=== PATIENT | male | born 1955 | race Caucasian/White ===

== ENCOUNTER 2018-03-02 00:18 | Emergency (ER) | payer SELFPAY ==
[~2018-03-02] VITALS: Ht 175.3 cm; Wt 122.0 kg
[~2018-03-02 00:18] MED LIST: ALBUAER3 INH; FOLI1TAB6 PO; GABA100C4 PO; IBUP600T26 PO; NICO21DI25 T-DERMAL; PRED20 PO; SODI1TAB PO; SYMB160A INH; THIA100 PO
[2018-03-02 00:27] VITALS: BP 141/86; PULSE 96; RESP 24; TEMP 98.2; O2SAT 96
== END 2018-03-02 02:19 | disposition left against medical advice (07) ==
LOC: NED 00:18
DX: R53.83 Other fatigue (principal)
CPT/HCPCS: 99281

== ENCOUNTER 2018-03-02 11:24 | Emergency (ER) | payer OTHER ==
[~2018-03-02] VITALS: Ht 177.8 cm; Wt 122.5 kg
[2018-03-02 11:30] VITALS: BP 163/86; PULSE 92; RESP 18; TEMP 97.6; O2SAT 100
[2018-03-02 14:02] VITALS: BP 188/91; PULSE 87; RESP 28; O2SAT 100
--- NOTE | 2018-03-02 14:29 | PD ---
HPI Chief Complaint: General Weakness Time Seen by Provider: 13:51 Travel History International Travel<30 days: No Contact w/Intl Traveler<30days: No Traveled to known affect area: No History of Present Illness HPI 62 YO M with PMH of DM, COPD presents to the ED with multiple medical complaints. The patient states that he has been feeling generally weak and tired for the last few days. He states that he was "eaten up by bedbugs and now I have this itchy rash." He states that his feet are swollen and tender. He states that the edema is chronic and improved by elevation of the feet. He states that he has a chronic cough productive of yellow sputum. He complains of intermittent dizziness for the last two days. Improved with rest. No exacerbating factors noted. No associated unilateral weakness, slurred speech. He endorses a single episode of "chest cramps" yesterday. Onset at rest, lasted 10-15 seconds before resolving. No associated nausea, vomiting, diaphoresis, palpitations. He endorses dyspnea on exertion. He uses a rescue inhaler as needed. He does not check his blood sugar at home. He is followed by the [place]. [facility] Past Medical History Arthritis: Yes Asthma: Yes Autoimmune Disease: No Cancer: No Cardiovascular Problems: Yes (HTN) COPD: Yes Diabetes: Yes Patient Takes Glucophage: No Diminished Hearing: No Endocrine: No Gastrointestinal Disorders: No Gout: Yes Genitourinary: No Hypertension: Yes Immune Disorder: No Implanted Vascular Access Dvce: No Musculoskeletal: Yes (GOUT) Neurologic: Yes Psychiatric: No Reproductive: No Respiratory: Yes Schizophrenia: Yes Thyroid Disease: No Past Surgical History Abdominal Surgery: No Cardiac Surgery: No Ear Surgery: No Endocrine Surgery: No Eye Surgery: Yes Genitourinary Surgery: No Gynecologic Surgery: No Neurologic Surgery: Yes (BRAIN) Oral Surgery: Yes Thoracic Surgery: No Tonsillectomy: Yes Other Surgery: Yes Social History Alcohol Use: Yes (1-2 beers per day) Tobacco Use: Yes (10/26 ppd) Substance Use: No Allergies-Medications (Allergen,Severity, Reaction): Coded Allergies: No Known Allergies (Verified Adverse Reaction, Unknown, 03/02/18) Reported Meds & Prescriptions Reported Meds & Active Scripts Active Proair Hfa 8.5 GM Inh (Albuterol Sulfate) 90 Mcg/Act Aer 1 Puff INH Q4H PRN 108 mcg/actuation Symbicort Inh (Budesonide/Formoterol Fumarate) 160-4.5 Mcg/Act Aero 2 Puff INH Q12HR Folic Acid 1 Mg Tablet 1 Mg PO DAILY Gnp Vitamin B-1 (Thiamine HCl) 100 Mg Tab 100 Mg PO DAILY Sodium Chloride 1 Gram Tab 1 Gm PO BID Gabapentin 100 Mg Cap 100 Mg PO TID Eq Nicotine (Nicotine) 21 Mg/24 Hour Dis 1 Patch T-DERMAL DAILY Review of Systems Except as stated in HPI: all other systems reviewed are Neg Physical Exam Narrative GENERAL: Well-nourished, well-developed obese, disheveled white male no acute distress. SKIN: Focused skin assessment warm/dry. Erythema bilateral forearms with excoriations. HEAD: Normocephalic. EYES: No scleral icterus. No injection or drainage. NECK: Supple, trachea midline. No JVD or lymphadenopathy. CARDIOVASCULAR: Regular rate and rhythm without murmurs, gallops, or rubs. RESPIRATORY: Breath sounds clear and equal bilaterally. No accessory muscle use. GASTROINTESTINAL: Abdomen soft, non-tender, nondistended. Active bowel sounds. MUSCULOSKELETAL: No cyanosis. Feet are tender bilaterally with trace edema to the ankle. No evidence of tinea in the interdigital spaces. Palpable DP pulses bilaterally. Homans sign negative bilaterally. NEUROLOGICAL: Awake and alert. Cranial nerves II through XII intact. Motor and sensory grossly within normal limits. Five out of 5 muscle strength in all muscle groups. Normal speech. BACK: Nontender without obvious deformity. No CVA tenderness. Data Data Last Documented VS Vital Signs Date Time Temp Pulse Resp B/P (MAP) Pulse Ox O2 Delivery O2 Flow Rate FiO2 03/02/18 17:11 03/02/18 17:00 82 23 98 Room Air 03/02/18 11:30 97.6 Orders Orders Complete Blood Count With Diff (03/02/18 14:17) Comprehensive Metabolic Panel (03/02/18 14:17) Prothrombin Time / Inr (Pt) (03/02/18 14:17) Act Partial Throm Time (Ptt) (03/02/18 14:17) Urinalysis - C+S If Indicated (03/02/18 14:17) Chest, Single Ap (03/02/18 14:17) Blood Glucose (03/02/18 14:17) Ecg Monitoring (03/02/18 14:17) Iv Access Insert/Monitor (03/02/18 14:17) Oximetry (03/02/18 14:17) Sodium Chloride 0.9% Flush (Ns Flush) (03/02/18 14:30) Alcohol (Ethanol) (03/02/18 14:17) Electrocardiogram (03/02/18 ) Ct Brain W/O Iv Contrast(Rout) (03/02/18 ) Sodium Chlorid 0.9% 500 Ml Inj (Ns 500 M (03/02/18 15:30) Ckmb (Isoenzyme) Profile (03/02/18 14:25) Troponin I (03/02/18 14:25) CKMB (03/02/18 14:25) CKMB% (03/02/18 14:25) Ed Discharge Order (03/02/18 15:57) Labs Laboratory Tests Test 03/02/18 14:25 03/02/18 14:55 White Blood Count 9.0 TH/MM3 Red Blood Count 4.14 MIL/MM3 Hemoglobin 14.3 GM/DL Hematocrit 40.6 % Mean Corpuscular Volume 98.2 FL Mean Corpuscular Hemoglobin 34.6 PG Mean Corpuscular Hemoglobin Concent 35.2 % Red Cell Distribution Width 12.7 % Platelet Count 251 TH/MM3 Mean Platelet Volume 7.5 FL Neutrophils (%) (Auto) 64.4 % Lymphocytes (%) (Auto) 24.9 % Monocytes (%) (Auto) 8.1 % Eosinophils (%) (Auto) 2.1 % Basophils (%) (Auto) 0.5 % Neutrophils # (Auto) 5.8 TH/MM3 Lymphocytes # (Auto) 2.2 TH/MM3 Monocytes # (Auto) 0.7 TH/MM3 Eosinophils # (Auto) 0.2 TH/MM3 Basophils # (Auto) 0.0 TH/MM3 CBC Comment DIFF FINAL Differential Comment Prothrombin Time 10.3 SEC Prothromb Time International Ratio 1.0 RATIO Activated Partial Thromboplast Time 27.9 SEC Blood Urea Nitrogen 6 MG/DL Creatinine 0.81 MG/DL Random Glucose 105 MG/DL Total Protein 7.9 GM/DL Albumin 3.9 GM/DL Calcium Level 8.5 MG/DL Alkaline Phosphatase 75 U/L Aspartate Amino Transf (AST/SGOT) 21 U/L Alanine Aminotransferase (ALT/SGPT) 23 U/L Total Bilirubin 0.6 MG/DL Sodium Level 133 MEQ/L Potassium Level 3.8 MEQ/L Chloride Level 94 MEQ/L Carbon Dioxide Level 27.5 MEQ/L Anion Gap 12 MEQ/L Estimat Glomerular Filtration Rate 97 ML/MIN Total Creatine Kinase 152 U/L Creatine Kinase MB 2.7 NG/ML Troponin I LESS THAN 0.02 NG/ML Ethyl Alcohol Level LESS THAN 3 MG/DL Urine Color YELLOW Urine Turbidity CLEAR Urine pH 5.5 Urine Specific [place] 1.005 Urine Protein NEG mg/dL Urine Glucose (UA) NEG mg/dL Urine Ketones NEG mg/dL Urine Occult Blood NEG Urine Nitrite NEG Urine Bilirubin NEG Urine Urobilinogen LESS THAN 2.0 MG/DL Urine Leukocyte Esterase NEG Urine Squamous Epithelial Cells 1 /hpf Microscopic Urinalysis Comment CATH-CULT NOT IND MDM Medical Decision Making Medical Screen Exam Complete: Yes Emergency Medical Condition: Yes Differential Diagnosis Hypertension versus hyperglycemia versus neuropathy versus metabolic derangement versus deconditioning versus dependent edema versus less likely ACS versus TIA versus other Narrative Course 62 YO M with PMH of DM, COPD presents to the ED with multiple medical complaints. He complains of being weak and tired, he complains of pruritic rash , he complains of edema and pain in bilateral feet, complains of chronic cough, complains of intermittent dizziness, dyspnea on exertion, "chest cramps." [facility] patient is afebrile, pulse 92, O2 sat 100% on room air with respiratory rate of 18, BP 163/86 on presentation. On exam this is a disheveled, obese white male in no acute distress. No focal neuro deficits. Erythematous, blanching rash of bilateral upper extremities with excoriations. Feet are tender bilaterally with trace edema. Homans sign negative bilaterally. IV was established. Patient was administered 500 mL's normal saline. EKG rate 80, sinus rhythm with short NH interval. NH interval 115, QRS 88, QTC 425 ms. Normal axis. No acute ST changes. Reviewed by Dr. Jimenez. CXR: Mild compensated cardiomegaly. Cardiac enzymes negative 1. CT brain: No acute intracranial abnormality. CBC: No concerning abnormalities. Coags: INR 1.0. CMP: Sodium 133, chloride 94. BUN/creatinine within normal limits. UA: No culture indicated. Alcohol less than 3. I reviewed the patient's record. He is been here with similar complaints in the past. I discussed the results of the workup with the patient. He was reassured by the negative workup. He is instructed to resume at home medications as previously prescribed, elevate the feet or wear compression stockings as possible, [facility] He indicated understanding of instructions and is agreeable to the care plan. The patient is stable and discharged home. Diagnosis Primary Impression: Pain in both feet Additional Impression: Multiple somatic complaints [facility]errals: [facility] [place] Additional Instructions: Rest, hydrate. Resume medications as previously prescribed. Elevate the feet and legs as you are able. Compression socks may help to reduce edema and fatigue in the feet and legs. [facility]. Return to the ED for worsening symptoms or any urgent or emergent medical condition. Disposition: 01 DISCHARGE HOME Condition: Stable Cindy Maya March 02, 2018 14:29
[2018-03-02] MEDS ORDERED: SODIUM CHLORIDE 0.9% FLUSH 10 ML FLUSH IV FLUSH PRN (14:30)
[2018-03-02 14:37] LABS: AUTOMATED NEUTROPHIL # 5.8 TH/MM3 (1.8-7.7); BASOPHIL % 0.5 % (0.0-2.0); EOSINOPHIL # 0.2 TH/MM3 (0-0.4); EOSINOPHIL % 2.1 % (0.0-4.0); HEMATOCRIT 40.6 % (39.0-51.0); HEMOGLOBIN 14.3 GM/DL (13.0-17.0); LYMPH % 24.9 % (9.0-44.0); LYMPHOCYTE # 2.2 TH/MM3 (1.0-4.8); MEAN CELL VOLUME 98.2 FL (80.0-100.0); MEAN CORPUSCULAR HEMOGLOBIN 34.6 PG (27.0-34.0); MEAN CORPUSCULAR HGB CONC 35.2 % (32.0-36.0); MEAN PLATELET VOLUME 7.5 FL (7.0-11.0); MONO % 8.1 % (0.0-8.0); MONOCYTE # 0.7 TH/MM3 (0-0.9); NEUT % 64.4 % (16.0-70.0); PLATELET COUNT 251 TH/MM3 (150-450); RED BLOOD COUNT 4.14 MIL/MM3 (4.50-5.90); RED CELL DISTRIBUTION WIDTH 12.7 % (11.6-17.2)
--- NOTE | 2018-03-02 14:46 | RADRPT ---
EXAM DATE/TIME: 03/02/2018 14:23 [facility] COMPARISON: CHEST SINGLE AP, September 06, 2017, 11:58. INDICATIONS : Cough. SOB. MEDICAL HISTORY : Chronic obstructive pulmonary disease. Hypertension Asthma. Diabetes. SURGICAL HISTORY : None. ENCOUNTER: Initial ACUITY: 1 day PAIN SCORE: 0/10 LOCATION: Bilateral chest FINDINGS: A single view of the chest demonstrates the lungs to be symmetrically aerated without evidence of mas s, infiltrate or effusion. Mild cardiomegaly. Osseous structures are intact. CONCLUSION: Mild compensated cardiomegaly. Sohail Salazar MD FACR on March 02, 2018 at 14:43 Board Certified Radiologist. This report was verified electronically.
[2018-03-02 14:48] LABS: PROTHROMBIN TIME - PATIENT 10.3 SEC (9.8-11.6)
[2018-03-02 14:55] VITALS: O2SAT 100
[2018-03-02 15:00] LABS: ALBUMIN 3.9 GM/DL (3.4-5.0); ALT (GPT) 23 U/L (12-78); AST (GOT) 21 U/L (15-37); BICARBONATE 27.5 MEQ/L (21.0-32.0); BLOOD UREA NITROGEN 6 MG/DL (7-18); CALCIUM 8.5 MG/DL (8.5-10.1); CHLORIDE 94 MEQ/L (98-107); CREATININE 0.81 MG/DL (0.60-1.30); GLOMERULAR FILTRATION RATE 97 ML/MIN (>89); GLUCOSE,RANDOM 105 MG/DL (74-106); SODIUM (NA) 133 MEQ/L (136-145)
[2018-03-02 15:02] LABS: ALKALINE PHOSPHATASE 75 U/L (45-117); TOTAL BILIRUBIN ADULT 0.6 MG/DL (0.2-1.0); TOTAL PROTEIN 7.9 GM/DL (6.4-8.2)
--- NOTE | 2018-03-02 15:24 | RADRPT ---
EXAM DATE/TIME: 03/02/2018 14:56 [facility] COMPARISON: CT BRAIN W/O CONTRAST, June 01, 2015, 14:08. INDICATIONS : Dizziness RADIATION DOSE: 56.35 CTDIvol (mGy) MEDICAL HISTORY : Cardiovascular disease. Hypertension. Diabetes SURGICAL HISTORY : Brain surgery ENCOUNTER: Initial ACUITY: 1 day PAIN SCALE: 0/10 LOCATION: cranial TECHNIQUE: Multiple contiguous axial images were obtained of the head. Using automated exposure control and adj ustment of the mA and/or kV according to patient size, radiation dose was kept as low as reasonably a chievable to obtain optimal diagnostic quality images. DICOM format image data is available electro nically for review and comparison. FINDINGS: CEREBRUM: The ventricles are normal for age. No evidence of midline shift, mass lesion, hemorrhage or acute in farction. No extra-axial fluid collections are seen. POSTERIOR FOSSA: The cerebellum and brainstem are intact. The 4th ventricle is midline. The cerebellopontine angle i s unremarkable. EXTRACRANIAL: The visualized portion of the orbits is intact. SKULL: The calvaria is intact. No evidence of skull fracture. CONCLUSION: 1. No acute intracranial abnormality. You Banks MD on March 02, 2018 at 15:20 Board Certified Radiologist. This report was verified electronically.
[2018-03-02 15:30] LABS: BILIRUBIN, URINE NEG (NEG); BLOOD, URINE NEG (NEG); GLUCOSE,URINE NEG (NEG); KETONE, URINE NEG (NEG); NITRITE,URINE NEG (NEG); PH, URINE 5.5 (5.0-8.5); SQUAMOUS EPITHELIAL CELL URINE 1 /hpf (0-5); URINE COLOR YELLOW (YELLW/STRAW); URINE LEUKOCYTE ESTERASE NEG (NEG)
[2018-03-02] MEDS ORDERED: SODIUM CHLORID 0.9% 500 ML INJ 500 ML IV ONE (15:30)
[2018-03-02 15:52] LABS: TROPONIN I LESS THAN 0.02 NG/ML (0.02-0.05)
--- NOTE | 2018-03-02 16:21 | PD ---
Data Data Last Documented VS Vital Signs Date Time Temp Pulse Resp B/P (MAP) Pulse Ox O2 Delivery O2 Flow Rate FiO2 03/02/18 14:55 100 Room Air 03/02/18 14:02 87 28 03/02/18 11:30 97.6 Orders Orders Complete Blood Count With Diff (03/02/18 14:17) Comprehensive Metabolic Panel (03/02/18 14:17) Prothrombin Time / Inr (Pt) (03/02/18 14:17) Act Partial Throm Time (Ptt) (03/02/18 14:17) Urinalysis - C+S If Indicated (03/02/18 14:17) Chest, Single Ap (03/02/18 14:17) Blood Glucose (03/02/18 14:17) Ecg Monitoring (03/02/18 14:17) Iv Access Insert/Monitor (03/02/18 14:17) Oximetry (03/02/18 14:17) Sodium Chloride 0.9% Flush (Ns Flush) (03/02/18 14:30) Alcohol (Ethanol) (03/02/18 14:17) Electrocardiogram (03/02/18 ) Ct Brain W/O Iv Contrast(Rout) (03/02/18 ) Sodium Chlorid 0.9% 500 Ml Inj (Ns 500 M (03/02/18 15:30) Ckmb (Isoenzyme) Profile (03/02/18 14:25) Troponin I (03/02/18 14:25) CKMB (03/02/18 14:25) CKMB% (03/02/18 14:25) Ed Discharge Order (03/02/18 15:57) Labs Laboratory Tests Test 03/02/18 14:25 03/02/18 14:55 White Blood Count 9.0 TH/MM3 Red Blood Count 4.14 MIL/MM3 Hemoglobin 14.3 GM/DL Hematocrit 40.6 % Mean Corpuscular Volume 98.2 FL Mean Corpuscular Hemoglobin 34.6 PG Mean Corpuscular Hemoglobin Concent 35.2 % Red Cell Distribution Width 12.7 % Platelet Count 251 TH/MM3 Mean Platelet Volume 7.5 FL Neutrophils (%) (Auto) 64.4 % Lymphocytes (%) (Auto) 24.9 % Monocytes (%) (Auto) 8.1 % Eosinophils (%) (Auto) 2.1 % Basophils (%) (Auto) 0.5 % Neutrophils # (Auto) 5.8 TH/MM3 Lymphocytes # (Auto) 2.2 TH/MM3 Monocytes # (Auto) 0.7 TH/MM3 Eosinophils # (Auto) 0.2 TH/MM3 Basophils # (Auto) 0.0 TH/MM3 CBC Comment DIFF FINAL Differential Comment Prothrombin Time 10.3 SEC Prothromb Time International Ratio 1.0 RATIO Activated Partial Thromboplast Time 27.9 SEC Blood Urea Nitrogen 6 MG/DL Creatinine 0.81 MG/DL Random Glucose 105 MG/DL Total Protein 7.9 GM/DL Albumin 3.9 GM/DL Calcium Level 8.5 MG/DL Alkaline Phosphatase 75 U/L Aspartate Amino Transf (AST/SGOT) 21 U/L Alanine Aminotransferase (ALT/SGPT) 23 U/L Total Bilirubin 0.6 MG/DL Sodium Level 133 MEQ/L Potassium Level 3.8 MEQ/L Chloride Level 94 MEQ/L Carbon Dioxide Level 27.5 MEQ/L Anion Gap 12 MEQ/L Estimat Glomerular Filtration Rate 97 ML/MIN Total Creatine Kinase 152 U/L Creatine Kinase MB 2.7 NG/ML Troponin I LESS THAN 0.02 NG/ML Ethyl Alcohol Level LESS THAN 3 MG/DL Urine Color YELLOW Urine Turbidity CLEAR Urine pH 5.5 Urine Specific [place] 1.005 Urine Protein NEG mg/dL Urine Glucose (UA) NEG mg/dL Urine Ketones NEG mg/dL Urine Occult Blood NEG Urine Nitrite NEG Urine Bilirubin NEG Urine Urobilinogen LESS THAN 2.0 MG/DL Urine Leukocyte Esterase NEG Urine Squamous Epithelial Cells 1 /hpf Microscopic Urinalysis Comment CATH-CULT NOT IND MDM Supervised Visit with SHA[facility]: Yes Narrative Course I, Dr. Jimenez, have reviewed the advance practice practitioner's documentation and am in agreement, met with the patient face to face, made the diagnosis, and the medical decision making was done by me. *My assessment and Findings: Patient came in with multiple vague complaints. Extensive workup was done which I have reviewed in detail. brain CT and labs and urine are clean. [facility]. Diagnosis Primary Impression: Pain in both feet Additional Impression: Multiple somatic complaints Referrals: [facility] Additional Instruction: Rest, hydrate. Resume medications as previously prescribed. Elevate the feet and legs as you are able. Compression socks may help to reduce edema and fatigue in the feet and legs. [facility] Return to the ED for worsening symptoms or any urgent or emergent medical condition. Disposition: 01 DISCHARGE HOME Condition: Stable Rylan Jimenez MD March 02, 2018 16:21
[2018-03-02 17:00] VITALS: BP 160/82; PULSE 82; RESP 23; O2SAT 98
--- NOTE | 2018-03-03 18:33 | EKG ---
Date Performed: 03/02/2018 Time Performed: 14:48:52 PTAGE: 62 years EKG: Sinus rhythm WITH SHORT MT INTERVAL BORDERLINE ECG PREVIOUS TRACING : 11/14/2017 21.27 Since the previous tracing, no significant change noted DOCTOR: Radha Mon Interpretating Date/Time 03/03/2018 18:31:58
== END 2018-03-02 17:52 | disposition home or self-care (01) ==
LOC: NEPC 11:24
DX: M79.672 Pain in left foot (principal); M79.671 Pain in right foot; R68.89 Other general symptoms and signs; R94.31 Abnormal electrocardiogram [ECG] [EKG]; I10 Essential (primary) hypertension; E11.9 Type 2 diabetes mellitus without complications; J44.9 Chronic obstructive pulmonary disease, unspecified; F20.9 Schizophrenia, unspecified; F17.210 Nicotine dependence, cigarettes, uncomplicated; Z79.899 Other long term (current) drug therapy
CPT/HCPCS: 70450; 71045; 80053; 80307; 81001; 82550; 82552; 84484; 85025; 85610; 85730; 93005; 96360; 99285; J7040

== ENCOUNTER 2018-03-17 18:17 | Inpatient (IN) | payer OTHER ==
[~2018-03-17] VITALS: Ht 175.3 cm; Wt 121.4 kg
[~2018-03-17 18:17] MED LIST changes: -IBUP600T26 PO; -PRED20 PO
[2018-03-17 18:28] VITALS: BP 205/99; PULSE 90; RESP 26; TEMP 98.1
[2018-03-17 19:37] VITALS: BP 195/109; PULSE 95; RESP 20; O2SAT 100
[2018-03-17] MEDS ORDERED: RESP: ALBUTEROL 2.5 MG/IPRATROPIUM 0.5 MG NEB (SCH) NEB ONE (19:45)
[2018-03-17 20:07] VITALS: BP 171/93
[2018-03-17 20:22] LABS: AUTOMATED NEUTROPHIL # 9.4 TH/MM3 (1.8-7.7); BASOPHIL # 0.1 TH/MM3 (0-0.2); BASOPHIL % 0.6 % (0.0-2.0); EOSINOPHIL # 0.1 TH/MM3 (0-0.4); EOSINOPHIL % 1.2 % (0.0-4.0); HEMATOCRIT 42.1 % (39.0-51.0); HEMOGLOBIN 14.7 GM/DL (13.0-17.0); LYMPH % 17.2 % (9.0-44.0); LYMPHOCYTE # 2.2 TH/MM3 (1.0-4.8); MEAN CELL VOLUME 98.1 FL (80.0-100.0); MEAN CORPUSCULAR HEMOGLOBIN 34.3 PG (27.0-34.0); MEAN PLATELET VOLUME 7.6 FL (7.0-11.0); MONO % 6.2 % (0.0-8.0); MONOCYTE # 0.8 TH/MM3 (0-0.9); NEUT % 74.8 % (16.0-70.0); PLATELET COUNT 280 TH/MM3 (150-450); RED BLOOD COUNT 4.29 MIL/MM3 (4.50-5.90); RED CELL DISTRIBUTION WIDTH 13.4 % (11.6-17.2); WHITE BLOOD COUNT 12.6 TH/MM3 (4.0-11.0)
--- NOTE | 2018-03-17 20:34 | RADRPT ---
EXAM DATE: 03/17/2018 8:31 PM EDT AGE/SEX: 62 years / Male INDICATIONS: Chest pain, dizziness and shortness of breath. CLINICAL DATA: This is the patient's initial encounter. Patient reports that signs and symptoms have been present for 1 day and indicates a pain score of 5/10. MEDICAL/SURGICAL HISTORY: Diabetes. Hypertension. Chronic obstructive pulmonary disease. None . [place] [facility] [place]. . FINDINGS: A single AP view of the chest demonstrates the lungs to be symmetrically aerated without evidence of mass, infiltrate or effusion. The cardiomediastinal contours are unremarkable. Osseous structures a re intact. CONCLUSION: No evidence of acute process. Electronically signed by: Anjel Johnson MD 03/17/2018 8:33 PM EDT
[2018-03-17 20:36] LABS: ALBUMIN 3.9 GM/DL (3.4-5.0); AST (GOT) 19 U/L (15-37); BICARBONATE 22.4 MEQ/L (21.0-32.0); BLOOD UREA NITROGEN 8 MG/DL (7-18); CHLORIDE 95 MEQ/L (98-107); CREATININE 0.75 MG/DL (0.60-1.30); GLOMERULAR FILTRATION RATE 106 ML/MIN (>89); GLUCOSE,RANDOM 92 MG/DL (74-106); SODIUM (NA) 128 MEQ/L (136-145)
[2018-03-17 20:38] LABS: INTERNATIONAL NORMALIZED RATIO 1.1 RATIO; PROTHROMBIN TIME - PATIENT 10.7 SEC (9.8-11.6)
[2018-03-17 20:42] LABS: ALKALINE PHOSPHATASE 72 U/L (45-117); ALT (GPT) 23 U/L (12-78); TOTAL BILIRUBIN ADULT 0.5 MG/DL (0.2-1.0); TOTAL PROTEIN 8.2 GM/DL (6.4-8.2); TROPONIN I 0.16 NG/ML (0.02-0.05)
--- NOTE | 2018-03-17 21:08 | RADRPT ---
EXAM DATE: 03/17/2018 8:54 PM EDT AGE/SEX: 62 years / Male INDICATIONS: Dizziness. CLINICAL DATA: This is the patient's initial encounter. Patient reports that signs and symptoms have been present for 1 day and indicates a pain score of 0/10. MEDICAL/SURGICAL HISTORY: Cardiovascular disease. Hypertension. Diabetes. None. RADIATION DOSE: 36.03 CTDI (mGy) COMPARISON: [facility], CT BRAIN W/O CONTRAST, 03/02/2018. . TECHNIQUE: CT of the head without contrast. Using automated exposure control and adjustment of the mA and/or kV according to patient size, radiation dose was kept as low as reasonably achievable to ob tain optimal diagnostic quality images. FINDINGS: Cerebrum: The ventricles are normal for age. No evidence of midline shift, mass lesion, hemorrhage or acute infarction. No extraaxial fluid collections are seen. Posterior Fossa: The cerebellum and brainstem are intact. The 4th ventricle is midline. The cerebe llopontine angle is unremarkable. Extracranial: The visualized portion of the orbits is intact. Skull: The calvaria is intact. No evidence of skull fracture. CONCLUSION: 1. Stable evaluation. 2. No evidence of acute infarct, hemorrhage, mass or edema. Electronically signed by: Anjel Johnson MD 03/17/2018 9:07 PM EDT
[2018-03-17 21:55] LABS: BILIRUBIN, URINE NEG (NEG); BLOOD, URINE NEG (NEG); GLUCOSE,URINE NEG (NEG); KETONE, URINE NEG (NEG); NITRITE,URINE NEG (NEG); SQUAMOUS EPITHELIAL CELL URINE <1 /hpf (0-5); URINE COLOR LIGHT-YELLOW (YELLW/STRAW); URINE LEUKOCYTE ESTERASE NEG (NEG)
[2018-03-17] MEDS ORDERED: SODIUM CHLORID 0.9% 500 ML INJ 500 ML IV ONE (22:15)
--- NOTE | 2018-03-17 22:16 | PD ---
HPI Chief Complaint: Dizziness Time Seen by Provider: 19:38 Travel History International Travel<30 days: No Contact w/Intl Traveler<30days: No Traveled to known affect area: No History of Present Illness HPI 62-year-old male from home with chief complaint of dizziness near syncope. He has been symptomatic for about the last 24 hours. He is almost fallen several times and 911 was called by friends for him to be seen at the hospital. Patient denies any pain or headache. He reports dizziness that is not room spinning dizziness, not consistent with vertigo. He is a smoker. He is hypertensive. He has no history of stroke in the past PFSH Past Medical History Arthritis: Yes Asthma: Yes Autoimmune Disease: No Cancer: No Cardiovascular Problems: Yes (HTN) COPD: Yes Diabetes: Yes Patient Takes Glucophage: No Diminished Hearing: No Endocrine: No Gastrointestinal Disorders: No Gout: Yes Genitourinary: No Hypertension: Yes Immune Disorder: No Implanted Vascular Access Dvce: No Musculoskeletal: Yes (GOUT) Neurologic: Yes Psychiatric: No Reproductive: No Respiratory: Yes (COPD) Schizophrenia: Yes Thyroid Disease: No Influenza Vaccination: Yes ?: Not Past Surgical History Abdominal Surgery: No Cardiac Surgery: No Ear Surgery: No Endocrine Surgery: No Eye Surgery: Yes Genitourinary Surgery: No Gynecologic Surgery: No Neurologic Surgery: Yes (ORBITAL BLOWOUT FRACTURE IN PAST) Oral Surgery: Yes Thoracic Surgery: No Tonsillectomy: Yes Other Surgery: Yes Social History Alcohol Use: Yes (1-2 beers per day) Tobacco Use: Yes (10/26 ppd) Substance Use: No Allergies-Medications (Allergen,Severity, Reaction): Coded Allergies: No Known Allergies (Verified Adverse Reaction, Unknown, 03/17/18) Reported Meds & Prescriptions Reported Meds & Active Scripts Active Proair Hfa 8.5 GM Inh (Albuterol Sulfate) 90 Mcg/Act Aer 1 Puff INH Q4H PRN 108 mcg/actuation Symbicort Inh (Budesonide/Formoterol Fumarate) 160-4.5 Mcg/Act Aero 2 Puff INH Q12HR Folic Acid 1 Mg Tablet 1 Mg PO DAILY Gnp Vitamin B-1 (Thiamine HCl) 100 Mg Tab 100 Mg PO DAILY Sodium Chloride 1 Gram Tab 1 Gm PO BID Gabapentin 100 Mg Cap 100 Mg PO TID Eq Nicotine (Nicotine) 21 Mg/24 Hour Dis 1 Patch T-DERMAL DAILY Review of Systems Except as stated in HPI: all other systems reviewed are Neg General / Constitutional: No: Fever, Chills HENT: No: Headaches, Vertigo Cardiovascular: No: Chest Pain or Discomfort, Palpitations, Irregular Rhythm Respiratory: Positive: Shortness of Breath, No: Cough Gastrointestinal: No: Nausea, Vomiting Genitourinary: No: Urgency, Frequency, Dysuria Musculoskeletal: No: Myalgias Skin: No Rash Neurologic: Positive: Dizziness, No: Ataxia, Change in Mentation, Slurred Speech Physical Exam Narrative GENERAL: 62-year-old male in no distress SKIN: Focused skin assessment warm/dry. HEAD: Atraumatic. Normocephalic. EYES: Pupils equal and round. No scleral icterus. No injection or drainage. ENT: No nasal bleeding or discharge. Mucous membranes pink and moist. NECK: Trachea midline. No JVD. CARDIOVASCULAR: Regular rate and rhythm. No murmur appreciated. RESPIRATORY: No accessory muscle use. Clear to auscultation. Breath sounds equal bilaterally. GASTROINTESTINAL: Abdomen soft, non-tender, nondistended. Hepatic and splenic margins not palpable. MUSCULOSKELETAL: No obvious deformities. No clubbing. No cyanosis. No edema. NEUROLOGICAL: Awake and alert. No obvious cranial nerve deficits. Motor grossly within normal limits. Normal speech. His cerebellar exam is normal; finger to nose is normal no pronator drift PSYCHIATRIC: Appropriate mood and affect; insight and judgment normal. Data Data Last Documented VS Vital Signs Date Time Temp Pulse Resp B/P (MAP) Pulse Ox O2 Delivery O2 Flow Rate FiO2 03/17/18 20:07 171/93 (119) 03/17/18 19:37 95 20 100 Room Air 03/17/18 18:[address] Brain W/O Iv Contrast(Rout) (03/17/18 ) Chest, Single Ap (03/17/18 ) Complete Blood Count With Diff (03/17/18 19:44) Comprehensive Metabolic Panel (03/17/18 19:44) Troponin I (03/17/18 19:44) Creatine Kinase (Cpk) (03/17/18 19:44) Prothrombin Time / Inr (Pt) (03/17/18 19:44) Albuterol-Ipratropium Neb (Duoneb Neb) (03/17/18 19:45) Electrocardiogram (03/17/18 ) IV (03/17/18 19:44) Urinalysis - C+S If Indicated (03/17/18 21:13) Sodium Chlorid 0.9% 500 Ml Inj (Ns 500 M (03/17/18 22:15) Labs Laboratory Tests Test 03/17/18 19:50 03/17/18 21:22 White Blood Count 12.6 TH/MM3 Red Blood Count 4.29 MIL/MM3 Hemoglobin 14.7 GM/DL Hematocrit 42.1 % Mean Corpuscular Volume 98.1 FL Mean Corpuscular Hemoglobin 34.3 PG Mean Corpuscular Hemoglobin Concent 35.0 % Red Cell Distribution Width 13.4 % Platelet Count 280 TH/MM3 Mean Platelet Volume 7.6 FL Neutrophils (%) (Auto) 74.8 % Lymphocytes (%) (Auto) 17.2 % Monocytes (%) (Auto) 6.2 % Eosinophils (%) (Auto) 1.2 % Basophils (%) (Auto) 0.6 % Neutrophils # (Auto) 9.4 TH/MM3 Lymphocytes # (Auto) 2.2 TH/MM3 Monocytes # (Auto) 0.8 TH/MM3 Eosinophils # (Auto) 0.1 TH/MM3 Basophils # (Auto) 0.1 TH/MM3 CBC Comment DIFF FINAL Differential Comment Prothrombin Time 10.7 SEC Prothromb Time International Ratio 1.1 RATIO Blood Urea Nitrogen 8 MG/DL Creatinine 0.75 MG/DL Random Glucose 92 MG/DL Total Protein 8.2 GM/DL Albumin 3.9 GM/DL Calcium Level 9.0 MG/DL Alkaline Phosphatase 72 U/L Aspartate Amino Transf (AST/SGOT) 19 U/L Alanine Aminotransferase (ALT/SGPT) 23 U/L Total Bilirubin 0.5 MG/DL Sodium Level 128 MEQ/L Potassium Level 4.0 MEQ/L Chloride Level 95 MEQ/L Carbon Dioxide Level 22.4 MEQ/L Anion Gap 11 MEQ/L Estimat Glomerular Filtration Rate 106 ML/MIN Total Creatine Kinase 74 U/L Troponin I 0.16 NG/ML Urine Color LIGHT-YELLOW Urine Turbidity CLEAR Urine pH 6.0 Urine Specific [place] 1.002 Urine Protein NEG mg/dL Urine Glucose (UA) NEG mg/dL Urine Ketones NEG mg/dL Urine Occult Blood NEG Urine Nitrite NEG Urine Bilirubin NEG Urine Urobilinogen LESS THAN 2.0 MG/DL Urine Leukocyte Esterase NEG Urine Squamous Epithelial Cells <1 /hpf Microscopic Urinalysis Comment CULT NOT INDICATED MDM Medical Decision Making Medical Screen Exam Complete: Yes Emergency Medical Condition: Yes Differential Diagnosis Cerebellar stroke, syncope/near syncope, COPD Narrative Course Patient seen and evaluated in the emergency department. CT brain was negative for acute findings, were normal with the exception of a leukocytosis and a sodium of 128. His urine was negative as well. He was given a DuoNeb and did feel better. He does still report dizziness intermittently. We will give him a dose of meclizine a 500 cc bolus of normal saline and admit for observation. Diagnosis Primary Impression: Near syncope Additional Impressions: Hyponatremia Elevated troponin Admitting Information Admitting Physician Requests: Admit Condition: Stable Rg Gaspar DO March 17, 2018 22:16
--- NOTE | 2018-03-17 22:42 | HHI.HP ---
[facility] Service [facility] Primary Care Physician [facility] Admission Diagnosis ACS, near syncope, hyponatremia Diagnoses: (1) Dizziness Diagnosis: Principal (2) Elevated troponin Diagnosis: Principal (3) Hyponatremia Diagnosis: Principal (4) HTN (hypertension) Diagnosis: Principal (5) Leukocytosis Diagnosis: Principal (6) Alcohol abuse Diagnosis: Principal (7) Tobacco abuse Diagnosis: Principal Travel History International Travel<30 Days: No Contact w/Intl Traveler <30 Da: No Traveled to Known Affected Are: No History of Present Illness This is a 62-year-old male with a PMH of HTN, Hyperlipidemia, COPD, Gout, Alcohol Abuse and Tobacco Abuse who presented to the ER w/ complaints of dizziness x1 day. Reports near syncope today w/ left-sided chest "cramping". No nausea, vomiting, headache or vision changes. Denies cough, fever, chills or h/o similar symptoms. On arrival, BP 205/99, HR 90, O2 sat 100% on RA, Afebrile. WBC 12.6. Na 128. Troponin 0.16. INR 1.1 CXR with no acute findings. CT Head negative. Review of Systems Except as stated in HPI: all other systems reviewed are Neg ROS: 14 point review of systems otherwise negative. Past Family Social History Past Medical History PMH: HTN, Hyperlipidemia, COPD, Gout, Alcohol Abuse and Tobacco Abuse Past Surgical History PAST SURGICAL HISTORY: Eye Surgery, Tonsillectomy Allergies: Coded Allergies: No Known Allergies (Verified Adverse Reaction, Unknown, 03/17/18) Family History PAST FAMILY HISTORY: Reviewed. No h/o DM or CAD Social History PAST SOCIAL HISTORY: Drinks daily. Smokes 1/4ppd. Negative for drugs. Physical Exam Vital Signs Vital Signs Date Time Temp Pulse Resp B/P (MAP) Pulse Ox O2 Delivery O2 Flow Rate FiO2 03/17/18 20:07 171/93 (119) 03/17/18 19:37 95 20 195/109 (137) 100 Room Air 03/17/18 18:28 98.1 90 26 205/99 (134) Physical Exam PE: GENERAL: Middle-aged white male in no acute distress, disheveled. Smells of tobacco. HEENT: PERRLA, EOMI. No scleral icterus or conjunctival pallor. No lid lag or facial droop. CARDIOVASCULAR: Regular rate and rhythm. No obvious murmurs to auscultation. No chest tenderness to palpation. RESPIRATORY: No obvious rhonchi or wheezing. Clear to auscultation. Breath sounds equal bilaterally. GASTROINTESTINAL: Abdomen soft, non-tender, nondistended. BS normal. MUSCULOSKELETAL: Extremities without clubbing, cyanosis, or edema. No obvious deformities. NEUROLOGICAL: Awake, alert and oriented x4. No focal neurologic deficits. Moving both upper and lower extremities spontaneously. Laboratory Laboratory Tests Test 03/17/18 19:50 03/17/18 21:22 White Blood Count 12.6 Red Blood Count 4.29 Hemoglobin 14.7 Hematocrit 42.1 Mean Corpuscular Volume 98.1 Mean Corpuscular Hemoglobin 34.3 Mean Corpuscular Hemoglobin Concent 35.0 Red Cell Distribution Width 13.4 Platelet Count 280 Mean Platelet Volume 7.6 Neutrophils (%) (Auto) 74.8 Lymphocytes (%) (Auto) 17.2 Monocytes (%) (Auto) 6.2 Eosinophils (%) (Auto) 1.2 Basophils (%) (Auto) 0.6 Neutrophils # (Auto) 9.4 Lymphocytes # (Auto) 2.2 Monocytes # (Auto) 0.8 Eosinophils # (Auto) 0.1 Basophils # (Auto) 0.1 CBC Comment DIFF FINAL Differential Comment Prothrombin Time 10.7 Prothromb Time International Ratio 1.1 Blood Urea Nitrogen 8 Creatinine 0.75 Random Glucose 92 Total Protein 8.2 Albumin 3.9 Calcium Level 9.0 Alkaline Phosphatase 72 Aspartate Amino Transf (AST/SGOT) 19 Alanine Aminotransferase (ALT/SGPT) 23 Total Bilirubin 0.5 Sodium Level 128 Potassium Level 4.0 Chloride Level 95 Carbon Dioxide Level 22.4 Anion Gap 11 Estimat Glomerular Filtration Rate 106 Total Creatine Kinase 74 Troponin I 0.16 Urine Color LIGHT-YELLOW Urine Turbidity CLEAR Urine pH 6.0 Urine Specific [place] 1.002 Urine Protein NEG Urine Glucose (UA) NEG Urine Ketones NEG Urine Occult Blood NEG Urine Nitrite NEG Urine Bilirubin NEG Urine Urobilinogen LESS THAN 2.0 Urine Leukocyte Esterase NEG Urine Squamous Epithelial Cells <1 Microscopic Urinalysis Comment CULT NOT INDICATED Result Diagram: 03/17/18194903/17/181949 Caprini VTE Risk Assessment Caprini VTE Risk Assessment: No/Low Risk (score <= 1) Caprini Risk Assessment Model Point Value = 1 Point Value = 2 Point Value = 3 Point Value = 5 Age 41-60 Minor surgery BMI > 25 kg/m2 Swollen legs Varicose veins or History of unexplained or recurrent spontaneous Oral contraceptives or hormone replacement Sepsis (< 1 month) Serious lung disease, including pneumonia (< 1 month) Abnormal pulmonary function Acute myocardial infarction Congestive heart failure (< 1 month) History of inflammatory bowel disease Medical patient at bed rest Age 61-74 Arthroscopic surgery Major open surgery (> 45 min) Laparoscopic surgery (> 45 min) Malignancy Confined to bed (> 72 hours) Immobilizing plaster cast Central venous access Age >= 75 History of VTE Family history of VTE Factor V Leiden Prothrombin [id number] Lupus anticoagulant Anticardiolipin antibodies Elevated serum homocysteine Heparin-induced thrombocytopenia Other congenital or acquired thrombophilia Stroke (< 1 month) Elective arthroplasty Hip, pelvis, or leg fracture Acute spinal cord injury (< 1 month) Prophylaxis Regimen Total Risk Factor Score Risk Level Prophylaxis Regimen 0-1 Low Early ambulation 2 Moderate Order ONE of the following: *Sequential Compression Device (SCD) *Heparin 5000 units SQ BID 3-4 Higher Order ONE of the following medications: *Heparin 5000 units SQ TID *Enoxaparin/Lovenox 40 mg SQ daily (WT < 150 kg, CrCl > 30 mL/min) *Enoxaparin/Lovenox 30 mg SQ daily (WT < 150 kg, CrCl > 10-29 mL/min) *Enoxaparin/Lovenox 30 mg SQ BID (WT < 150 kg, CrCl > 30 mL/min) AND/OR *Sequential Compression Device (SCD) 5 or more Highest Order ONE of the following medications: *Heparin 5000 units SQ TID (Preferred with Epidurals) *Enoxaparin/Lovenox 40 mg SQ daily (WT < 150 kg, CrCl > 30 mL/min) *Enoxaparin/Lovenox 30 mg SQ daily (WT < 150 kg, CrCl > 10-29 mL/min) *Enoxaparin/Lovenox 30 mg SQ BID (WT < 150 kg, CrCl > 30 mL/min) AND *Sequential Compression Device (SCD) Assessment and Plan Problem List: (1) Dizziness ICD Code: R42 - Dizziness and giddiness (2) Elevated troponin ICD Code: R74.8 - Abnormal levels of other serum enzymes (3) Hyponatremia ICD Code: E87.1 - Hypo-osmolality and hyponatremia (4) Leukocytosis ICD Code: D72.829 - Elevated white blood cell count, unspecified (5) HTN (hypertension) ICD Code: I10 - Essential (primary) hypertension (6) Tobacco abuse ICD Code: Z72.0 - Tobacco use (7) Alcohol abuse ICD Code: F10.10 - Alcohol abuse, uncomplicated Status: Chronic Assessment and Plan A/P: 1. Dizziness: acute onset of dizziness w/ near syncopal event, likely secondary to underlying ischemia. CT Head w/ no acute findings, images reviewed by me. Check Echo for valvular abnormality. Telemetry. IVF for hydration. 2. Elevated Trop: Trop 0.16, no acute EKG changes, no c/o chest pain only "cramping". ASA, Statin, Metoprolol, NTG/Morphine prn. Check serial cardiac enzymes for trend, consult Cardiology for further intervention/recommendations. 3. Leukocytosis: WBC 12.6, no signs of infection. CXR w/ no acute findings, images reviewed by me. U/a negative for UTI. Likely reactive. Repeat labs in am. 4. HTN: Uncontrolled. BP 205/99, HR 90 on arrival, Metoprolol PO, monitor BP , antihypertensives as needed for BP >180 5. Hyponatremia: Na 128, dehydration/alcohol abuse, IVF for hydration, repeat labs in am. 6. Alcohol Abuse: Drinks daily. CIWA, Seizure Precautions, MVT/Thiamine/ Folate replacement. 7. Tobacco Abuse: Pt counselled. Ativan prn. No NicoDerm to avoid further vasoconstriction. 8. DVT Prophylaxis: Heparin sq 9. Social work for DC planning as needed. 10. Case discussed at length with the ER physician, lab/records/imaging reviewed by me. Physician Certification 2 Midnight Certification Type: Admission for Inpatient Services Order for Inpatient Services The services are ordered in accordance with Medicare regulations or non- Medicare payer requirements, as applicable. In the case of services not specified as inpatient-only, they are appropriately provided as inpatient services in accordance with the 2-midnight benchmark. Estimated LOS (days): 2 days is the estimated time the patient will need to remain in the hospital, assuming treatment plan goals are met and no additional complications. Post-Hospital Plan: Not yet determined Zahra Gilman MD March 17, 2018 22:42
[2018-03-17] MEDS ORDERED: LORazepam 2 MG/ML VIAL IV PUSH PRN ×4 (22:45)
[2018-03-17] MEDS ORDERED: SENNOSIDES 8.6 MG TAB PO PRN (22:45)
[2018-03-17] MEDS ORDERED: ASPIRIN 81 MG CHEW TAB CHEW ONE (22:45)
[2018-03-17] MEDS ORDERED: BISACODYL 10 MG SUPP RECTAL PRN (22:45)
[2018-03-17] MEDS ORDERED: LORazepam 2 MG TAB PO PRN (22:45)
[2018-03-17] MEDS ORDERED: ACETAMINOPHEN/HYDROcodone 325 MG/5 MG TAB PO PRN (22:45)
[2018-03-17] MEDS ORDERED: MAGNESIUM HYDROXIDE SUSP 30 ML CUP PO PRN (22:45)
[2018-03-17] MEDS ORDERED: METOPROLOL TARTRATE 25 MG TAB PO ONE (22:45)
[2018-03-17] MEDS ORDERED: FLUMAZENIL 0.5 MG/5 ML VIAL IV PUSH PRN (22:45)
[2018-03-17] MEDS ORDERED: LORazepam 1 MG TAB PO PRN (22:45)
[2018-03-17] MEDS ORDERED: NITROGLYCERIN 2% OINT 1 GM PACKET TOPICAL ONE (22:45)
[2018-03-17] MEDS ORDERED: LACTULOSE SYRUP 20 GM/30 ML CUP PO PRN (22:45)
[2018-03-17] MEDS ORDERED: MORPHINE SULFATE 4 MG/ML INJ IV PUSH PRN (22:45)
[2018-03-17] MEDS ORDERED: SODIUM CHLORIDE 0.9% FLUSH 10 ML FLUSH IV FLUSH PRN (22:45)
[2018-03-17] MEDS ORDERED: NITROGLYCERIN 2% OINT 1 GM PACKET TOPICAL PRN (22:45)
[2018-03-17] MEDS ORDERED: METOCLOPRAMIDE HCL 10 MG/2 ML VIAL IV PUSH PRN (22:45)
[2018-03-17] MEDS ORDERED: HALOPERIDOL LACTATE 5 MG/ML AMP IM PRN (22:45)
[2018-03-17] MEDS: THIAMINE HCL 100 MG TAB PO SCH (22:58)
[2018-03-17] MEDS: SODIUM CHLOR 0.9% 1000 ML INJ 1,000 ML IV SCH (22:58)
[2018-03-17 23:01] VITALS: BP 114/56; PULSE 77; RESP 18; O2SAT 97
[2018-03-18] VITALS (22 sets, daily range): BP systolic 134–158; BP diastolic 78–98; PULSE 56–80; RESP 20–22; TEMP 97.5–98.7; O2SAT 96–98
[2018-03-18 02:33] LABS: AUTOMATED NEUTROPHIL # 5.9 TH/MM3 (1.8-7.7); BASOPHIL # 0.1 TH/MM3 (0-0.2); BASOPHIL % 0.8 % (0.0-2.0); EOSINOPHIL # 0.2 TH/MM3 (0-0.4); EOSINOPHIL % 2.1 % (0.0-4.0); HEMATOCRIT 38.5 % (39.0-51.0); HEMOGLOBIN 13.5 GM/DL (13.0-17.0); LYMPHOCYTE # 2.5 TH/MM3 (1.0-4.8); MEAN CELL VOLUME 98.5 FL (80.0-100.0); MEAN CORPUSCULAR HEMOGLOBIN 34.6 PG (27.0-34.0); MEAN CORPUSCULAR HGB CONC 35.1 % (32.0-36.0); MEAN PLATELET VOLUME 6.9 FL (7.0-11.0); MONO % 7.6 % (0.0-8.0); MONOCYTE # 0.7 TH/MM3 (0-0.9); NEUT % 62.5 % (16.0-70.0); PLATELET COUNT 250 TH/MM3 (150-450); RED BLOOD COUNT 3.91 MIL/MM3 (4.50-5.90); RED CELL DISTRIBUTION WIDTH 13.2 % (11.6-17.2); WHITE BLOOD COUNT 9.4 TH/MM3 (4.0-11.0)
[2018-03-18 02:57] LABS: ALBUMIN 3.3 GM/DL (3.4-5.0); ALT (GPT) 18 U/L (12-78); AST (GOT) 14 U/L (15-37); BICARBONATE 29.2 MEQ/L (21.0-32.0); BLOOD UREA NITROGEN 10 MG/DL (7-18); CALCIUM 8.2 MG/DL (8.5-10.1); CHLORIDE 98 MEQ/L (98-107); CHOLESTEROL 141 MG/DL (120-200); GLOMERULAR FILTRATION RATE 98 ML/MIN (>89); GLUCOSE,RANDOM 98 MG/DL (74-106); SODIUM (NA) 135 MEQ/L (136-145); TRIGLYCERIDES 108 MG/DL (42-150)
[2018-03-18 03:13] LABS: ALKALINE PHOSPHATASE 59 U/L (45-117); CHOLESTEROL/ HDL RATIO 3.91 RATIO; LDL CHOLESTEROL 83 MG/DL (0-99); TOTAL BILIRUBIN ADULT 0.5 MG/DL (0.2-1.0); TOTAL PROTEIN 6.8 GM/DL (6.4-8.2); TROPONIN I 0.16 NG/ML (0.02-0.05)
[2018-03-18] MEDS: MULTIVITAMINS/MINERALS THERAPEUTIC TAB PO SCH (09:51)
[2018-03-18] MEDS: PRAVASTATIN SOD 40 MG TAB PO SCH (09:51)
[2018-03-18] MEDS: THIAMINE HCL 100 MG TAB PO SCH (09:51)
[2018-03-18] MEDS: DOCUSATE SODIUM 50 MG/SENNA 8.6 MG TAB PO SCH ×2 (09:52→20:03)
[2018-03-18] MEDS: FOLIC ACID 1 MG TAB PO SCH (09:52)
[2018-03-18] MEDS: METOPROLOL TARTRATE 25 MG TAB PO SCH ×2 (09:52→20:03)
[2018-03-18] MEDS: ASPIRIN EC 81 MG TABEC PO SCH (09:52)
[2018-03-18] MEDS: SODIUM CHLORIDE 0.9% FLUSH 10 ML FLUSH IV FLUSH SCH ×2 (09:53→20:04)
[2018-03-18] MEDS: HEPARIN SODIUM - SQ 10,000 UNITS/ML VIAL SQ SCH ×2 (09:53→20:04)
[2018-03-18] MEDS: SODIUM CHLOR 0.9% 1000 ML INJ 1,000 ML IV SCH (09:58)
--- NOTE | 2018-03-18 11:44 | MB ---
cc: Arik Patterson MD DATE: 03/18/2018 REASON FOR CONSULTATION: Abnormal troponin level. HISTORY OF PRESENT ILLNESS: The patient is a 62-year-old white male, followed at the [facility], with a history of asthma, hypertension, COPD, diabetes, schizophrenia, who presented to the Hospital mainly with complaints of "dizziness". For the past few days and in particular yesterday he has been experiencing lightheadedness without syncope or near syncope. Positional changes do not affect the lightheadedness. Today, the lightheadedness has improved overall. Yesterday, he had an episode of chest "cramping" lasting a few minutes, associated with a headache. The chest discomfort was left-sided in location and was not associated with shortness of breath, nausea or diaphoresis. He has, however, noted some increase in baseline dyspnea in the last 2-3 weeks. He denies recent flu symptoms, wheezing, paroxysmal nocturnal dyspnea, pedal edema, palpitations. PAST MEDICAL HISTORY: 1. Asthma. 2. Hypertension. 3. Chronic obstructive pulmonary disease. 4. Diabetes. 5. Gout. 6. Schizophrenia. 7. Possible seizure disorder. 8. Pneumonia August 2017. PAST SURGICAL HISTORY: 1. Tonsillectomy. 2. Left eye surgeries. 3. Tracheostomy 09/27/2007. CARDIAC MEDICATIONS AT HOME: None. ALLERGIES: NO KNOWN DRUG ALLERGIES. FAMILY HISTORY: There is no significant family history of early myocardial infarction. SOCIAL HISTORY: The patient smokes about 1/4 of a pack of cigarettes per day. He drinks 1-2 beers a day. REVIEW OF SYSTEMS: As in history of present illness, otherwise negative or noncontributory. He also denies headache, abdominal pain, melena, dyspepsia, bright red blood per rectum. PHYSICAL EXAMINATION: VITAL SIGNS: His blood pressure 150/83 with a pulse of 70, respirations 20. GENERAL: He is a well-developed, well-nourished white male, in no acute distress. NECK: Jugular venous pressure is normal. Carotid pulses are 2+ bilaterally and without bruits. CHEST: Reveals clear lungs villavicencio. CARDIAC: He has a regular rhythm and rate without S3, S4, or murmur. ABDOMEN: He has a soft, nontender abdomen. Bowel sounds are present. There is no definite hepatosplenomegaly. EXTREMITIES: Reveals no clubbing, cyanosis or edema. LABORATORY DATA: EKG shows normal sinus rhythm, normal EKG. Chest x-ray shows no acute disease. LABORATORY DATA: Includes normal CBC. Potassium 3.4, BUN 10, creatinine 0.80. Troponin 0.16. CK 74. Total cholesterol 141, LDL 83, HDL 36, triglycerides 108. IMPRESSION: Slightly abnormal troponin levels, overall atypical chest pain, lightheadedness in this 62-year-old white male with a history of hypertension, diabetes, COPD, schizophrenia. At this time, he is chest pain free. EKGs are normal. The CK level is negative for myocardial infarction. The etiology of his lightheadedness is not entirely clear. He has been normotensive. No arrhythmias have been seen on monitoring. His sensation of lightheadedness does not appear to be due to vertigo. The patient does have a number of risk factors for coronary disease including hypertension, diabetes, tobacco abuse. RECOMMENDATIONS: 1. Check a Lexiscan nuclear stress test to assess for ischemia. 2. Check a 2-D echo to assess his left ventricular and valvular function. 3. We will followup as needed for any abnormal cardiac testing. Arik Patterson MD [facility]/TL , 11:22 AM , 11:43 AM MTDD
--- NOTE | 2018-03-18 12:03 | ECHRPT ---
Indication: CARDIOMYOPATHY CONCLUSIONS The left ventricular systolic function is normal with an estimated ejection fraction in the range of 55-60%. Normal left ventricular size. Wall thickness is normal. No regional wall motion abnormalities are present. Trace mitral valve regurgitation. There is trace tricuspid valve regurgitation. The estimated pulmonary arterial pressure is 33.4 mmHg. BP: 134 / 78 HR: 96 Rhythm: Sinus MEASUREMENTS (Male / Female) Normal Values Technical Quality:Very technically difficult study 2D ECHO LVOT Diameter 2.0 cm LV Ejection Fraction MOD 4C 60.2 % LV Cardiac Index MOD 4C 2651.2 cm/minm LV Ejection Fraction 4C AL 63.0 % LV Cardiac Index 4C AL 2875.6 cm/minm M-MODE Aortic Root Diameter MM 3.0 cm AV Cusp Separation MM 2.2 cm DOPPLER AV Peak Velocity 128.0 cm/s AV Peak Gradient 6.6 mmHg LVOT Peak Velocity 110.0 cm/s LVOT Peak Gradient 4.8 mmHg AV Area Cont Eq pk 2.7 cm MV Area PHT 2.8 cm Mitral E Point Velocity 80.5 cm/s Mitral A Point Velocity 121.0 cm/s Mitral E to A Ratio 0.7 TR Peak Velocity 242.0 cm/s TR Peak Gradient 23.4 mmHg Right Atrial Pressure 10.0 mmHg Pulmonary Artery Systolic Pressu 33.4 mmHg Right Ventricular Systolic Press 33.4 mmHg PV Peak Velocity 109.0 cm/s PV Peak Gradient 4.8 mmHg FINDINGS LEFT VENTRICLE The left ventricular systolic function is normal with an estimated ejection fraction in the range of 55-60%. Normal left ventricular size. Wall thickness is normal. No regional wall motion abnormalities are present. RIGHT VENTRICLE Normal right ventricular size and systolic function. LEFT ATRIUM The left atrial size is normal. RIGHT ATRIUM The right atrial size is normal. ATRIAL SEPTUM Normal atrial septal thickness without atrial level shunting by limited color doppler interrogation. AORTA The aortic root and proximal ascending aorta are normal in size on limited imaging. MITRAL VALVE Trace mitral valve regurgitation. AORTIC VALVE Trileaflet aortic valve. No aortic valve stenosis or regurgitation. TRICUSPID VALVE Structurally normal tricuspid valve. There is trace tricuspid valve regurgitation. The estimated pulmonary arterial pressure is 33.4 mmHg. PULMONARY VALVE No pulmonary valve regurgitation or stenosis. VESSELS The inferior vena cava is normal in size. PERICARDIUM No pericardial effusion. Ja Scott MD, FACC (Electronically Signed) Final Date:18 Mar 2018 12:02
[2018-03-18] MEDS ORDERED: POTASSIUM CHLORIDE 10 MEQ CONTROLLED RELEASE TAB PO ONE (12:45)
--- NOTE | 2018-03-18 12:47 | HHI.PR ---
Subjective Remarks up in chair- eating- good po, no nausea or vomiting no chest pain now no dizziness states yesterday ahd chest pain left sided with no asociated symptoms "I shook it off" states ambulate aroudn with a rolleraid- chronically david any diarrhea Objective Vitals Vital Signs Date Time Temp Pulse Resp B/P (MAP) Pulse Ox O2 Delivery O2 Flow Rate FiO2 03/18/18 11:00 97.7 72 22 158/91 (113) 97 03/18/18 07:15 97 Room Air 03/18/18 07:00 97.8 70 22 150/83 (105) 97 03/18/18 06:00 63 03/18/18 05:00 67 03/18/18 04:00 64 03/18/18 04:00 98.7 64 20 134/78 (96) 96 03/18/18 03:00 65 03/18/18 02:00 66 03/18/18 01:00 64 03/18/18 00:00 Room Air 03/18/18 00:00 61 03/18/18 00:00 98.6 61 20 147/98 (114) 97 03/17/18 23:21 03/17/18 23:01 77 18 114/56 (75) 97 Room Air 03/17/18 20:07 171/93 (119) 03/17/18 19:37 95 20 195/109 (137) 100 Room Air 03/17/18 18:28 98.1 90 26 205/99 (134) I/O 03/17/18 03/17/18 03/17/18 03/18/18 03/18/18 03/18/18 07:00 15:00 23:00 07:00 15:00 23:00 Intake Total 500 ml 360 ml Output Total 1250 ml Balance 500 ml -890 ml Intake Oral 360 ml IV Total 500 ml Output Urine Total 1250 ml # Bowel Movements 0 Result Diagram: 03/18/1822103/18/18221 Imaging Last Impressions Head CT 03/17/18 0000 Signed Impressions: CONCLUSION: 1. Stable evaluation. 2. No evidence of acute infarct, hemorrhage, mass or edema. Chest X-Ray 03/17/18 0000 Signed Impressions: CONCLUSION: No evidence of acute process. Objective Remarks awake and alert, no acute distress anicteroic lungs- no rales regular rhythm abdomen soft, nontender extremities- no edmea, good peripheral pulses A/P Problem List: (1) Dizziness ICD Code: R42 - Dizziness and giddiness (2) Elevated troponin ICD Code: R74.8 - Abnormal levels of other serum enzymes (3) Hyponatremia ICD Code: E87.1 - Hypo-osmolality and hyponatremia (4) Leukocytosis ICD Code: D72.829 - Elevated white blood cell count, unspecified (5) HTN (hypertension) ICD Code: I10 - Essential (primary) hypertension (6) Tobacco abuse ICD Code: Z72.0 - Tobacco use (7) Alcohol abuse ICD Code: F10.10 - Alcohol abuse, uncomplicated Status: Chronic Assessment and Plan 62 years old malle Dizziness: acute onset of dizziness- resolved w/ near syncopal event, likely secondary to underlying ischemia. CT Head w/ no acute findings, images reviewed by me. Check Echo for valvular abnormality. Telemetry. IVF for hydration.= decrease rate. good po Atypical chest pain - Elevated Trop: Trop 0.16, no acute EKG changes, no c/o chest pain only "cramping". HTN: Uncontrolled. BP 205/99, HR 90 on arrival, Metoprolol PO, monitor BP, antihypertensives as needed for BP >180 states history of hypertesnion in the past - was on meds but was DC Clonidine prn states occasional leg swelling ASA, Statin, Metoprolol, NTG/Morphine prn. cardiology consulted . Echo ordered for Lexiscan Leukocytosis: WBC 12.6, no signs of infection. LIkely reactive CXR w/ no acute findings, U/a negative for UTI. Likely reactive. ff Hyponatremia: Na 128, dehydration/alcohol abuse, decrease IVF rate to 42/hr chekc TSH. patitn states occasional leg swelling- now no edema Hypokalemia- replace po. recheck in am Alcohol Abuse: Drinks daily but 4-5 beers. denies hhsitory of DTs. CIWA, Seizure Precautions, MVT/Thiamine/Folate replacement. Tobacco Abuse: Pt counselled. Ativan prn. No NicoDerm to avoid further vasoconstriction. DVT Prophylaxis: Heparin sq Social work for DC planning as needed. d/w patient Jordan Stanley MD March 18, 2018 12:47
--- NOTE | 2018-03-18 13:30 | EKG ---
Date Performed: 03/18/2018 Time Performed: 09:00:32 PTAGE: 62 years EKG: Sinus rhythm Low QRS voltages in precordial leads Borderline ECG Since PREVIOUS TRACING , no significant change noted PREVIOUS TRACIN03/17/2018 20.01 DOCTOR: Sai Guerra Interpretating Date/Time 03/18/2018 13:30:05
[2018-03-18] MEDS: BUDESONIDE-FORMOTEROL 160/4.5 MCG INHALER INH SCH ×2 (15:57→20:03)
[2018-03-19] VITALS (28 sets, daily range): BP systolic 137–156; BP diastolic 82–91; PULSE 56–82; RESP 16–24; TEMP 97–98.4; O2SAT 96–100
[2018-03-19] MEDS: SODIUM CHLOR 0.9% 1000 ML INJ 1,000 ML IV SCH ×2 (02:51→21:12)
[2018-03-19 05:51] LABS: BICARBONATE 26.5 MEQ/L (21.0-32.0); CALCIUM 9.1 MG/DL (8.5-10.1); CREATININE 0.75 MG/DL (0.60-1.30)
[2018-03-19] MEDS: SODIUM CHLORIDE 0.9% FLUSH 10 ML FLUSH IV FLUSH SCH ×2 (09:00→20:21)
[2018-03-19] MEDS: BUDESONIDE-FORMOTEROL 160/4.5 MCG INHALER INH SCH ×2 (09:00→21:45)
[2018-03-19] MEDS: DOCUSATE SODIUM 50 MG/SENNA 8.6 MG TAB PO SCH ×2 (09:05→20:20)
[2018-03-19] MEDS: THIAMINE HCL 100 MG TAB PO SCH (09:06)
[2018-03-19] MEDS: PRAVASTATIN SOD 40 MG TAB PO SCH (09:07)
[2018-03-19] MEDS: HEPARIN SODIUM - SQ 10,000 UNITS/ML VIAL SQ SCH ×2 (09:07→20:20)
[2018-03-19] MEDS: MULTIVITAMINS/MINERALS THERAPEUTIC TAB PO SCH (09:07)
[2018-03-19] MEDS: ASPIRIN EC 81 MG TABEC PO SCH (09:07)
[2018-03-19] MEDS: FOLIC ACID 1 MG TAB PO SCH (09:07)
[2018-03-19] MEDS: METOPROLOL TARTRATE 25 MG TAB PO SCH ×2 (09:07→20:20)
[2018-03-19] MEDS ORDERED: REGADENOSON INJ 0.4 MG/5 ML SYR ONE (09:37)
--- NOTE | 2018-03-19 11:09 | HHI.PR ---
Subjective Remarks back from stress testing no chest pain or discomfort voiding well, no abdominal pain telemetry- sinus Objective Vitals Vital Signs Date Time Temp Pulse Resp B/P (MAP) Pulse Ox O2 Delivery O2 Flow Rate FiO2 03/19/18 08:00 97.0 82 20 156/83 (107) 98 03/19/18 06:00 71 03/19/18 05:00 70 03/19/18 04:00 72 03/19/18 03:43 Room Air 03/19/18 03:43 98.4 66 18 138/91 (107) 96 03/19/18 03:00 69 03/19/18 02:00 66 03/19/18 01:00 65 03/19/18 00:00 60 03/19/18 00:00 Room Air 03/19/18 00:00 98.1 60 18 137/89 (105) 97 03/18/18 23:00 63 03/18/18 22:00 66 03/18/18 21:00 69 03/18/18 20:00 Room Air 03/18/18 20:00 98.3 66 20 137/79 (98) 98 03/18/18 20:00 66 03/18/18 18:00 74 03/18/18 17:00 56 03/18/18 16:00 58 03/18/18 15:00 97.5 64 20 150/78 (102) 98 03/18/18 15:00 58 03/18/18 13:00 60 03/18/18 12:00 64 I/O 03/18/18 03/18/18 03/18/18 03/19/18 03/19/18 03/19/18 06:59 14:59 22:59 06:59 14:59 22:59 Intake Total 360 ml 800 ml 240 ml Output Total 1250 ml 1380 ml 1300 ml Balance -890 ml -580 ml -1060 ml Intake Oral 360 ml 800 ml 240 ml Output Urine Total 1250 ml 1380 ml 1300 ml # Bowel Movements 0 1 Result Diagram: 03/18/18 0222 03/19/18 0355 Imaging Last Impressions Head CT 03/17/18 0000 Signed Impressions: CONCLUSION: 1. Stable evaluation. 2. No evidence of acute infarct, hemorrhage, mass or edema. Chest X-Ray 03/17/18 0000 Signed Impressions: CONCLUSION: No evidence of acute process. Objective Remarks awake and alert, no acute distress anictero\\ic lungs- no rales regular rhythm abdomen soft, nontender extremities- no edema, good peripheral pulses A/P Problem List: (1) Dizziness ICD Code: R42 - Dizziness and giddiness (2) Elevated troponin ICD Code: R74.8 - Abnormal levels of other serum enzymes (3) Hyponatremia ICD Code: E87.1 - Hypo-osmolality and hyponatremia (4) Leukocytosis ICD Code: D72.829 - Elevated white blood cell count, unspecified (5) HTN (hypertension) ICD Code: I10 - Essential (primary) hypertension Status: Chronic (6) Tobacco abuse ICD Code: Z72.0 - Tobacco use (7) Alcohol abuse ICD Code: F10.10 - Alcohol abuse, uncomplicated Status: Chronic Assessment and Plan 62 years old malle Dizziness: acute onset of dizziness- resolved w/ near syncopal event, likely secondary to underlying ischemia. CT Head w/ no acute findings, images reviewed by me. Check Echo for valvular abnormality. Telemetry. IVF for hydration.= decrease rate. good po Atypical chest pain - Elevated Trop: Trop 0.16, no acute EKG changes, no c/o chest pain only "cramping". HTN: Uncontrolled. BP 205/99, HR 90 on arrival, Metoprolol PO, monitor BP, antihypertensives as needed for BP >180 states history of hypertesnion in the past - was on meds but was DC Echo unremarkable- EF 55-60% ASA, Statin, Metoprolol, NTG/Morphine prn. Add amlodipine 2.5 mg po daily ongoing myocardial perfusion study- if negative- DC home, if + will need cath Dr. Patterson ff Leukocytosis: WBC 12.6, no signs of infection. LIkely reactive CXR w/ no acute findings, U/a negative for UTI. Likely reactive. ff Hyponatremia: Na 128, dehydration/alcohol abuse, resolved TSH normal Hypokalemia- - Improved Alcohol Abuse: Drinks daily but 4-5 beers. denies hhsitory of DTs. CIWA, Seizure Precautions, MVT/Thiamine/Folate replacement. Tobacco Abuse: Pt counselled. Ativan prn. No NicoDerm to avoid further vasoconstriction. DVT Prophylaxis: Heparin sq Social work for DC planning as needed. PT consult today if mno need for further cardiac work up if negative - DC today d/w patient Problem Qualifiers (1) HTN (hypertension): Qualified Codes: I10 - Essential (primary) hypertension Jordan Stanley MD March 19, 2018 11:09
--- NOTE | 2018-03-19 11:10 | RADRPT ---
EXAM DATE: 03/19/2018 10:50 AM EDT AGE/SEX: 62 years / Male INDICATIONS:Angina. . Lightheadedness. Chest cramping and headache. CLINICAL DATA: This is the patient's initial encounter. Patient reports that signs and symptoms have been present for 1 day and indicates a pain score of 1/10. MEDICAL/SURGICAL HISTORY: Diabetes mellitus type II. Chronic obstructive pulmonary disease. H ypertension. Smoker. Tonsillectomy. COMPARISON: No prior [facility] exams available for comparison. DOSE: 31.3 mCi Tc 99m Myoview at stress 32.4 mCi [id number] at rest 0.4 mg Lexiscan STRESS SYMPTOMS: Dyspnea. EJECTION FRACTION: 66 % TECHNIQUE: The patient underwent pharmacologic stress with infusion of prescribed dose. Continuous ECG tracing was monitored during stress. Gated SPECT imaging was performed after stress and conventi onal SPECT imaging was performed at rest. The examination was performed on a SPECT/CT scanner, both attenuation and non-corrected datasets were reviewed. FINDINGS: Distribution: The maximum perfused segment at stress is in the wall. Perfusion Study: There is moderate area of mild reversibility involving the lateral and inferior wa lls mid myocardium. Gated Study: There are intact wall motion and wall thickening without hypokinetic or dyskinetic segm ents. The ejection fraction is calculated at 66%. RISK CATEGORY: Intermediate (1-3 % Annual Mortality Rate) CONCLUSION: 1. Moderate area of mild reversibility involving the lateral and inferior gates concerning for ische constantino. 2. Normal ejection fraction. Electronically signed by: Danny Perales MD 03/19/2018 11:09 AM EDT
[2018-03-19] MEDS ORDERED: amLODIPine BESYLATE 5 MG TAB PO SCH (11:15)
[2018-03-19] MEDS ORDERED: PILL SPLITTER OTHER PRN (11:30)
--- NOTE | 2018-03-19 12:32 | PD.CARD.PN ---
Subjective Subjective Remarks Denies dyspnea. Lightheadedness considerably improved. No palpitations, PND, near syncope. No CP today. Objective Medications Item Value Date Time Amlodipine 2.5 mg 03/19/18 1115 Besylate DAILY/PO (Norvasc) Heparin Sodium 5,000 units 03/18/18 0900 (Porcine) Q12H/SQ 03/19/18 09 (Heparin Inj) Aspirin 81 mg 03/18/18 0900 (Ecotrin Ec) DAILY/PO 03/19/18 09 Metoprolol 25 mg 03/18/18 09 Tartrate Q12HR/PO 03/19/18 09 (Lopressor) Pravastatin Sodium 40 mg 03/18/18 09 (Pravachol) DAILY/PO 03/19/18906 Nitroglycerin 0.5 inch 03/17/18 2245 (Nitroglycerin Q6HR PRN/TOPICAL 2% Oint) Current Medications Medications (Trade) Dose Ordered Sig/Mandy Route Start Time Stop Time Status Last Admin (Folate) 1 mg DAILY PO 03/18/18 09:00 03/23/18 08:59 03/19/18 09:07 (Vitamin B1) 100 mg DAILY PO 03/17/18 22:45 03/19/18 09:06 (Theragran M Tab) 1 tab DAILY PO 03/18/18 09:00 03/23/18 08:59 03/19/18 09:07 (Romazicon Inj) 0.2 mg Q1M PRN IV PUSH 03/17/18 22:45 (Ativan) 1 mg Q4H PRN PO 03/17/18 22:45 (Ativan Inj) 1 mg Q4H PRN IV PUSH 03/17/18 22:45 (Ativan) 2 mg Q2H PRN PO 03/17/18 22:45 03/18/18 20:03 (Ativan Inj) 2 mg Q2H PRN IV PUSH 03/17/18 22:45 (Ativan Inj) 2 mg Q1H PRN IV PUSH 03/17/18 22:45 (Ativan Inj) 2 mg Q15M PRN IV PUSH 03/17/18 22:45 (Haldol Inj) 2 mg Q15M PRN IM 03/17/18 22:45 (NS Flush) 2 ml UNSCH PRN IV FLUSH 03/17/18 22:45 (NS Flush) 2 ml BID IV FLUSH 03/18/18 09:00 03/19/18 09:00 (Reglan Inj) 5 mg Q6H PRN IV PUSH 03/17/18 22:45 (Heparin Inj) 5,000 units Q12H SQ 03/18/18 09:00 03/19/18 09:07 (Tylenol) 650 mg Q6H PRN PO 03/17/18 22:45 ([place] 5-325 Mg) 1 tab Q4H PRN PO 03/17/18 22:45 (Morphine Inj) 2 mg Q3H PRN IV PUSH 03/17/18 22:45 (Martha-Colace) 1 tab BID PO 03/18/18 09:00 03/19/18 09:05 (Milk Of Magnesia Liq) 30 ml Q12H PRN PO 03/17/18 22:45 (Senokot) 17.2 mg Q12H PRN PO 03/17/18 22:45 (Dulcolax Supp) 10 mg DAILY PRN RECTAL 03/17/18 22:45 (Lactulose Liq) 30 ml DAILY PRN PO 03/17/18 22:45 (Nitroglycerin 2% Oint) 0.5 inch Q6HR PRN TOPICAL 03/17/18 22:45 (Ecotrin Ec) 81 mg DAILY PO 03/18/18 09:00 03/19/18 09:07 (Lopressor) 25 mg Q12HR PO 03/18/18 09:00 03/19/18 09:07 (Pravachol) 40 mg DAILY PO 03/18/18 09:00 03/19/18 09:07 (Symbicort 160-4.5 Mcg Inh) 2 puff Q12HR INH 03/18/18 09:00 03/19/18 09:00 (Norvasc) 2.5 mg DAILY PO 03/19/18 11:15 (Pill Splitter) 1 ea UNSCH PRN OTHER 03/19/18 11:30 Vital Signs / I&O Vital Signs Date Time Temp Pulse Resp B/P (MAP) Pulse Ox O2 Delivery O2 Flow Rate FiO2 03/19/18 08:00 97.0 82 20 156/83 (107) 98 03/19/18 06:00 71 03/19/18 05:00 70 5/28/18 04:00 72 03/19/18 03:43 Room Air 03/19/18 03:43 98.4 66 18 138/91 (107) 96 03/19/18 03:00 69 03/19/18 02:00 66 03/19/18 01:00 65 03/19/18 00:00 60 03/19/18 00:00 Room Air 03/19/18 00:00 98.1 60 18 137/89 (105) 97 03/18/18 23:00 63 03/18/18 22:00 66 03/18/18 21:00 69 03/18/18 20:00 Room Air 03/18/18 20:00 98.3 66 20 137/79 (98) 98 03/18/18 20:00 66 03/18/18 18:00 74 03/18/18 17:00 56 03/18/18 16:00 58 03/18/18 15:00 97.5 64 20 150/78 (102) 98 03/18/18 15:00 58 03/18/18 13:00 60 I/O 03/18/18 03/18/18 03/18/18 03/19/18 03/19/18 03/19/18 07:00 15:00 23:00 07:00 15:00 23:00 Intake Total 360 ml 800 ml 240 ml Output Total 1250 ml 1380 ml 1300 ml Balance -890 ml -580 ml -1060 ml Intake Oral 360 ml 800 ml 240 ml Output Urine Total 1250 ml 1380 ml 1300 ml # Bowel Movements 0 1 Physical Exam GENERAL: Well developed, well nourished. No acute distress. HEENT: Jugular venous pressure is normal. CHEST: Lungs clear to auscultation bilaterally. Unlabored respiratory effort. CARDIAC: Regular rate and rhythm without S3, S4, or murmur. ABDOMEN: Soft, nontender, no hepatosplenomegaly. Bowel sounds present. EXTREMITIES: No clubbing, cyanosis, or edema. Laboratory Laboratory Tests Test 03/19/18 03:55 Blood Urea Nitrogen 13 MG/DL Creatinine 0.75 MG/DL Random Glucose 93 MG/DL Calcium Level 9.1 MG/DL Sodium Level 137 MEQ/L Potassium Level 4.3 MEQ/L Chloride Level 102 MEQ/L Carbon Dioxide Level 26.5 MEQ/L Anion Gap 9 MEQ/L Estimat Glomerular Filtration Rate 106 ML/MIN Thyroid Stimulating Hormone 3rd Gen 3.300 uIU/ML Imaging Last 48 hours Impressions Myocardial Perfusion Scan Nuc Med 03/18/18 0000 Signed Impressions: CONCLUSION: 1. Moderate area of mild reversibility involving the lateral and inferior wall s concerning for ischemia. 2. Normal ejection fraction. Assessment and Plan Problem List: (1) Chest pain ICD Codes: R07.9 - Chest pain, unspecified Status: Acute Plan: No further atypical CP. Nuclear stress test images reviewed, agree with interpretation. There is a substantial amount of both inferior and lateral ischemia, suggesting at least 2 vessel CAD. REC in light of his multiple risks for CAD, abnormal nuclear stress test, abnormal troponin levels, rec cath tomorrow continue beta kulwant, aspirin, amlodipine (2) Dizziness ICD Codes: R42 - Dizziness and giddiness Status: Acute Plan: Dizziness improved. No arrhythmias evident. (3) HTN (hypertension) ICD Codes: I10 - Essential (primary) hypertension Status: Chronic Plan: Fluctuating BP's. Recommend increase amlodipine. Code Status full code Discussed Condition With patient Problem Qualifiers (1) Chest pain: Qualified Codes: R07.9 - Chest pain, unspecified (2) HTN (hypertension): Qualified Codes: I10 - Essential (primary) hypertension Arik Patterson MD March 19, 2018 12:32
[2018-03-19] MEDS ORDERED: DIAZEPAM 10 MG TAB PO SCH (12:45)
[2018-03-19] MEDS ORDERED: MIDAZOLAM HCL 2 MG/2 ML VIAL IV PUSH SCH (12:45)
[2018-03-19] MEDS ORDERED: diphenhydrAMINE HCL 50 MG CAP PO SCH (12:45)
[2018-03-20] VITALS (27 sets, daily range): BP systolic 113–148; BP diastolic 66–91; PULSE 54–81; RESP 18–20; TEMP 97.4–98.1; O2SAT 97–100
[2018-03-20] MEDS: SODIUM CHLOR 0.9% 1000 ML INJ 1,000 ML IV SCH ×2 (06:31→19:00)
[2018-03-20] MEDS ORDERED: HEPARIN-NS/PF INJ 1,500 ML ONE (08:40)
[2018-03-20] MEDS ORDERED: NITROGLYCERIN INJ 5 ML ONE (08:40)
[2018-03-20] MEDS ORDERED: MIDAZOLAM HCL 2 MG/2 ML VIAL ONE (08:40)
[2018-03-20] MEDS ORDERED: VERAPAMIL HCL 5 MG/2 ML VIAL ONE (08:40)
[2018-03-20] MEDS ORDERED: HEPARIN SODIUM - IV 10,000 UNITS/10 ML VIAL ONE (08:40)
[2018-03-20] MEDS: HEPARIN SODIUM - SQ 10,000 UNITS/ML VIAL SQ SCH (09:00)
[2018-03-20] MEDS: THIAMINE HCL 100 MG TAB PO SCH (09:00)
[2018-03-20] MEDS: SODIUM CHLORIDE 0.9% FLUSH 10 ML FLUSH IV FLUSH SCH ×2 (09:00→21:00)
[2018-03-20] MEDS: DOCUSATE SODIUM 50 MG/SENNA 8.6 MG TAB PO SCH ×2 (09:00→20:57)
[2018-03-20] MEDS ORDERED: TIROFIBAN INFUSION INJ 250 ML IV ONE (09:18)
[2018-03-20] MEDS ORDERED: CLOPIDOGREL 300 MG TAB ONE (09:32)
[2018-03-20] MEDS ORDERED: SODIUM CHLOR 0.9% 1000 ML INJ 1,000 ML IV SCH (09:50)
--- NOTE | 2018-03-20 09:50 | PD.CARD.PN ---
Subjective Subjective Remarks Denies dyspnea, CP. No palpitations, PND, near syncope. Objective Medications Item Value Date Time Amlodipine 5 mg 03/20/18 09 Besylate DAILY/PO (Norvasc) Heparin Sodium 5,000 units 03/18/18 09 (Porcine) Q12H/SQ 03/19/182019 (Heparin Inj) Aspirin 81 mg 03/18/18 09 (Ecotrin Ec) DAILY/PO 03/19/18906 Metoprolol 25 mg 03/18/18899 Tartrate Q12HR/PO 03/19/182019 (Lopressor) Pravastatin Sodium 40 mg 03/18/18899 (Pravachol) DAILY/PO 03/19/18906 Nitroglycerin 0.5 inch 03/17/182244 (Nitroglycerin Q6HR PRN/TOPICAL 2% Oint) Current Medications Medications (Trade) Dose Ordered Sig/Mandy Route Start Time Stop Time Status Last Admin (Folate) 1 mg DAILY PO 03/18/18 09:00 03/23/18 08:59 03/19/18 09:07 (Vitamin B1) 100 mg DAILY PO 03/17/18 22:45 03/19/18 09:06 (Theragran M Tab) 1 tab DAILY PO 03/18/18 09:00 03/23/18 08:59 03/19/18 09:07 (Romazicon Inj) 0.2 mg Q1M PRN IV PUSH 03/17/18 22:45 (Ativan) 1 mg Q4H PRN PO 03/17/18 22:45 (Ativan Inj) 1 mg Q4H PRN IV PUSH 03/17/18 22:45 (Ativan) 2 mg Q2H PRN PO 03/17/18 22:45 03/18/18 20:03 (Ativan Inj) 2 mg Q2H PRN IV PUSH 03/17/18 22:45 (Ativan Inj) 2 mg Q1H PRN IV PUSH 03/17/18 22:45 (Ativan Inj) 2 mg Q15M PRN IV PUSH 03/17/18 22:45 (Haldol Inj) 2 mg Q15M PRN IM 03/17/18 22:45 (NS Flush) 2 ml UNSCH PRN IV FLUSH 03/17/18 22:45 (NS Flush) 2 ml BID IV FLUSH 03/18/18 09:00 03/19/18 20:21 (Reglan Inj) 5 mg Q6H PRN IV PUSH 03/17/18 22:45 (Heparin Inj) 5,000 units Q12H SQ 03/18/18 09:00 03/19/18 20:20 (Tylenol) 650 mg Q6H PRN PO 03/17/18 22:45 ([place] 5-325 Mg) 1 tab Q4H PRN PO 03/17/18 22:45 (Morphine Inj) 2 mg Q3H PRN IV PUSH 03/17/18 22:45 (Martha-Colace) 1 tab BID PO 03/18/18 09:00 03/19/18 20:20 (Milk Of Magnesia Liq) 30 ml Q12H PRN PO 03/17/18 22:45 (Senokot) 17.2 mg Q12H PRN PO 03/17/18 22:45 (Dulcolax Supp) 10 mg DAILY PRN RECTAL 03/17/18 22:45 (Lactulose Liq) 30 ml DAILY PRN PO 03/17/18 22:45 (Nitroglycerin 2% Oint) 0.5 inch Q6HR PRN TOPICAL 03/17/18 22:45 (Ecotrin Ec) 81 mg DAILY PO 03/18/18 09:00 03/19/18 09:07 (Lopressor) 25 mg Q12HR PO 03/18/18 09:00 03/19/18 20:20 (Pravachol) 40 mg DAILY PO 03/18/18 09:00 03/19/18 09:07 (Symbicort 160-4.5 Mcg Inh) 2 puff Q12HR INH 03/18/18 09:00 03/19/18 21:45 (Pill Splitter) 1 ea UNSCH PRN OTHER 03/19/18 11:30 (Norvasc) 5 mg DAILY PO 03/20/18 09:00 Sodium Chloride 1,000 ml @ 100 mls/hr Q10H IV 03/19/18 13:00 03/24/18 12:59 03/20/18 06:31 (Benadryl) 50 mg [employer] PO 03/19/18 12:45 03/23/18 12:44 (Valium) 10 mg [employer] PO 03/19/18 12:45 03/23/18 12:44 (Versed Inj) 1 mg [employer] IV PUSH 03/19/18 12:45 03/23/18 12:44 Vital Signs / I&O Vital Signs Date Time Temp Pulse Resp B/P (MAP) Pulse Ox O2 Delivery O2 Flow Rate FiO2 03/20/18 07:15 97.4 81 20 148/91 (110) 98 03/20/18 07:00 98 Room Air 03/20/18 07:00 69 03/20/18 06:00 61 03/20/18 05:00 64 03/20/18 04:00 70 03/20/18 03:36 97.5 70 20 139/87 (104) 97 03/20/18 03:00 56 03/20/18 02:00 58 03/20/18 01:00 56 03/20/18 00:00 62 03/19/18 23:48 97.7 65 24 142/82 (102) 100 03/19/18 23:00 59 03/19/18 22:00 56 03/19/18 21:00 68 03/19/18 20:06 Room Air 03/19/18 20:06 97.7 69 20 145/91 (109) 99 03/19/18 20:00 60 03/19/18 19:00 66 03/19/18 18:00 70 03/19/18 17:00 74 03/19/18 16:00 70 03/19/18 15:06 98.0 73 16 151/91 (111) 98 03/19/18 15:00 72 03/19/18 14:00 78 03/19/18 13:00 60 03/19/18 12:00 56 03/19/18 11:00 61 03/19/18 11:00 98.0 82 18 144/82 (102) 03/19/18 10:00 71 I/O 03/19/18 03/19/18 03/19/18 03/20/18 03/20/18 03/20/18 07:00 15:00 23:00 07:00 15:00 23:00 Intake Total 240 ml 800 ml 920 ml Output Total 1300 ml 1000 ml 2975 ml Balance -1060 ml -200 ml -2055 ml Intake Oral 240 ml 800 ml 920 ml Output Urine Total 1300 ml 1000 ml 2975 ml # Bowel Movements 1 Physical Exam GENERAL: Well developed, well nourished. No acute distress. HEENT: Jugular venous pressure is normal. CHEST: Lungs clear to auscultation anteriorly. CARDIAC: Regular rate and rhythm without S3, S4, or murmur. ABDOMEN: Soft, nontender, no hepatosplenomegaly. Bowel sounds present. EXTREMITIES: No clubbing, cyanosis, or edema. Assessment and Plan Problem List: (1) CAD (coronary artery disease) ICD Codes: I25.10 - Atherosclerotic heart disease of [place] coronary artery without angina pectoris Status: Chronic Plan: Clinically stable. Cath today shows high grade CAD in the proximal LAD, stented without difficulty. EF 65% by cath and echo. REC overnight observation Plavix, aspirin, beta kulwant (2) Dizziness ICD Codes: R42 - Dizziness and giddiness Status: Acute Plan: Dizziness improved overall. No arrhythmias evident. (3) HTN (hypertension) ICD Codes: I10 - Essential (primary) hypertension Status: Chronic Plan: Fluctuating BP's. BP in slab puller 100/60. Continue amlodipine, metoprolol. Code Status full code Discussed Condition With patient Problem Qualifiers (1) CAD (coronary artery disease): Qualified Codes: I25.110 - Atherosclerotic heart disease of [place] coronary artery with unstable angina pectoris (2) HTN (hypertension): Qualified Codes: I10 - Essential (primary) hypertension Arik Patterson MD March 20, 2018 09:50
--- NOTE | 2018-03-20 09:59 | CATHPROC ---
[employer] HIS Report Study Information Study Number Admission Scheduled Start Study Start [id number] Mar 17 2018 10:40PM 03/19/2018 Mar 20 2018 8:19AM [place] [facility] Cardiac Catheterization Admit Source Facility Department Emergency department [facility] - [employer] Physician and Clinical Staff Initial Arik Crawford Fur Stylist Lazaro RN, Elsa Warner,RT(R) Scrub Catie Cristobal,RT(R) (BS) Procedures Performed Procedure Location (Site) Vessel Name Coronary Angiograms LCA Left Coronary Coronary Angiograms RCA Right Coronary Drug Eluting Inflatio LAD Prox Left Coronary L Heart Cath LV Gram-hand inj. LV LV Ventricle Wire insertion Radial (right) Radial Art. Equipment Time Director Economic Description Size Mfg Part Number Used/Scraped [id number] 09:17 [employer] WIRE, ASAG[employer]obalLogic PROWATER 180CM 180CM Used *[id number] TRANSDUCER, TRUWAVE [id number] 08:19 CRAIN ADAMES * Used W/STOCKCOCK *[id number] *[id number] *[id number] 188561 08:19 MALLINCKRODT SYRINGE, ANGIOMAT 150ML 150ML *[id number] Used 2SUB MEDICAL CONCEPT DRAPE, RADIAL FEMORAL FULL 08:19 * [id number] *[id number] Used DEVELOPMENT BODY [id number] 08:19 [employer] PACK, CCL CUSTOM * Used *[id number] 08:19 [employer] SUPPORT, ARTERIAL ADULT [id number] *[id number] Used [id number] 08:19 THUBIT PACER PEN, SKIN DUAL W/ RULER * Used *[id number] 09:29 [employer] STENT, 2.5 15MM GALI 2.5 15MM Used *[id number] 09:30 [employer] 30 TREASURE INDEFLATOR Used *[id number] BAND, RADIAL COMPRESSION TR [id number] 09:34 [employer] 29CM Used LARGE 29 *[id number] SHEATH, FR6 RADIAL PRELUDE 08:19 [employer] FR 6 [id number] Used EASE 11CM [id number] 08:19 [employer] WIRE, EXCHANGE 260CM 3MMJ 260CM Used *[id number] 08:19 NAMIC MANIFOLD, 4 PORT * Used *[id number] 08:19 [employer] OMNIPAQUE, 350 MG, 150ML 150ML [id number] Used [id number] 08:19 [employer],WARM AIR CCL * Used *[id number] CATHETER, FR5 OPTITORQUE [id number] 09:05 [employer] FR 5 Used RADIAL TIG 4.0 *[id number] Equipment Model, Serial, Lot Number and Expiration Data Description Model Number Serial Number Lot Number Expiration Date STENT, 2.5 15MM GALI [id number] 11-08-2019 History: Current Medications Medication Dosage/Unit Route Frequency Last Date/Time Taken NORVASC LOPRESSOR History: Risk Factors Family History of Hypertension Dyslipidemia Previous CA Previous Heart Failure Premature CAD Yes Yes No No No Prior Valve Prior PCI Prior CABG Surgery No No No Cerebrovascular Peripheral Artery Chronic Lung On Dialysis Diabetes Disease Disease Disease No No No Yes Yes History: Symptoms/Diagnosis Selection Items Syncope History: Stress Tests Stress or Imaging Studies Performed Yes Standard Exercise Stress Test No Stress Echo No Stress Test SPECT Stress Test SPECT Result Stress Test SPECT Ischemia Risk/Extent Yes Positive High Stress Test CMR No Cardiac CTA Coronary Calcium Score No No History: Other Disease Selection Items COPD HTN History: Other Current Smoker Method Packs a Day Years Used Pack Years Yes Cigarettes 1 30 30 Labs Hgb (g/dl) Hct (%) WBC (l/cumm) Platelets (thousands) 11.60-17.00 35.00-51.00 4.00-11.00 150.00-450.00 13.0 38 9.4 250 Glucose (mg/dl) 74.00-106.00 93 Na (meq/l) K (meq/l) 136.00-145.00 3.50-5.10 137 4.3 INR (PTT:PT) 0.90-1.10 1.1 Troponin I (ng/ml) CPK (u/l) CPK-MB (ng/ML) 0.02-0.05 26.00-308.00 0.50-3.60 0.12 74 Not Drawn Medication Medication Total Dose (Bolus/Oral) Medication Total Dosage/Unit 1% XYLOCAINE 5 mL AGGRASTAT BOLUS 58 mL FENTANYL 50 mcg HEPARIN 5000 units NTG (IC) 100 mcg OXYGEN 2 l/min PLAVIX 600 mg RADIAL COCKTAIL 5 mL (Bolus) VERSED 2 mg Medications (Bolus/Oral) Medication Time Given Dosage/Unit Administered By Reason OXYGEN 03/20/2018 8:52:46 AM 2 l/min Willy Willis RN 2 l/min OXYGEN given in lab by Willy Willis RN via Nasal. 1% XYLOCAINE 03/20/2018 9:05:18 AM 5 mL Arik Patterson 5 mL 1% XYLOCAINE given in lab by Arik Patterson in Right Radial via Subcutaneous. VERSED 03/20/2018 9:05:50 AM 2 mg Willy Willis RN 2 mg VERSED given in lab by Willy Willis RN in Left Antecubital via Peripheral IV. Ordered by Arik Patterson. FENTANYL 03/20/2018 9:06:22 AM 50 mcg Willy Willis RN 50 mcg FENTANYL given in lab by Willy Willis RN in Left Antecubital via Peripheral IV. Ordered by Arik Haq. Ntg 200mcg Verapamil 2.5mg Heparin RADIAL COCKTAIL 03/20/2018 9:07:21 AM 5 mL (Bolus) Arik Patterson 2500U 5 mL (Bolus) RADIAL COCKTAIL given in lab by Arik Patterson in Right Radial via Radial. Using [Solution Name]. Reason: Ntg 200mcg Verapamil 2.5mg Heparin 2500U. HEPARIN 03/20/2018 9:17:38 AM 5000 units Willy Willis RN 5000 units HEPARIN given in lab by Willy Willis RN in Left Antecubital via Peripheral IV. Ordered by Arik Patterson. AGGRASTAT BOLUS 03/20/2018 9:20:28 AM 58 mL Willy Willis RN 58 mL AGGRASTAT BOLUS given in lab by Willy Willis RN in Left Antecubital via Peripheral IV. Ordered by Arik Patterson. NTG (IC) 03/20/2018 9:27:34 AM 50 mcg Arik Patterson 50 mcg NTG (IC) given in lab by Arik Patterson in Right Radial via Intra-coronary. NTG (IC) 03/20/2018 9:31:23 AM 50 mcg Arik Patterson 50 mcg NTG (IC) given in lab by Arik Patterson in Right Radial via Intra-coronary. PLAVIX 03/20/2018 9:35:19 AM 600 mg Willy Willis RN 600 mg PLAVIX given in lab by Willy Willis RN via Oral. Ordered by Arik Patterson. Medication (Drip) Medication Time Given Dosage/Unit Concentration/Unit Diluent (ml) Solutio n AGGRASTAT DRIP 03/20/2018 9:26:09 AM 0.146 mcg/kg/min 12.5 mg 250 NaCl .9 0.146 mcg/kg/min AGGRASTAT DRIP given in lab by Willy Willis RN in Left Antecubital via Peripheral IV . Pump/Drip Flow = 21.6 ml/hr using NaCl .9 with a concentration of 12.5 mg in 250 ml. Ordered by Arik Patterson. IV Solutions 03/20/2018 8:38:46 AM 50 mL (IV) NaCl .9 IV Solutions given in lab by Willy Willis RN in Left Antecubital via Peripheral IV. Pump/Drip Flow us ing NaCl .9. Initial Case Assessment Cardiovascular HR Rhythm NIBP Chest Pain 66 SR 133/57 0 Edema Present Skin color Skin Mild Normal Warm Dry Neurological State Oriented to time-place- Alert Moves all extremities person Chronological Log Time Study Chronological Log 8:38:26 Patient arrived via Bed. 8:38:27 Patient Name, D.O.B, / Armband Verified By R.N. 8:38:27 Consent signed by the physician and the patient and verified by the Licensed [employer] staff. 8:38:28 Pre-op and post- op instructions given; patient acknowledges understanding of instructions. Verbal Stimulation=~VERBAL~ Physical Stimulation=~PHYSICAL~ Airway=~AIRWAY~ Respiration=~RESPIRA TION~ 8:38:29 TOTAL=~TOTAL~. (0=absent, 1=limited, 2=present) 8:38:32 Presedation assessment performed by Licensed [employer] RN. 8:38:35 Allens test performed on the right radial and ulnar artery. 8:38:37 Patient has been NPO for More than 6Hrs. 8:38:38 Skin Breakdown- none 8:38:39 Patient Warmer Placed on the Table. 8:38:41 Padmini Prominences Protected 8:38:45 A # 20 IV was noted in the Antecubital (left). Grade = 0 8:38:46 IV Solutions given in lab by Willy Willis RN in Left Antecubital via Peripheral IV. Pump/Dri p Flow using NaCl .9. 8:38:47 History and physical on the chart or being dictated. Assessment: Initial Case, HR=66 BPM, Rhythm=SR, MRKT=631/57 mmhg, Chest Pain=0, Edema=Mild, [place] r=Normal, 8:38:48 Skin = Warm, Dry Neurological: State=Alert, Ox3, MARTINEZ Vitals capture started with the following parameters, Patient=Adult, Interval=5 min, Initial Pre lybik=000 mmHg, 8:44:52 Deflation Rate=5 mmHg, Cuff placed on Left Arm 8:46:29 HR=59 bpm, FGGZ=559/57 mmhg, ZjY7=825 %, Resp=14 B/min 8:51:40 Reference ECG taken 8:52:03 Vitals capture stopped. 8:52:46 2 l/min OXYGEN given in lab by Willy Willis RN via Nasal. Vitals capture started with the following parameters, Patient=Adult, Interval=5 min, Initial Pre zoqlg=699 mmHg, 8:53:39 Deflation Rate=5 mmHg, Cuff placed on Left Arm 8:54:18 HR=66 bpm, MMWT=868/89 mmhg, LyD2=971.0 %, Resp=15 B/min 8:54:25 Right Radial and right groin prepped with 2% chlorhexidine, and draped after a 3 min. waitin g time. 8:55:30 MD paged 8:55:44 MD responded 8:56:52 Pressure channel 1 zeroed. 9:00:02 HR=67 bpm, IMKE=661/87 mmhg, SpO2=98.0 %, Resp=14 B/min 9:01:22 MD arrived. Time Out. Correct patient, correct procedure, correct physician, labs, allergies, and equipment verified with trestle mainternance laborer 9:04:07 team present. Fire risk assesment completed (see hard stop sheet for coding). Time Out Concu rred by MD and individual staff in procedure. 9:05:07 HR=59 bpm, GPFP=571/85 mmhg, SpO2=99.0 %, Resp=19 B/min 9:05:10 Case Start 9:05:18 5 mL 1% XYLOCAINE given in lab by Arik Patterson in Right Radial via Subcutaneous. 9:05:50 2 mg VERSED given in lab by Willy Willis RN in Left Antecubital via Peripheral IV. Ordered Arik Cordero. 9:06:02 Access site was Right Radial Artery. 9:06:22 50 mcg FENTANYL given in lab by Willy Willis RN in Left Antecubital via Peripheral IV. Order ed by Arik Patterson. A SHEATH, FR6 RADIAL PRELUDE EASE 11CM FR 6 was advanced into the Radial (right) using the Pablo stallings 9:06:38 technique. 5 mL (Bolus) RADIAL COCKTAIL given in lab by Arik Patterson in Right Radial via Radial. Using [Lizzy ution Name]. Reason: 9:07:21 Ntg 200mcg Verapamil 2.5mg Heparin 2500U. A CATHETER, FR5 OPTITORQUE RADIAL TIG 4.0 FR 5 was advanced over a wire. OMNIPAQUE, 350 MG, 150M L 150ML 9:07:31 was used for injections. 9:08:47 The LCA was injected and visualized at various angles. OMNIPAQUE, 350 MG, 150ML 150ML used. 9:09:19 HR=73 bpm, GPQC=217/69 mmhg, SpO2=97.0 %, Resp=18 B/min Recorded Pressure: Ao, HR=83, Condition=Condition 1 9:09:42 (Aorta) Ao 99/74/86 9:12:11 The RCA was injected and visualized at various angles. OMNIPAQUE, 350 MG, 150ML 150ML used. After removing the current catheter a MPA-2 INFINITI CATHETER FR 6 was advanced over a WIRE, EXC HANGE 260CM 9:12:51 3MMJ 260CM. 9:14:20 HR=76 bpm, ZDWI=238/70 mmhg, SpO2=93.0 %, Resp=17 B/min 9:14:46 Wire removed 9:14:54 A WIRE, EXCHANGE 260CM 3MMJ 260CM was inserted via Radial (right). Recorded Pressure: LV, HR=76, Condition=Condition 1 9:15:23 (Left Ventricle) LV 111/6/10 9:15:54 The LV was manually injected with 10 cc's and visualized. OMNIPAQUE, 350 MG, 150ML 150ML use d. 9:17:38 5000 units HEPARIN given in lab by Willy Willis RN in Left Antecubital via Peripheral IV. Or dered by Arik Patterson. After removing the current catheter a XB 3.5 GUIDE CATHETER FR 6 was advanced over a WIRE, EXCHA NGE 260CM 9:18:01 3MMJ 260CM. 9:19:21 HR=73 bpm, YSCJ=862/75 mmhg, SpO2=99.0 %, Resp=19 B/min 9:19:55 A WIRE, ASAHI PROWATER 180CM 180CM was inserted via Radial (right). 58 mL AGGRASTAT BOLUS given in lab by Willy Willis RN in Left Antecubital via Peripheral IV. Ord ered by Leonardo 9:20:28 Arik. 9:23:24 Wire removed for reshaping 9:23:47 Activated Clotting Time Drawn 9:24:22 HR=64 bpm, UZRJ=111/78 mmhg, SpO2=98.0 %, Resp=17 B/min 9:24:29 A WIRE, ASAHI PROWATER 180CM 180CM was inserted via Radial (right). 0.146 mcg/kg/min AGGRASTAT DRIP given in lab by Willy Willis RN in Left Antecubital via Peripher al IV. Pump/Drip 9:26:09 Flow = 21.6 ml/hr using NaCl .9 with a concentration of 12.5 mg in 250 ml. Ordered by Rossana Patterson. 9:27:34 50 mcg NTG (IC) given in lab by Arik Patterson in Right Radial via Intra-coronary. A STENT, 2.5 15MM GALI 2.5 15MM was advanced through a XB 3.5 GUIDE CATHETER FR 6 over a WIRE, A MAUDE 9:28:46 PROWATER 180CM 180CM. 9:29:25 HR=67 bpm, GLMY=238/70 mmhg, SpO2=97.0 %, Resp=14 B/min A STENT, 2.5 15MM GALI 2.5 15MM was deployed using a 30 TREASURE INDEFLATOR at 14 atmospheres for 30 seconds in 9:29:42 the LAD Prox. 9:31:12 Delivery device removed 9::23 50 mcg NTG (IC) given in lab by Arik Patterson in Right Radial via Intra-coronary. 9:32:21 Wire removed 9:32:25 Catheter was removed 9:33:00 Case End 9:34:25 HR=74 bpm, WWMQ=479/69 mmhg, SpO2=98.0 %, Resp=15 B/min Radial Compression Device Used. 20 mLs of air placed in BAND, RADIAL COMPRESSION TR LARGE 29 29C M. Affected 9:34:31 hand ~O2 SATURATION~ % O2 saturation. 9:35:19 600 mg PLAVIX given in lab by Willy Willis RN via Oral. Ordered by Arik Patterson. 9:39:24 HR=57 bpm, CMWS=006/69 mmhg, SpO2=98.0 %, Resp=6 B/min 9:42:07 ACT (Normal Range 90-180) = 575 9:43:52 Vitals capture stopped. 9:44:26 No case complications noted. 9:44:27 Cine recording checked. 9:44:32 Report called to floor. 9:44:34 Bedside Report will be given. 9:44:35 Implantable Device card placed in patient's chart. 9:44:36 A Left Heart Cath was performed. 9:46:00 Patient moved to stretcher End Study - Contrast Media Used In Study Contrast Total Opened (mL) Total Used (mL) Total Wasted (mL) Omnipaque 80 80 0 End Study - Radiation Exposure Fluoro Time (minutes) 10.5 End Study - Patient Disposition Complications Transferred To Interventional Outcome No Telemetry Bed successful
[2018-03-20] MEDS ORDERED: MISC INFORMATION XX ONE (10:00)
--- NOTE | 2018-03-20 10:09 | MA ---
cc: Arik Patterson MD DATE: 03/20/2018 PROCEDURE: Left heart catheterization, selective coronary angiography, left ventriculography, primary stenting of the proximal LAD. PROCEDURE NOTES: The patient was brought to the cardiac catheterization laboratory in a fasting state after having signed informed consent. The right radial region was prepped and draped as per policy and anesthetized with 1% lidocaine. Arterial access was obtained via the right radial artery and a 6-Serbian sheath placed. Coronary arteriography was performed using a Davenport catheter. Left ventriculography was done using a multipurpose catheter. Percutaneous coronary intervention was done as described below. There were no apparent, immediate complications. HEMODYNAMIC DATA: Left ventricle 110 with an end-diastolic pressure of less than 10. Aorta 99/74 with a mean of 86. There was no significant transvalvular aortic gradient on pullback of the multipurpose catheter. CORONARY ARTERIOGRAPHY: The left main is normal. The left anterior descending has diffuse proximal disease including a 40% lesion proximally and an 80% lesion more distally. The mid to distal LAD overall has minimal to mild diffuse luminal irregularities, resulting in up to 10-15% stenosis. The LAD gives rise to 3 tiny diagonals, the second and third of which have 60-70% ostial stenosis. The left circumflex is a medium-sized, somewhat tortuous vessel with up to 20% stenosis proximally. It gives rise to small obtuse marginals which are free of disease. The right coronary artery is a large, dominant vessel with minimal luminal irregularities proximally. There is a small caliber posterolateral branch, which has 60-70% proximal stenosis. LEFT VENTRICULOGRAPHY: Contrast injection of the left ventricle reveals no segmental wall motion abnormalities. Ejection fraction is estimated at 65%. PERCUTANEOUS CORONARY INTERVENTION DESCRIPTION: Aggrastat was given as per protocol. Adequate heparin was given during the procedure to achieve an ACT greater than 250 seconds. Using a 6-Serbian XB 3.5 guiding catheter, the ostium of the left main was reengaged. Using a 0.014 Prowater wire the proximal LAD disease was crossed without difficulty and the tip of the wire positioned distally. Primary stenting was done using a 2.5 x 15 mm Resolute Shashi stent, which was deployed at 15 atmospheres for 30 seconds. Final angiography shows reduction of the initial stenosis to 0 % residual with no definite evidence for dissection or distal embolization. The patient tolerated the procedure well. There were no apparent, immediate complications. CONCLUSIONS: 1. Moderate to severe two-vessel coronary artery disease. 2. Normal left ventricular function with estimated ejection fraction of 65%. 3. Status post primary stenting of the proximal left anterior descending artery. DISCUSSION: The disease in the proximal posterolateral branch will be treated medically. This branch is small in caliber and supplies a small territory. MD RICCO Haskins/JAYME , 09:42 AM , 10:07 AM [email or web address]
[2018-03-20] MEDS: METOPROLOL TARTRATE 25 MG TAB PO SCH ×2 (10:25→20:57)
[2018-03-20] MEDS: BUDESONIDE-FORMOTEROL 160/4.5 MCG INHALER INH SCH ×2 (10:25→20:58)
[2018-03-20] MEDS: PRAVASTATIN SOD 40 MG TAB PO SCH (10:26)
[2018-03-20] MEDS: ASPIRIN EC 81 MG TABEC PO SCH (10:26)
[2018-03-20] MEDS: FOLIC ACID 1 MG TAB PO SCH (10:26)
[2018-03-20] MEDS: amLODIPine BESYLATE 5 MG TAB PO SCH (10:27)
[2018-03-20] MEDS: MULTIVITAMINS/MINERALS THERAPEUTIC TAB PO SCH (10:27)
--- NOTE | 2018-03-20 11:48 | HHI.PR ---
Subjective Remarks Patient is status post stenting of the proximal LAD with the Shashi resolute stent Currently denies any chest pain or shortness of breath denies any nausea or vomiting will get a.m. labs Hopefully discharge tomorrow A.m. labs if stable discharged home tomorrow Objective Vitals Vital Signs Date Time Temp Pulse Resp B/P (MAP) Pulse Ox O2 Delivery O2 Flow Rate FiO2 03/20/18 11:00 97.7 65 18 118/72 (87) 100 03/20/18 07:15 97.4 81 20 148/91 (110) 98 03/20/18 07:00 98 Room Air 03/20/18 07:00 69 03/20/18 06:00 61 03/20/18 05:00 64 03/20/18 04:00 70 03/20/18 03:36 97.5 70 20 139/87 (104) 97 03/20/18 03:00 56 03/20/18 02:00 58 03/20/18 01:00 56 03/20/18 00:00 62 03/19/18 23:48 97.7 65 24 142/82 (102) 100 03/19/18 23:00 59 03/19/18 22:00 56 03/19/18 21:00 68 03/19/18 20:06 Room Air 03/19/18 20:06 97.7 69 20 145/91 (109) 99 03/19/18 20:00 60 03/19/18 19:00 66 03/19/18 18:00 70 03/19/18 17:00 74 03/19/18 16:00 70 03/19/18 15:06 98.0 73 16 151/91 (111) 98 03/19/18 15:00 72 03/19/18 14:00 78 03/19/18 13:00 60 03/19/18 12:00 56 I/O 03/19/18 03/19/18 03/19/18 03/20/18 03/20/18 03/20/18 07:00 15:00 23:00 07:00 15:00 23:00 Intake Total 240 ml 800 ml 920 ml Output Total 1300 ml 1000 ml 2975 ml Balance -1060 ml -200 ml -2055 ml Intake Oral 240 ml 800 ml 920 ml Output Urine Total 1300 ml 1000 ml 2975 ml # Bowel Movements 1 Result Diagram: 03/18/18 0222 03/19/18 0355 Other Results Laboratory Tests Test 03/17/18 19:50 03/17/18 21:22 03/18/18 02:22 03/18/18 10:47 White Blood Count 12.6 TH/MM3 9.4 TH/MM3 Red Blood Count 4.29 MIL/MM3 3.91 MIL/MM3 Hemoglobin 14.7 GM/DL 13.5 GM/DL Hematocrit 42.1 % 38.5 % Mean Corpuscular Volume 98.1 FL 98.5 FL Mean Corpuscular Hemoglobin 34.3 PG 34.6 PG Mean Corpuscular Hemoglobin Concent 35.0 % 35.1 % Red Cell Distribution Width 13.4 % 13.2 % Platelet Count 280 TH/MM3 250 TH/MM3 Mean Platelet Volume 7.6 FL 6.9 FL Neutrophils (%) (Auto) 74.8 % 62.5 % Lymphocytes (%) (Auto) 17.2 % 27.0 % Monocytes (%) (Auto) 6.2 % 7.6 % Eosinophils (%) (Auto) 1.2 % 2.1 % Basophils (%) (Auto) 0.6 % 0.8 % Neutrophils # (Auto) 9.4 TH/MM3 5.9 TH/MM3 Lymphocytes # (Auto) 2.2 TH/MM3 2.5 TH/MM3 Monocytes # (Auto) 0.8 TH/MM3 0.7 TH/MM3 Eosinophils # (Auto) 0.1 TH/MM3 0.2 TH/MM3 Basophils # (Auto) 0.1 TH/MM3 0.1 TH/MM3 CBC Comment DIFF FINAL DIFF FINAL Differential Comment Prothrombin Time 10.7 SEC Prothromb Time International Ratio 1.1 RATIO Blood Urea Nitrogen 8 MG/DL 10 MG/DL Creatinine 0.75 MG/DL 0.80 MG/DL Random Glucose 92 MG/DL 98 MG/DL Total Protein 8.2 GM/DL 6.8 GM/DL Albumin 3.9 GM/DL 3.3 GM/DL Calcium Level 9.0 MG/DL 8.2 MG/DL Alkaline Phosphatase 72 U/L 59 U/L Aspartate Amino Transf (AST/SGOT) 19 U/L 14 U/L Alanine Aminotransferase (ALT/SGPT) 23 U/L 18 U/L Total Bilirubin 0.5 MG/DL 0.5 MG/DL Sodium Level 128 MEQ/L 135 MEQ/L Potassium Level 4.0 MEQ/L 3.4 MEQ/L Chloride Level 95 MEQ/L 98 MEQ/L Carbon Dioxide Level 22.4 MEQ/L 29.2 MEQ/L Anion Gap 11 MEQ/L 8 MEQ/L Estimat Glomerular Filtration Rate 106 ML/MIN 98 ML/MIN Total Creatine Kinase 74 U/L Troponin I 0.16 NG/ML 0.16 NG/ML 0.12 NG/ML Urine Color LIGHT-YELLOW Urine Turbidity CLEAR Urine pH 6.0 Urine Specific [place] 1.002 Urine Protein NEG mg/dL Urine Glucose (UA) NEG mg/dL Urine Ketones NEG mg/dL Urine Occult Blood NEG Urine Nitrite NEG Urine Bilirubin NEG Urine Urobilinogen LESS THAN 2.0 MG/DL Urine Leukocyte Esterase NEG Urine Squamous Epithelial Cells <1 /hpf Microscopic Urinalysis Comment CULT NOT INDICATED Hemoglobin A1c 5.0 % Triglycerides Level 108 MG/DL Cholesterol Level 141 MG/DL LDL Cholesterol 83 MG/DL HDL Cholesterol 36.0 MG/DL Cholesterol/HDL Ratio 3.91 RATIO Test 03/19/18 03:55 Blood Urea Nitrogen 13 MG/DL Creatinine 0.75 MG/DL Random Glucose 93 MG/DL Calcium Level 9.1 MG/DL Sodium Level 137 MEQ/L Potassium Level 4.3 MEQ/L Chloride Level 102 MEQ/L Carbon Dioxide Level 26.5 MEQ/L Anion Gap 9 MEQ/L Estimat Glomerular Filtration Rate 106 ML/MIN Thyroid Stimulating Hormone 3rd Gen 3.300 uIU/ML Imaging Last Impressions Myocardial Perfusion Scan Nuc Med 03/18/18 Signed Impressions: CONCLUSION: 1. Moderate area of mild reversibility involving the lateral and inferior wall s concerning for ischemia. 2. Normal ejection fraction. Head CT 03/17/18 Signed Impressions: CONCLUSION: 1. Stable evaluation. 2. No evidence of acute infarct, hemorrhage, mass or edema. Chest X-Ray 03/17/18 Signed Impressions: CONCLUSION: No evidence of acute process. Objective Remarks GENERAL: Awake alert and oriented 3 talkative and cooperative SKIN: Warm and dry. HEAD: Atraumatic. Normocephalic. EYES: Pupils equal and round. No scleral icterus. No injection or drainage. Extraocular muscles intact ENT: No nasal bleeding or discharge. Mucous membranes pink and moist. Tongue midline NECK: Trachea midline. No JVD. Supple CARDIOVASCULAR: Regular rate and rhythm. S1-S2 no S3 or S4 RESPIRATORY: No accessory muscle use. Clear to auscultation. Breath sounds equal bilaterally. GASTROINTESTINAL: Abdomen soft, non-tender, nondistended. Hepatic and splenic margins not palpable. MUSCULOSKELETAL: Extremities without clubbing, cyanosis, or edema. No obvious deformities. NEUROLOGICAL: Awake and alert. No obvious cranial nerve deficits. Motor grossly within normal limits. Five out of 5 muscle strength in the arms and legs. Normal speech. PSYCHIATRIC: Appropriate mood and affect; insight and judgment normal. Procedures 03/20/2018 PROCEDURE: Left heart catheterization, selective coronary angiography, left ventriculography, primary stenting of the proximal LAD. PROCEDURE NOTES: The patient was brought to the cardiac catheterization laboratory in a fasting state after having signed informed consent. The right radial region was prepped and draped as per policy and anesthetized with 1% lidocaine. Arterial access was obtained via the right radial artery and a 6-[place]og[place] sheath placed. Coronary arteriography was performed using a Mulhall catheter. Left ventriculography was done using a multipurpose catheter. Percutaneous coronary intervention was done as described below. There were no apparent, immediate complications. HEMODYNAMIC DATA: Left ventricle 110 with an end-diastolic pressure of less than 10. Aorta 99/74 with a mean of 86. There was no significant transvalvular aortic gradient on pullback of the multipurpose catheter. CORONARY ARTERIOGRAPHY: The left main is normal. The left anterior descending has diffuse proximal disease including a 40% lesion proximally and an 80% lesion more distally. The mid to distal LAD overall has minimal to mild diffuse luminal irregularities, resulting in up to 10-15% stenosis. The LAD gives rise to 3 tiny diagonals, the second and third of which have 60-70% ostial stenosis. The left circumflex is a medium-sized, somewhat tortuous vessel with up to 20% stenosis proximally. It gives rise to small obtuse marginals which are free of disease. The right coronary artery is a large, dominant vessel with minimal luminal irregularities proximally. There is a small caliber posterolateral branch, which has 60-70% proximal stenosis. LEFT VENTRICULOGRAPHY: Contrast injection of the left ventricle reveals no segmental wall motion abnormalities. Ejection fraction is estimated at 65%. PERCUTANEOUS CORONARY INTERVENTION DESCRIPTION: Aggrastat was given as per protocol. Adequate heparin was given during the procedure to achieve an ACT greater than 250 seconds. Using a 6-[place] XB 3.5 guiding catheter, the ostium of the left main was reengaged. Using a 0.014 [place] wire the proximal LAD disease was crossed without difficulty and the tip of the wire positioned distally. Primary stenting was done using a 2.5 x 15 mm Resolute Shashi stent, which was deployed at 15 atmospheres for 30 seconds. Final angiography shows reduction of the initial stenosis to 0 % residual with no definite evidence for dissection or distal embolization. The patient tolerated the procedure well. There were no apparent, immediate complications. CONCLUSIONS: 1. Moderate to severe two-vessel coronary artery disease. 2. Normal left ventricular function with estimated ejection fraction of 65%. 3. Status post primary stenting of the proximal left anterior descending artery. DISCUSSION: The disease in the proximal posterolateral branch will be treated medically. This branch is small in caliber and supplies a small territory. Arik Patterson MD Medications and IVs Current Medications Albuterol/ Ipratropium (Duoneb Neb) 1 ampule ONCE ONCE NEB Last administered on 03/17/18at 19:58; Start 03/17/18 at 19:45; Stop 03/17/18 at 19:48; Status DC Sodium Chloride 500 ml @ 500 mls/hr BOLUS ONCE IV Last administered on at 22:19; Start 03/17/18 at 22:15; Stop 03/17/18 at 23:14; Status DC Aspirin (Aspirin Chew) 324 mg ONCE ONCE CHEW Last administered on 03/17/18at 22 :58; Start 03/17/18 at 22:45; Stop 03/17/18 at 22:46; Status DC Nitroglycerin (Nitroglycerin 2% Oint) 1 inch ONCE ONCE TOPICAL Last administered on 03/17/18at 22:57; Start 03/17/18 at 22:45; Stop 03/17/18 at 22:46 ; Status DC Folic Acid (Folate) 1 mg DAILY PO Last administered on 03/20/18at 10:26; Start 03/18/18 at 09:00; Stop 03/23/18 at 08:59 Thiamine HCl (Vitamin B1) 100 mg DAILY PO Last administered on 03/19/18at 09:06 ; Start 03/17/18 at 22:45 Multivitamins/ Minerals Therapeutic (Theragran M Tab) 1 tab DAILY PO Last administered on 03/20/18at 10:27; Start 03/18/18 at 09:00; Stop 03/23/18 at 08:59 Flumazenil (Romazicon Inj) 0.2 mg Q1M PRN IV PUSH SEE LABEL COMMENTS; Start at 22:45 Lorazepam (Ativan) 1 mg Q4H PRN PO CIWA 8 - 10; Start 03/17/18 at 22:45 Lorazepam (Ativan Inj) 1 mg Q4H PRN IV PUSH CIWA 8 - 10; Start 03/17/18 at 22: 45 Lorazepam (Ativan) 2 mg Q2H PRN PO CIWA 11-14 Last administered on 03/18/18at 20 :03; Start 03/17/18 at 22:45 Lorazepam (Ativan Inj) 2 mg Q2H PRN IV PUSH CIWA 11-14; Start 03/17/18 at 22:45 Lorazepam (Ativan Inj) 2 mg Q1H PRN IV PUSH CIWA 15-20; Start 03/17/18 at 22:45 Lorazepam (Ativan Inj) 2 mg Q15M PRN IV PUSH CIWA > 20; Start 03/17/18 at 22:45 Haloperidol Lactate (Haldol Inj) 2 mg Q15M PRN IM SEE LABEL COMMENTS; Start at 22:45 Sodium Chloride 1,000 ml @ 42 mls/hr [id number] IV Last administered on at 09:58; Start 03/17/18 at 22:36; Stop 03/19/18 at 11:13; Status DC Sodium Chloride (NS Flush) 2 ml UNSCH PRN IV FLUSH FLUSH AFTER USING IV ACCESS ; Start 03/17/18 at 22:45 Sodium Chloride (NS Flush) 2 ml BID IV FLUSH Last administered on 03/19/18at 20: 21; Start 03/18/18 at 09:00 Metoclopramide HCl (Reglan Inj) 5 mg Q6H PRN IV PUSH NAUSEA OR VOMITING; Start 03/17/18 at 22:45 Heparin Sodium (Porcine) (Heparin Inj) 5,000 units Q12H SQ Last administered on 03/19/18at 20:20; Start 03/18/18 at 09:00; Stop 03/20/18 at 10:40; Status DC Acetaminophen (Tylenol) 650 mg Q6H PRN PO FEVER/PAIN SCALE 1 TO 2; Start at 22:45 Acetaminophen/ Hydrocodone Bitart ([place] 5-325 Mg) 1 tab Q4H PRN PO PAIN SCALE 3 TO 5; Start 03/17/18 at 22:45 Morphine Sulfate (Morphine Inj) 2 mg Q3H PRN IV PUSH Pain 6-10; Start 03/17/18 at 22:45 Senna/Docusate Sodium (Martha-Colace) 1 tab BID PO Last administered on at 20:20; Start 03/18/18 at 09:00 Magnesium Hydroxide (Milk Of Magnesia Liq) 30 ml Q12H PRN PO Mild constipation ; Start 03/17/18 at 22:45 Sennosides (Senokot) 17.2 mg Q12H PRN PO Moderate constipation; Start 03/17/18 at 22:45 Bisacodyl (Dulcolax Supp) 10 mg DAILY PRN RECTAL SEVERE CONSITIPATION/ IF NPO ; Start 03/17/18 at 22:45 Lactulose (Lactulose Liq) 30 ml DAILY PRN PO SEVERE CONSITIPATION/ IF PO; Start 03/17/18 at 22:45 Nitroglycerin (Nitroglycerin 2% Oint) 0.5 inch Q6HR PRN TOPICAL CHEST PAIN; Start 03/17/18 at 22:45 Aspirin (Ecotrin Ec) 81 mg DAILY PO Last administered on 03/20/18at 10:26; Start 03/18/18 at 09:00; Stop 03/20/18 at 10:42; Status DC Metoprolol Tartrate (Lopressor) 25 mg Q12HR PO Last administered on 03/20/18at 10:25; Start 03/18/18 at 09:00 Metoprolol Tartrate (Lopressor) 25 mg ONCE ONCE PO Last administered on at 22:58; Start 03/17/18 at 22:45; Stop 03/17/18 at 22:48; Status DC Pravastatin Sodium (Pravachol) 40 mg DAILY PO Last administered on 03/20/18at 10 :26; Start 03/18/18 at 09:00 Budesonide/ Formoterol Fumarate (Symbicort 160-4.5 Mcg Inh) 2 puff Q12HR INH Last administered on 03/20/18at 10:25; Start 03/18/18 at 09:00 Potassium Chloride (KCl) 30 meq ONCE ONCE PO Last administered on 03/18/18at 15 :58; Start 03/18/18 at 12:45; Stop 03/18/18 at 12:46; Status DC Regadenoson (Lexiscan Inj) 0.4 mg STK-MED ONCE .ROUTE Last administered on 03/19at 09:37; Start 03/19/18 at 09:37; Stop 03/19/18 at 09:38; Status DC Amlodipine Besylate (Norvasc) 2.5 mg DAILY PO Last administered on 03/19/18at 12 :29; Start 03/19/18 at 11:15; Stop 03/19/18 at 12:34; Status DC Miscellaneous (Pill Splitter) 1 ea UNSCH PRN OTHER SEE LABEL COMMENTS; Start at 11:30 Amlodipine Besylate (Norvasc) 5 mg DAILY PO Last administered on 03/20/18at 10: 27; Start 03/20/18 at 09:00 Sodium Chloride 1,000 ml @ 100 mls/hr Q10H IV Last administered on 03/20/18at 06:31; Start 03/19/18 at 13:00; Stop 03/24/18 at 12:59 Diphenhydramine HCl (Benadryl) 50 mg MAMMALOGIST PO ; Start 03/19/18 at 12:45; Stop 03/23/18 at 12:44 Diazepam (Valium) 10 mg MAMMALOGIST PO ; Start 03/19/18 at 12:45; Stop 03/23/18 at 12:44 Midazolam HCl (Versed Inj) 1 mg MAMMALOGIST IV PUSH ; Start 03/19/18 at 12:45; Stop 03/23/18 at 12:44 Heparin Sodium/ Sodium Chloride 1,500 ml @ As Directed STK-MED ONCE .ROUTE ; Start 03/20/18 at 08:40; Stop 03/20/18 at 08:41; Status DC Midazolam HCl (Versed Inj) 2 mg STK-MED ONCE .ROUTE Last administered on at 09:05; Start 03/20/18 at 08:40; Stop 03/20/18 at 08:41; Status DC Fentanyl Citrate (fentaNYL INJ) 100 mcg STK-MED ONCE .ROUTE Last administered on 03/20/18at 09:06; Start 03/20/18 at 08:40; Stop 03/20/18 at 08:41; Status DC Verapamil HCl (Isoptin Inj) 5 mg STK-MED ONCE .ROUTE ; Start 03/20/18 at 08:40; Stop 03/20/18 at 08:41; Status DC Heparin Sodium (Porcine) (Heparin Inj) 10,000 units STK-MED ONCE .ROUTE Last administered on 03/20/18at 09:17; Start 03/20/18 at 08:40; Stop 03/20/18 at 08:41 ; Status DC Nitroglycerin 5 ml @ As Directed STK-MED ONCE .ROUTE ; Start 03/20/18 at 08:40; Stop 03/20/18 at 08:41; Status DC Tirofiban/Sodium Chloride 250 ml @ As Directed STK-MED ONCE IV ; Start at 09:18; Stop 03/20/18 at 09:19; Status DC Clopidogrel Bisulfate (Plavix) 600 mg STK-MED ONCE .ROUTE Last administered on 03/20/18at 09:35; Start 03/20/18 at 09:32; Stop 03/20/18 at 09:33; Status DC Sodium Chloride 1,000 ml @ 125 mls/hr Q8H IV ; Start 03/20/18 at 09:50; Stop at 17:49 Aspirin (Aspirin) 325 mg DAILY PO ; Start 03/21/18 at 09:00 Clopidogrel Bisulfate (Plavix) 75 mg DAILY PO ; Start 03/21/18 at 09:00 Miscellaneous Information 1 ONCE ONCE XX ; Start 03/20/18 at 10:00; Stop at 10:42; Status DC Tirofiban/Sodium Chloride 250 ml @ 21.546 mls/ hr [id number] IV ; Start 03/20/18 at 09:50 A/P Problem List: (1) Dizziness ICD Code: R42 - Dizziness and giddiness (2) Elevated troponin ICD Code: R74.8 - Abnormal levels of other serum enzymes (3) Hyponatremia ICD Code: E87.1 - Hypo-osmolality and hyponatremia (4) Leukocytosis ICD Code: D72.829 - Elevated white blood cell count, unspecified (5) HTN (hypertension) ICD Code: I10 - Essential (primary) hypertension Status: Chronic (6) Tobacco abuse ICD Code: Z72.0 - Tobacco use (7) Alcohol abuse ICD Code: F10.10 - Alcohol abuse, uncomplicated Status: Chronic Assessment and Plan 62 years old malle Dizziness: acute onset of dizziness- resolved w/ near syncopal event, likely secondary to underlying ischemia. CT Head w/ no acute findings, images reviewed by me. Check Echo for valvular abnormality. Telemetry. IVF for hydration.= decrease rate. good po Atypical chest pain - Elevated Trop: Trop 0.16, no acute EKG changes, no c/o chest pain only "cramping". HTN: Uncontrolled. BP 205/99, HR 90 on arrival, Metoprolol PO, monitor BP, antihypertensives as needed for BP >180 states history of hypertesnion in the past - was on meds but was DC Echo unremarkable- EF 55-60% ASA, Statin, Metoprolol, NTG/Morphine prn. Add amlodipine 2.5 mg po daily ongoing myocardial perfusion study was positive underwent cardiac catheterization with stenting Dr. Patterson ff Leukocytosis: WBC 12.6, no signs of infection. LIkely reactive CXR w/ no acute findings, U/a negative for UTI. Likely reactive. ff Hyponatremia: Na 128, dehydration/alcohol abuse, resolved TSH normal Hypokalemia- - Improved Alcohol Abuse: Drinks daily but 4-5 beers. denies hhsitory of DTs. CIWA, Seizure Precautions, MVT/Thiamine/Folate replacement. Tobacco Abuse: Pt counselled. Ativan prn. No NicoDerm to avoid further vasoconstriction. DVT Prophylaxis: Heparin sq Social work for DC planning as needed. PT consult today Hopefully discharge to home tomorrow Discharge Planning A.m. labs and if cleared by cardiology discharge tomorrow Problem Qualifiers (1) HTN (hypertension): Qualified Codes: I10 - Essential (primary) hypertension Sohail Ny DO March 20, 2018 11:48
[2018-03-20] MEDS ORDERED: IOHEXOL 350 MG/ML 100 ML BTL (for Cath Lab) OTHER ONE (13:45)
[2018-03-20] MEDS: TIROFIBAN INFUSION INJ 250 ML IV SCH ×2 (19:01→21:27)
[2018-03-20] MEDS: ACETAMINOPHEN 325 MG TAB PO PRN (20:58)
[2018-03-21] VITALS (18 sets, daily range): BP systolic 126–159; BP diastolic 78–98; PULSE 51–83; RESP 16–18; TEMP 97.4–98; O2SAT 95–99
[2018-03-21 06:32] LABS: AUTOMATED NEUTROPHIL # 5.7 TH/MM3 (1.8-7.7); BASOPHIL % 0.6 % (0.0-2.0); EOSINOPHIL # 0.1 TH/MM3 (0-0.4); EOSINOPHIL % 1.6 % (0.0-4.0); HEMATOCRIT 41.3 % (39.0-51.0); HEMOGLOBIN 14.3 GM/DL (13.0-17.0); LYMPH % 22.5 % (9.0-44.0); LYMPHOCYTE # 1.9 TH/MM3 (1.0-4.8); MEAN CELL VOLUME 97.8 FL (80.0-100.0); MEAN CORPUSCULAR HEMOGLOBIN 33.8 PG (27.0-34.0); MEAN CORPUSCULAR HGB CONC 34.6 % (32.0-36.0); MEAN PLATELET VOLUME 7.4 FL (7.0-11.0); MONO % 7.8 % (0.0-8.0); MONOCYTE # 0.7 TH/MM3 (0-0.9); NEUT % 67.5 % (16.0-70.0); PLATELET COUNT 251 TH/MM3 (150-450); RED BLOOD COUNT 4.22 MIL/MM3 (4.50-5.90); RED CELL DISTRIBUTION WIDTH 13.3 % (11.6-17.2); WHITE BLOOD COUNT 8.5 TH/MM3 (4.0-11.0)
[2018-03-21 06:54] LABS: ALBUMIN 3.6 GM/DL (3.4-5.0); AST (GOT) 17 U/L (15-37); BICARBONATE 27.8 MEQ/L (21.0-32.0); BLOOD UREA NITROGEN 10 MG/DL (7-18); CALCIUM 9.1 MG/DL (8.5-10.1); CHLORIDE 100 MEQ/L (98-107); CREATININE 0.78 MG/DL (0.60-1.30); GLOMERULAR FILTRATION RATE 101 ML/MIN (>89); GLUCOSE,RANDOM 101 MG/DL (74-106); SODIUM (NA) 136 MEQ/L (136-145)
[2018-03-21 06:55] LABS: CHOLESTEROL 138 MG/DL (120-200); TRIGLYCERIDES 104 MG/DL (42-150)
[2018-03-21 07:05] LABS: ALKALINE PHOSPHATASE 66 U/L (45-117); ALT (GPT) 24 U/L (12-78); CHOLESTEROL/ HDL RATIO 3.75 RATIO; FREE T4 1.06 NG/DL (0.76-1.46); HDL CHOLESTEROL 36.8 MG/DL (40.0-60.0); LDL CHOLESTEROL 80 MG/DL (0-99); PHOSPHORUS 3.5 MG/DL (2.5-4.9); TOTAL BILIRUBIN ADULT 0.4 MG/DL (0.2-1.0); TOTAL PROTEIN 7.3 GM/DL (6.4-8.2)
--- NOTE | 2018-03-21 07:45 | PD.CARD.PN ---
Subjective Subjective Remarks Denies dyspnea, CP. No palpitations, right wrist pain. Lightheadedness overall much improved. Objective Medications Item Value Date Time Aspirin 325 mg 03/21/18 09 (Aspirin) DAILY/PO Clopidogrel 75 mg 03/21/18 09 Bisulfate DAILY/PO (Plavix) Amlodipine 5 mg 03/20/18899 Besylate DAILY/PO 03/20/18 1027 (Norvasc) Pravastatin Sodium 40 mg 03/18/18 09 (Pravachol) DAILY/PO 03/20/18 1026 Metoprolol 25 mg 03/18/18899 Tartrate Q12HR/PO 03/20/182056 (Lopressor) Current Medications Medications (Trade) Dose Ordered Sig/Mandy Route Start Time Stop Time Status Last Admin (Folate) 1 mg DAILY PO 03/18/18 09:00 03/23/18 08:59 03/20/18 10:26 (Vitamin B1) 100 mg DAILY PO 03/17/18 22:45 03/19/18 09:06 (Theragran M Tab) 1 tab DAILY PO 03/18/18 09:00 03/23/18 08:59 03/20/18 10:27 (Romazicon Inj) 0.2 mg Q1M PRN IV PUSH 03/17/18 22:45 (Ativan) 1 mg Q4H PRN PO 03/17/18 22:45 (Ativan Inj) 1 mg Q4H PRN IV PUSH 03/17/18 22:45 (Ativan) 2 mg Q2H PRN PO 03/17/18 22:45 03/18/18 20:03 (Ativan Inj) 2 mg Q2H PRN IV PUSH 03/17/18 22:45 (Ativan Inj) 2 mg Q1H PRN IV PUSH 03/17/18 22:45 (Ativan Inj) 2 mg Q15M PRN IV PUSH 03/17/18 22:45 (Haldol Inj) 2 mg Q15M PRN IM 03/17/18 22:45 (NS Flush) 2 ml UNSCH PRN IV FLUSH 03/17/18 22:45 (NS Flush) 2 ml BID IV FLUSH 03/18/18 09:00 03/20/18 21:00 (Reglan Inj) 5 mg Q6H PRN IV PUSH 03/17/18 22:45 (Tylenol) 650 mg Q6H PRN PO 03/17/18 22:45 03/20/18 20:58 ([place] 5-325 Mg) 1 tab Q4H PRN PO 03/17/18 22:45 (Morphine Inj) 2 mg Q3H PRN IV PUSH 03/17/18 22:45 (Martha-Colace) 1 tab BID PO 03/18/18 09:00 03/20/18 20:57 (Milk Of Magnesia Liq) 30 ml Q12H PRN PO 03/17/18 22:45 (Senokot) 17.2 mg Q12H PRN PO 03/17/18 22:45 (Dulcolax Supp) 10 mg DAILY PRN RECTAL 03/17/18 22:45 (Lactulose Liq) 30 ml DAILY PRN PO 03/17/18 22:45 (Nitroglycerin 2% Oint) 0.5 inch Q6HR PRN TOPICAL 03/17/18 22:45 (Lopressor) 25 mg Q12HR PO 03/18/18 09:00 03/20/18 20:57 (Pravachol) 40 mg DAILY PO 03/18/18 09:00 03/20/18 10:26 (Symbicort 160-4.5 Mcg Inh) 2 puff Q12HR INH 03/18/18 09:00 03/20/18 20:58 (Pill Splitter) 1 ea UNSCH PRN OTHER 03/19/18 11:30 (Norvasc) 5 mg DAILY PO 03/20/18 09:00 03/20/18 10:27 Sodium Chloride 1,000 ml @ 100 mls/hr Q10H IV 03/19/18 13:00 03/24/18 12:59 03/20/18 06:31 (Benadryl) 50 mg BINGO ATTENDANT PO 03/19/18 12:45 03/23/18 12:44 (Valium) 10 mg BINGO ATTENDANT PO 03/19/18 12:45 03/23/18 12:44 (Versed Inj) 1 mg BINGO ATTENDANT IV PUSH 03/19/18 12:45 03/23/18 12:44 (Aspirin) 325 mg DAILY PO 03/21/18 09:00 (Plavix) 75 mg DAILY PO 03/21/18 09:00 Tirofiban/Sodium Chloride 250 ml @ 21.546 mls/ hr [id number] IV 03/20/18 09:50 03/20/18 19:01 Vital Signs / I&O Vital Signs Date Time Temp Pulse Resp B/P (MAP) Pulse Ox O2 Delivery O2 Flow Rate FiO2 03/21/18 06:00 56 03/21/18 05:00 83 03/21/18 04:00 58 03/21/18 03:15 97.4 66 18 126/78 (94) 97 03/21/18 03:00 57 03/21/18 02:00 54 03/21/18 01:00 51 03/21/18 00:00 67 03/20/18 23:06 97.6 54 20 113/66 (82) 98 03/20/18 23:00 54 03/20/18 22:00 68 03/20/18 22:00 20 03/20/18 21:00 70 03/20/18 20:08 97.7 66 18 132/86 (101) 100 03/20/18 20:08 100 Room Air 03/20/18 20:00 66 03/20/18 19:00 76 03/20/18 18:00 78 03/20/18 17:00 62 03/20/18 16:00 62 03/20/18 15:00 98.1 69 18 121/76 (91) 98 03/20/18 15:00 68 03/20/18 14:00 68 03/20/18 13:00 78 03/20/18 12:00 62 03/20/18 11:00 97.7 65 18 118/72 (87) 100 03/20/18 11:00 66 03/20/18 10:00 66 03/20/18 08:00 80 I/O 03/20/18 03/20/18 03/20/18 03/21/18 03/21/18 03/21/18 07:00 15:00 23:00 07:00 15:00 23:00 Intake Total 920 ml 1500 ml 720 ml Output Total 2975 ml 1500 ml Balance -2055 ml 1500 ml -780 ml Intake Oral 920 ml 720 ml IV Total 1500 ml Output Urine Total 2975 ml 1500 ml Physical Exam GENERAL: Well developed, well nourished. No acute distress. HEENT: Jugular venous pressure is normal. CHEST: Lungs clear to auscultation anteriorly. CARDIAC: Regular rate and rhythm without S3, S4, or murmur. ABDOMEN: Soft, nontender, no hepatosplenomegaly. Bowel sounds present. EXTREMITIES: No clubbing, cyanosis, or edema. Right radial arteriotomy site stable, normal pulse. Laboratory Laboratory Tests Test 03/21/18 05:08 White Blood Count 8.5 TH/MM3 Red Blood Count 4.22 MIL/MM3 Hemoglobin 14.3 GM/DL Hematocrit 41.3 % Mean Corpuscular Volume 97.8 FL Mean Corpuscular Hemoglobin 33.8 PG Mean Corpuscular Hemoglobin Concent 34.6 % Red Cell Distribution Width 13.3 % Platelet Count 251 TH/MM3 Mean Platelet Volume 7.4 FL Neutrophils (%) (Auto) 67.5 % Lymphocytes (%) (Auto) 22.5 % Monocytes (%) (Auto) 7.8 % Eosinophils (%) (Auto) 1.6 % Basophils (%) (Auto) 0.6 % Neutrophils # (Auto) 5.7 TH/MM3 Lymphocytes # (Auto) 1.9 TH/MM3 Monocytes # (Auto) 0.7 TH/MM3 Eosinophils # (Auto) 0.1 TH/MM3 Basophils # (Auto) 0.0 TH/MM3 CBC Comment DIFF FINAL Differential Comment Blood Urea Nitrogen 10 MG/DL Creatinine 0.78 MG/DL Random Glucose 101 MG/DL Total Protein 7.3 GM/DL Albumin 3.6 GM/DL Calcium Level 9.1 MG/DL Phosphorus Level 3.5 MG/DL Magnesium Level 2.0 MG/DL Alkaline Phosphatase 66 U/L Aspartate Amino Transf (AST/SGOT) 17 U/L Alanine Aminotransferase (ALT/SGPT) 24 U/L Total Bilirubin 0.4 MG/DL Sodium Level 136 MEQ/L Potassium Level 4.2 MEQ/L Chloride Level 100 MEQ/L Carbon Dioxide Level 27.8 MEQ/L Anion Gap 8 MEQ/L Estimat Glomerular Filtration Rate 101 ML/MIN Total Creatine Kinase 41 U/L Triglycerides Level 104 MG/DL Cholesterol Level 138 MG/DL LDL Cholesterol 80 MG/DL HDL Cholesterol 36.8 MG/DL Cholesterol/HDL Ratio 3.75 RATIO Free Thyroxine 1.06 NG/DL Thyroid Stimulating Hormone 3rd Gen 2.750 uIU/ML Assessment and Plan Problem List: (1) CAD (coronary artery disease) ICD Codes: I25.10 - Atherosclerotic heart disease of [place] coronary artery without angina pectoris Status: Chronic Plan: Clinically stable. Cath yesterday showed high grade CAD in the proximal LAD, stented without difficulty. EF 65% by cath and echo. REC OK for discharge from my standpoint, 4 week f/u with me Plavix, aspirin, beta kulwant (2) Dizziness ICD Codes: R42 - Dizziness and giddiness Status: Acute Plan: Dizziness improved overall. No arrhythmias evident. (3) HTN (hypertension) ICD Codes: I10 - Essential (primary) hypertension Status: Chronic Plan: Stable. Normotensive. Continue amlodipine, metoprolol. (4) Hyperlipidemia ICD Codes: E78.5 - Hyperlipidemia, unspecified Status: Chronic Plan: Somewhat suboptimal LDL level. Recommend continue pravastatin, recheck lipid profile in 6 weeks. Code Status full code Discussed Condition With patient Problem Qualifiers (1) CAD (coronary artery disease): Qualified Codes: I25.110 - Atherosclerotic heart disease of [place] coronary artery with unstable angina pectoris (2) HTN (hypertension): Qualified Codes: I10 - Essential (primary) hypertension (3) Hyperlipidemia: Qualified Codes: E78.2 - Mixed hyperlipidemia Arik Patterson MD March 21, 2018 07:45
[2018-03-21] MEDS: SODIUM CHLORIDE 0.9% FLUSH 10 ML FLUSH IV FLUSH SCH (09:00)
[2018-03-21] MEDS ORDERED: CLOPIDOGREL 75 MG TAB PO SCH (09:00)
[2018-03-21] MEDS ORDERED: ASPIRIN 325 MG TAB PO SCH (09:00)
[2018-03-21] MEDS ORDERED: GLUCAGON 1 MG/ML VIAL OTHER PRN (09:45)
[2018-03-21] MEDS ORDERED: DEXTROSE 50% IN WATER 50 ML VIAL(D50) IV PUSH PRN (09:45)
[2018-03-21] MEDS: THIAMINE HCL 100 MG TAB PO SCH (10:06)
[2018-03-21] MEDS: BUDESONIDE-FORMOTEROL 160/4.5 MCG INHALER INH SCH (10:06)
[2018-03-21] MEDS: METOPROLOL TARTRATE 25 MG TAB PO SCH (10:07)
[2018-03-21] MEDS: ACETAMINOPHEN 325 MG TAB PO PRN (10:07)
[2018-03-21] MEDS: MULTIVITAMINS/MINERALS THERAPEUTIC TAB PO SCH (10:07)
[2018-03-21] MEDS: amLODIPine BESYLATE 5 MG TAB PO SCH (10:08)
[2018-03-21] MEDS: PRAVASTATIN SOD 40 MG TAB PO SCH (10:08)
[2018-03-21] MEDS: DOCUSATE SODIUM 50 MG/SENNA 8.6 MG TAB PO SCH (10:08)
[2018-03-21] MEDS: FOLIC ACID 1 MG TAB PO SCH (10:08)
[2018-03-21] MEDS ORDERED: INSULIN ASPART SUPPLEMENTAL SCALE SQ SCH (12:00)
--- NOTE | 2018-03-21 15:19 | HHI.PR ---
Subjective Remarks Patient is status post stenting of the proximal LAD with the Shashi resolute stent Currently denies any chest pain or shortness of breath denies any nausea or vomiting will get a.m. labs Hopefully discharge tomorrow A.m. labs if stable discharged home tomorrow 03-21 CLEARED BY CARDIOLOGY FOR DC DC TO HOME TODAYD FOLLOW UP WITH IN CLINIC FOLLOW UP WITH CARDIOLOGY JULIUS RN AND PT AND CM Objective Vitals Vital Signs Date Time Temp Pulse Resp B/P (MAP) Pulse Ox O2 Delivery O2 Flow Rate FiO2 03/21/18 11:00 98.0 66 16 159/98 (118) 95 03/21/18 08:20 98.0 81 16 131/90 (104) 99 03/21/18 08:20 99 Room Air 03/21/18 06:00 56 03/21/18 05:00 83 03/21/18 04:00 58 03/21/18 03:15 97.4 66 18 126/78 (94) 97 03/21/18 03:00 57 03/21/18 02:00 54 03/21/18 01:00 51 03/21/18 00:00 67 03/20/18 23:06 97.6 54 20 113/66 (82) 98 03/20/18 23:00 54 03/20/18 22:00 68 03/20/18 22:00 20 03/20/18 21:00 70 03/20/18 20:08 97.7 66 18 132/86 (101) 100 03/20/18 20:08 100 Room Air 03/20/18 20:00 66 03/20/18 19:00 76 03/20/18 18:00 78 03/20/18 17:00 62 03/20/18 16:00 62 I/O 03/20/18 03/20/18 03/20/18 03/21/18 03/21/18 03/21/18 07:00 15:00 23:00 07:00 15:00 23:00 Intake Total 920 ml 1500 ml 720 ml Output Total 2975 ml 1500 ml Balance -2055 ml 1500 ml -780 ml Intake Oral 920 ml 720 ml IV Total 1500 ml Output Urine Total 2975 ml 1500 ml Result Diagram: 03/21/18 0508 03/21/18 0508 Other Results Laboratory Tests Test 03/19/18 03:55 03/21/18 05:08 Blood Urea Nitrogen 13 MG/DL 10 MG/DL Creatinine 0.75 MG/DL 0.78 MG/DL Random Glucose 93 MG/DL 101 MG/DL Calcium Level 9.1 MG/DL 9.1 MG/DL Sodium Level 137 MEQ/L 136 MEQ/L Potassium Level 4.3 MEQ/L 4.2 MEQ/L Chloride Level 102 MEQ/L 100 MEQ/L Carbon Dioxide Level 26.5 MEQ/L 27.8 MEQ/L Anion Gap 9 MEQ/L 8 MEQ/L Estimat Glomerular Filtration Rate 106 ML/MIN 101 ML/MIN Thyroid Stimulating Hormone 3rd Gen 3.300 uIU/ML 2.750 uIU/ML White Blood Count 8.5 TH/MM3 Red Blood Count 4.22 MIL/MM3 Hemoglobin 14.3 GM/DL Hematocrit 41.3 % Mean Corpuscular Volume 97.8 FL Mean Corpuscular Hemoglobin 33.8 PG Mean Corpuscular Hemoglobin Concent 34.6 % Red Cell Distribution Width 13.3 % Platelet Count 251 TH/MM3 Mean Platelet Volume 7.4 FL Neutrophils (%) (Auto) 67.5 % Lymphocytes (%) (Auto) 22.5 % Monocytes (%) (Auto) 7.8 % Eosinophils (%) (Auto) 1.6 % Basophils (%) (Auto) 0.6 % Neutrophils # (Auto) 5.7 TH/MM3 Lymphocytes # (Auto) 1.9 TH/MM3 Monocytes # (Auto) 0.7 TH/MM3 Eosinophils # (Auto) 0.1 TH/MM3 Basophils # (Auto) 0.0 TH/MM3 CBC Comment DIFF FINAL Differential Comment Total Protein 7.3 GM/DL Albumin 3.6 GM/DL Phosphorus Level 3.5 MG/DL Magnesium Level 2.0 MG/DL Alkaline Phosphatase 66 U/L Aspartate Amino Transf (AST/SGOT) 17 U/L Alanine Aminotransferase (ALT/SGPT) 24 U/L Total Bilirubin 0.4 MG/DL Total Creatine Kinase 41 U/L Triglycerides Level 104 MG/DL Cholesterol Level 138 MG/DL LDL Cholesterol 80 MG/DL HDL Cholesterol 36.8 MG/DL Cholesterol/HDL Ratio 3.75 RATIO Free Thyroxine 1.06 NG/DL Imaging Last Impressions Myocardial Perfusion Scan Nuc Med 03/18/18 0000 Signed Impressions: CONCLUSION: 1. Moderate area of mild reversibility involving the lateral and inferior wall s concerning for ischemia. 2. Normal ejection fraction. Head CT 03/17/18 Signed Impressions: CONCLUSION: 1. Stable evaluation. 2. No evidence of acute infarct, hemorrhage, mass or edema. Chest X-Ray 03/17/18 Signed Impressions: CONCLUSION: No evidence of acute process. Objective Remarks GENERAL: Awake alert and oriented 3 talkative and cooperative SKIN: Warm and dry. HEAD: Atraumatic. Normocephalic. EYES: Pupils equal and round. No scleral icterus. No injection or drainage. Extraocular muscles intact ENT: No nasal bleeding or discharge. Mucous membranes pink and moist. Tongue midline NECK: Trachea midline. No JVD. Supple CARDIOVASCULAR: Regular rate and rhythm. S1-S2 no S3 or S4 RESPIRATORY: No accessory muscle use. Clear to auscultation. Breath sounds equal bilaterally. GASTROINTESTINAL: Abdomen soft, non-tender, nondistended. Hepatic and splenic margins not palpable. MUSCULOSKELETAL: Extremities without clubbing, cyanosis, or edema. No obvious deformities. NEUROLOGICAL: Awake and alert. No obvious cranial nerve deficits. Motor grossly within normal limits. Five out of 5 muscle strength in the arms and legs. Normal speech. PSYCHIATRIC: Appropriate mood and affect; insight and judgment normal. Procedures 03/20/2018 PROCEDURE: Left heart catheterization, selective coronary angiography, left ventriculography, primary stenting of the proximal LAD. PROCEDURE NOTES: The patient was brought to the cardiac catheterization laboratory in a fasting state after having signed informed consent. The right radial region was prepped and draped as per policy and anesthetized with 1% lidocaine. Arterial access was obtained via the right radial artery and a 6-[place] sheath placed. Coronary arteriography was performed using a [place] catheter. Left ventriculography was done using a multipurpose catheter. Percutaneous coronary intervention was done as described below. There were no apparent, immediate complications. HEMODYNAMIC DATA: Left ventricle 110 with an end-diastolic pressure of less than 10. Aorta 99/74 with a mean of 86. There was no significant transvalvular aortic gradient on pullback of the multipurpose catheter. CORONARY ARTERIOGRAPHY: The left main is normal. The left anterior descending has diffuse proximal disease including a 40% lesion proximally and an 80% lesion more distally. The mid to distal LAD overall has minimal to mild diffuse luminal irregularities, resulting in up to 10-15% stenosis. The LAD gives rise to 3 tiny diagonals, the second and third of which have 60-70% ostial stenosis. The left circumflex is a medium-sized, somewhat tortuous vessel with up to 20% stenosis proximally. It gives rise to small obtuse marginals which are free of disease. The right coronary artery is a large, dominant vessel with minimal luminal irregularities proximally. There is a small caliber posterolateral branch, which has 60-70% proximal stenosis. LEFT VENTRICULOGRAPHY: Contrast injection of the left ventricle reveals no segmental wall motion abnormalities. Ejection fraction is estimated at 65%. PERCUTANEOUS CORONARY INTERVENTION DESCRIPTION: Aggrastat was given as per protocol. Adequate heparin was given during the procedure to achieve an ACT greater than 250 seconds. Using a 6-[place] XB 3.5 guiding catheter, the ostium of the left main was reengaged. Using a 0.014 [place] wire the proximal LAD disease was crossed without difficulty and the tip of the wire positioned distally. Primary stenting was done using a 2.5 x 15 mm Resolute Shashi stent, which was deployed at 15 atmospheres for 30 seconds. Final angiography shows reduction of the initial stenosis to 0 % residual with no definite evidence for dissection or distal embolization. The patient tolerated the procedure well. There were no apparent, immediate complications. CONCLUSIONS: 1. Moderate to severe two-vessel coronary artery disease. 2. Normal left ventricular function with estimated ejection fraction of 65%. 3. Status post primary stenting of the proximal left anterior descending artery. DISCUSSION: The disease in the proximal posterolateral branch will be treated medically. This branch is small in caliber and supplies a small territory. Arik Patterson MD Medications and IVs Current Medications Albuterol/ Ipratropium (Duoneb Neb) 1 ampule ONCE ONCE NEB Last administered on 03/17/18at 19:58; Start 03/17/18 at 19:45; Stop 03/17/18 at 19:48; Status DC Sodium Chloride 500 ml @ 500 mls/hr BOLUS ONCE IV Last administered on at 22:19; Start 03/17/18 at 22:15; Stop 03/17/18 at 23:14; Status DC Aspirin (Aspirin Chew) 324 mg ONCE ONCE CHEW Last administered on 03/17/18at 22 :58; Start 03/17/18 at 22:45; Stop 03/17/18 at 22:46; Status DC Nitroglycerin (Nitroglycerin 2% Oint) 1 inch ONCE ONCE TOPICAL Last administered on 03/17/18at 22:57; Start 03/17/18 at 22:45; Stop 03/17/18 at 22:46 ; Status DC Folic Acid (Folate) 1 mg DAILY PO Last administered on 03/21/18at 10:08; Start 03/18/18 at 09:00; Stop 03/23/18 at 08:59 Thiamine HCl (Vitamin B1) 100 mg DAILY PO Last administered on 03/21/18 10:06 ; Start 03/17/18 at 22:45 Multivitamins/ Minerals Therapeutic (Theragran M Tab) 1 tab DAILY PO Last administered on 03/21/18at 10:07; Start 03/18/18 at 09:00; Stop 03/23/18 at 08:59 Flumazenil (Romazicon Inj) 0.2 mg Q1M PRN IV PUSH SEE LABEL COMMENTS; Start at 22:45 Lorazepam (Ativan) 1 mg Q4H PRN PO CIWA 8 - 10; Start 03/17/18 at 22:45 Lorazepam (Ativan Inj) 1 mg Q4H PRN IV PUSH CIWA 8 - 10; Start 03/17/18 at 22: 45 Lorazepam (Ativan) 2 mg Q2H PRN PO CIWA 11-14 Last administered on 03/18/18at 20 :03; Start 03/17/18 at 22:45 Lorazepam (Ativan Inj) 2 mg Q2H PRN IV PUSH CIWA 11-14; Start 03/17/18 at 22:45 Lorazepam (Ativan Inj) 2 mg Q1H PRN IV PUSH CIWA 15-20; Start 03/17/18 at 22:45 Lorazepam (Ativan Inj) 2 mg Q15M PRN IV PUSH CIWA > 20; Start 03/17/18 at 22:45 Haloperidol Lactate (Haldol Inj) 2 mg Q15M PRN IM SEE LABEL COMMENTS; Start at 22:45 Sodium Chloride 1,000 ml @ 42 mls/hr [id number] IV Last administered on at 09:58; Start 03/17/18 at 22:36; Stop 03/19/18 at 11:13; Status DC Sodium Chloride (NS Flush) 2 ml UNSCH PRN IV FLUSH FLUSH AFTER USING IV ACCESS ; Start 03/17/18 at 22:45 Sodium Chloride (NS Flush) 2 ml BID IV FLUSH Last administered on 03/21/18at 09: 00; Start 03/18/18 at 09:00 Metoclopramide HCl (Reglan Inj) 5 mg Q6H PRN IV PUSH NAUSEA OR VOMITING; Start 03/17/18 at 22:45 Heparin Sodium (Porcine) (Heparin Inj) 5,000 units Q12H SQ Last administered on 03/19/18at 20:20; Start 03/18/18 at 09:00; Stop 03/20/18 at 10:40; Status DC Acetaminophen (Tylenol) 650 mg Q6H PRN PO FEVER/PAIN SCALE 1 TO 2 Last administered on 03/21/18at 10:07; Start 03/17/18 at 22:45 Acetaminophen/ Hydrocodone Bitart ([place] 5-325 Mg) 1 tab Q4H PRN PO PAIN SCALE 3 TO 5; Start 03/17/18 at 22:45 Morphine Sulfate (Morphine Inj) 2 mg Q3H PRN IV PUSH Pain 6-10; Start 03/17/18 at 22:45 Senna/Docusate Sodium (Martha-Colace) 1 tab BID PO Last administered on at 10:08; Start 03/18/18 at 09:00 Magnesium Hydroxide (Milk Of Magnesia Liq) 30 ml Q12H PRN PO Mild constipation ; Start 03/17/18 at 22:45 Sennosides (Senokot) 17.2 mg Q12H PRN PO Moderate constipation; Start 03/17/18 at 22:45 Bisacodyl (Dulcolax Supp) 10 mg DAILY PRN RECTAL SEVERE CONSITIPATION/ IF NPO ; Start 03/17/18 at 22:45 Lactulose (Lactulose Liq) 30 ml DAILY PRN PO SEVERE CONSITIPATION/ IF PO; Start 03/17/18 at 22:45 Nitroglycerin (Nitroglycerin 2% Oint) 0.5 inch Q6HR PRN TOPICAL CHEST PAIN; Start 03/17/18 at 22:45 Aspirin (Ecotrin Ec) 81 mg DAILY PO Last administered on 03/20/18 10:26; Start 03/18/18 at 09:00; Stop 03/20/18 at 10:42; Status DC Metoprolol Tartrate (Lopressor) 25 mg Q12HR PO Last administered on 03/21/18 10:07; Start 03/18/18 at 09:00 Metoprolol Tartrate (Lopressor) 25 mg ONCE ONCE PO Last administered on at 22:58; Start 03/17/18 at 22:45; Stop 03/17/18 at 22:48; Status DC Pravastatin Sodium (Pravachol) 40 mg DAILY PO Last administered on 03/21/18 10 :08; Start 03/18/18 at 09:00 Budesonide/ Formoterol Fumarate (Symbicort 160-4.5 Mcg Inh) 2 puff Q12HR INH Last administered on 03/21/18 10:06; Start 03/18/18 at 09:00 Potassium Chloride (KCl) 30 meq ONCE ONCE PO Last administered on 03/18/18at 15 :58; Start 03/18/18 at 12:45; Stop 03/18/18 at 12:46; Status DC Regadenoson (Lexiscan Inj) 0.4 mg STK-MED ONCE .ROUTE Last administered on 03/19at 09:37; Start 03/19/18 at 09:37; Stop 03/19/18 at 09:38; Status DC Amlodipine Besylate (Norvasc) 2.5 mg DAILY PO Last administered on 03/19/18at 12 :29; Start 03/19/18 at 11:15; Stop 03/19/18 at 12:34; Status DC Miscellaneous (Pill Splitter) 1 ea UNSCH PRN OTHER SEE LABEL COMMENTS; Start at 11:30 Amlodipine Besylate (Norvasc) 5 mg DAILY PO Last administered on 03/21/18at 10: 08; Start 03/20/18 at 09:00 Sodium Chloride 1,000 ml @ 100 mls/hr Q10H IV Last administered on 03/20/18at 06:31; Start 03/19/18 at 13:00; Stop 03/24/18 at 12:59 Diphenhydramine HCl (Benadryl) 50 mg DIRECTOR OF SUPPLY CHAIN PO ; Start 03/19/18 at 12:45; Stop 03/23/18 at 12:44 Diazepam (Valium) 10 mg DIRECTOR OF SUPPLY CHAIN PO ; Start 03/19/18 at 12:45; Stop 03/23/18 at 12:44 Midazolam HCl (Versed Inj) 1 mg DIRECTOR OF SUPPLY CHAIN IV PUSH ; Start 03/19/18 at 12:45; Stop 03/23/18 at 12:44 Heparin Sodium/ Sodium Chloride 1,500 ml @ As Directed STK-MED ONCE .ROUTE ; Start 03/20/18 at 08:40; Stop 03/20/18 at 08:41; Status DC Midazolam HCl (Versed Inj) 2 mg STK-MED ONCE .ROUTE Last administered on at 09:05; Start 03/20/18 at 08:40; Stop 03/20/18 at 08:41; Status DC Fentanyl Citrate (fentaNYL INJ) 100 mcg STK-MED ONCE .ROUTE Last administered on 03/20/18at 09:06; Start 03/20/18 at 08:40; Stop 03/20/18 at 08:41; Status DC Verapamil HCl (Isoptin Inj) 5 mg STK-MED ONCE .ROUTE ; Start 03/20/18 at 08:40; Stop 03/20/18 at 08:41; Status DC Heparin Sodium (Porcine) (Heparin Inj) 10,000 units STK-MED ONCE .ROUTE Last administered on 03/20/18at 09:17; Start 03/20/18 at 08:40; Stop 03/20/18 at 08:41 ; Status DC Nitroglycerin 5 ml @ As Directed STK-MED ONCE .ROUTE ; Start 03/20/18 at 08:40; Stop 03/20/18 at 08:41; Status DC Tirofiban/Sodium Chloride 250 ml @ As Directed STK-MED ONCE IV ; Start at 09:18; Stop 03/20/18 at 09:19; Status DC Clopidogrel Bisulfate (Plavix) 600 mg STK-MED ONCE .ROUTE Last administered on 03/20/18at 09:35; Start 03/20/18 at 09:32; Stop 03/20/18 at 09:33; Status DC Sodium Chloride 1,000 ml @ 125 mls/hr Q8H IV Last administered on 03/20/18at 19 :05; Start 03/20/18 at 09:50; Stop 03/20/18 at 17:49; Status DC Aspirin (Aspirin) 325 mg DAILY PO Last administered on 03/21/18at 10:08; Start 03/21/18 at 09:00 Clopidogrel Bisulfate (Plavix) 75 mg DAILY PO Last administered on 03/21/18at 10 :07; Start 03/21/18 at 09:00 Miscellaneous Information 1 ONCE ONCE XX ; Start 03/20/18 at 10:00; Stop at 10:42; Status DC Tirofiban/Sodium Chloride 250 ml @ 21.546 mls/ hr [id number] IV Last administered on 03/20/18at 19:01; Start 03/20/18 at 09:50 Iohexol (OMNIPAQUE 350 INJ (Podiatrist)) 100 ml STK-MED ONCE OTHER ; Start at 13:45; Stop 03/20/18 at 13:46; Status DC Dextrose (D50w (Vial) Inj) 50 ml UNSCH PRN IV PUSH HYPOGLYCEMIA-SEE COMMENTS; Start 03/21/18 at 09:45 Glucagon (Glucagon Inj) 1 mg UNSCH PRN OTHER HYPOGLYCEMIA-SEE COMMENTS; Start 03/21/18 at 09:45 Insulin Aspart (NovoLOG SUPPLEMENTAL SCALE) 1 ACHS SLIDING SCALE SQ Last administered on 03/21/18at 11:15; Start 03/21/18 at 12:00 A/P Problem List: (1) Dizziness ICD Code: R42 - Dizziness and giddiness (2) Elevated troponin ICD Code: R74.8 - Abnormal levels of other serum enzymes (3) Hyponatremia ICD Code: E87.1 - Hypo-osmolality and hyponatremia (4) Leukocytosis ICD Code: D72.829 - Elevated white blood cell count, unspecified (5) HTN (hypertension) ICD Code: I10 - Essential (primary) hypertension Status: Chronic (6) Tobacco abuse ICD Code: Z72.0 - Tobacco use (7) Alcohol abuse ICD Code: F10.10 - Alcohol abuse, uncomplicated Status: Chronic Assessment and Plan 62 years old malle Dizziness: acute onset of dizziness- resolved w/ near syncopal event, likely secondary to underlying ischemia. CT Head w/ no acute findings, images reviewed by me. Check Echo for valvular abnormality. Telemetry. IVF for hydration.= decrease rate. good po Atypical chest pain - Elevated Trop: Trop 0.16, no acute EKG changes, no c/o chest pain only "cramping". HTN: Uncontrolled. BP 205/99, HR 90 on arrival, Metoprolol PO, monitor BP, antihypertensives as needed for BP >180 states history of hypertesnion in the past - was on meds but was DC Echo unremarkable- EF 55-60% ASA, Statin, Metoprolol, NTG/Morphine prn. Add amlodipine 2.5 mg po daily ongoing myocardial perfusion study was positive underwent cardiac catheterization with stenting Dr. Patterson ff Leukocytosis: WBC 12.6, no signs of infection. LIkely reactive CXR w/ no acute findings, U/a negative for UTI. Likely reactive. ff Hyponatremia: Na 128, dehydration/alcohol abuse, resolved TSH normal Hypokalemia- - Improved Alcohol Abuse: Drinks daily but 4-5 beers. denies hhsitory of DTs. CIWA, Seizure Precautions, MVT/Thiamine/Folate replacement. Tobacco Abuse: Pt counselled. Ativan prn. No NicoDerm to avoid further vasoconstriction. DVT Prophylaxis: Heparin sq Social work for DC planning as needed. PT consult today DISCHARGE TO HOME TODAY JULIUS RN AND PT AND CM Discharge Planning DC TO HOME TODAY Problem Qualifiers (1) HTN (hypertension): Qualified Codes: I10 - Essential (primary) hypertension Sohail Ny DO March 21, 2018 15:19
[2018-03-21] MEDS ORDERED: AMLO5 PO (15:25)
[2018-03-21] MEDS ORDERED: ASA325 PO (15:25)
[2018-03-21] MEDS ORDERED: FOLI1TAB6 PO (15:25)
[2018-03-21] MEDS ORDERED: ALBUAER3 INH (15:25)
[2018-03-21] MEDS ORDERED: THIA100 PO (15:25)
[2018-03-21] MEDS ORDERED: METO25TA3 PO (15:25)
[2018-03-21] MEDS ORDERED: NICO21DI25 T-DERMAL (15:25)
[2018-03-21] MEDS ORDERED: SODI1TAB PO (15:25)
[2018-03-21] MEDS ORDERED: SYMB160A INH (15:25)
[2018-03-21] MEDS ORDERED: THERM PO (15:25)
[2018-03-21] MEDS ORDERED: PRAV40TA PO (15:25)
[2018-03-21] MEDS ORDERED: GABA100C4 PO (15:25)
[2018-03-21] MEDS ORDERED: PLAV75TA29 PO (15:25)
--- NOTE | 2018-03-21 15:28 | HHI.DS ---
Discharge Summary Admission Date March 17, 2018 at 22:40 Discharge Date: March 21, 2018 Admitting Diagnosis ACS, near syncope, hyponatremia (1) Dizziness ICD Code: R42 - Dizziness and giddiness Diagnosis: Principal (2) Elevated troponin ICD Code: R74.8 - Abnormal levels of other serum enzymes Diagnosis: Principal (3) Hyponatremia ICD Code: E87.1 - Hypo-osmolality and hyponatremia Diagnosis: Secondary (4) Leukocytosis ICD Code: D72.829 - Elevated white blood cell count, unspecified Diagnosis: Secondary (5) HTN (hypertension) ICD Code: I10 - Essential (primary) hypertension Diagnosis: Secondary Status: Chronic (6) Tobacco abuse ICD Code: Z72.0 - Tobacco use Diagnosis: Secondary (7) Alcohol abuse ICD Code: F10.10 - Alcohol abuse, uncomplicated Diagnosis: Secondary Status: Chronic (8) CAD (coronary artery disease) ICD Code: I25.10 - Atherosclerotic heart disease of [place] coronary artery without angina pectoris Diagnosis: Principal Status: Chronic (9) Hyperlipidemia ICD Code: E78.5 - Hyperlipidemia, unspecified Diagnosis: Secondary Status: Chronic Procedures 03/20/2018 PROCEDURE: Left heart catheterization, selective coronary angiography, left ventriculography, primary stenting of the proximal LAD. PROCEDURE NOTES: The patient was brought to the cardiac catheterization laboratory in a fasting state after having signed informed consent. The right radial region was prepped and draped as per policy and anesthetized with 1% lidocaine. Arterial access was obtained via the right radial artery and a 6-[place] sheath placed. Coronary arteriography was performed using a [place] catheter. Left ventriculography was done using a multipurpose catheter. Percutaneous coronary intervention was done as described below. There were no apparent, immediate complications. HEMODYNAMIC DATA: Left ventricle 110 with an end-diastolic pressure of less than 10. Aorta 99/74 with a mean of 86. There was no significant transvalvular aortic gradient on pullback of the multipurpose catheter. CORONARY ARTERIOGRAPHY: The left main is normal. The left anterior descending has diffuse proximal disease including a 40% lesion proximally and an 80% lesion more distally. The mid to distal LAD overall has minimal to mild diffuse luminal irregularities, resulting in up to 10-15% stenosis. The LAD gives rise to 3 tiny diagonals, the second and third of which have 60-70% ostial stenosis. The left circumflex is a medium-sized, somewhat tortuous vessel with up to 20% stenosis proximally. It gives rise to small obtuse marginals which are free of disease. The right coronary artery is a large, dominant vessel with minimal luminal irregularities proximally. There is a small caliber posterolateral branch, which has 60-70% proximal stenosis. LEFT VENTRICULOGRAPHY: Contrast injection of the left ventricle reveals no segmental wall motion abnormalities. Ejection fraction is estimated at 65%. PERCUTANEOUS CORONARY INTERVENTION DESCRIPTION: Aggrastat was given as per protocol. Adequate heparin was given during the procedure to achieve an ACT greater than 250 seconds. Using a 6-[place] XB 3.5 guiding catheter, the ostium of the left main was reengaged. Using a 0.014 [place] wire the proximal LAD disease was crossed without difficulty and the tip of the wire positioned distally. Primary stenting was done using a 2.5 x 15 mm Resolute [place] stent, which was deployed at 15 atmospheres for 30 seconds. Final angiography shows reduction of the initial stenosis to 0 % residual with no definite evidence for dissection or distal embolization. The patient tolerated the procedure well. There were no apparent, immediate complications. CONCLUSIONS: 1. Moderate to severe two-vessel coronary artery disease. 2. Normal left ventricular function with estimated ejection fraction of 65%. 3. Status post primary stenting of the proximal left anterior descending artery. DISCUSSION: The disease in the proximal posterolateral branch will be treated medically. This branch is small in caliber and supplies a small territory. Arik Patterson MD Brief History - From Admission This is a 62-year-old male with a PMH of HTN, Hyperlipidemia, COPD, Gout, Alcohol Abuse and Tobacco Abuse who presented to the ER w/ complaints of dizziness x1 day. Reports near syncope today w/ left-sided chest "cramping". No nausea, vomiting, headache or vision changes. Denies cough, fever, chills or h/o similar symptoms. On arrival, BP 205/99, HR 90, O2 sat 100% on RA, Afebrile. WBC 12.6. Na 128. Troponin 0.16. INR 1.1 CXR with no acute findings. CT Head negative. CBC/BMP: 03/21/18 0508 03/21/18 0508 Significant Findings Laboratory Tests Test 03/19/18 03:55 03/21/18 05:08 Red Blood Count 4.22 MIL/MM3 (4.50-5.90) HDL Cholesterol 36.8 MG/DL (40.0-60.0) Imaging Last Impressions Myocardial Perfusion Scan Nuc Med 03/18/18 0000 Signed Impressions: CONCLUSION: 1. Moderate area of mild reversibility involving the lateral and inferior wall s concerning for ischemia. 2. Normal ejection fraction. Head CT 03/17/18 0000 Signed Impressions: CONCLUSION: 1. Stable evaluation. 2. No evidence of acute infarct, hemorrhage, mass or edema. Chest X-Ray 03/17/18 0000 Signed Impressions: CONCLUSION: No evidence of acute process. PE at Discharge GENERAL: Awake alert and oriented 3 talkative and cooperative SKIN: Warm and dry. HEAD: Atraumatic. Normocephalic. EYES: Pupils equal and round. No scleral icterus. No injection or drainage. Extraocular muscles intact ENT: No nasal bleeding or discharge. Mucous membranes pink and moist. Tongue midline NECK: Trachea midline. No JVD. Supple CARDIOVASCULAR: Regular rate and rhythm. S1-S2 no S3 or S4 RESPIRATORY: No accessory muscle use. Clear to auscultation. Breath sounds equal bilaterally. GASTROINTESTINAL: Abdomen soft, non-tender, nondistended. Hepatic and splenic margins not palpable. MUSCULOSKELETAL: Extremities without clubbing, cyanosis, or edema. No obvious deformities. NEUROLOGICAL: Awake and alert. No obvious cranial nerve deficits. Motor grossly within normal limits. Five out of 5 muscle strength in the arms and legs. Normal speech. PSYCHIATRIC: Appropriate mood and affect; insight and judgment normal. Hospital Course Patient is status post stenting of the proximal LAD with the [place] resolute stent Currently denies any chest pain or shortness of breath denies any nausea or vomiting will get a.m. labs Hopefully discharge tomorrow A.m. labs if stable discharged home tomorrow 5-30 CLEARED BY CARDIOLOGY FOR DC DC TO HOME TODAYD FOLLOW UP WITH [facility] FOLLOW UP WITH CARDIOLOGY JULIUS RN AND PT AND CM Pt Condition on Discharge: Good Discharge Disposition: Discharge Home Discharge Time: > 30 minutes Discharge Instructions DIET: Follow Instructions for: Heart Healthy Diet, Diabetic Diet Speech Therapy-Diet Recommends: Regular Activities you can perform: Shower Only-No Bath Other Activity Instructions: STOP SMOKING STOP ALCOHOL Follow up Referrals: Cardiology - 4 Weeks with Arik Patterson MD PCP Follow-up - 2-3 Days @ [facility] New Medications: Amlodipine (Norvasc) 5 Mg Tab 5 MG PO DAILY for Blood Pressure Management, #30 TAB Aspirin (Px Aspirin) 325 Mg Tab 325 MG PO DAILY for Blood Clot Prevention, #30 TAB Clopidogrel (Plavix) 75 Mg Tab 75 MG PO DAILY for Blood Clot Prevention, #30 TAB Metoprolol Tartrate (Metoprolol Tartrate) 25 Mg Tab 25 MG PO Q12HR for Blood Pressure Management, #60 TAB Multiple Vitamins W/ Minerals (Thera M Plus) 1 Tab 1 TAB PO DAILY for Alcohol Detox, #31 TAB Pravastatin (Pravachol) 40 Mg Tab 40 MG PO DAILY for Cholesterol Management, #30 TAB Continued Medications: Albuterol 8.5 GM Inh (Proair Hfa 8.5 GM Inh) 90 Mcg/Act Aer 1 PUFF INH Q4H PRN for SHORTNESS OF BREATH, #1 INHALER 0 Refills (This prescription has been renewed) 108 mcg/actuation Budesonide-Formoterol Inh (Symbicort Inh) 160-4.5 Mcg/Act Aero 2 PUFF INH Q12HR for Breathing Treatment, #1 INHALER 0 Refills (This prescription has been renewed) Folic Acid (Folic Acid) 1 Mg Tablet 1 MG PO DAILY for Alcohol Detox, #31 TAB-CAP (This prescription has been renewed ) Gabapentin (Gabapentin) 100 Mg Cap 100 MG PO TID for neuropathy, #93 CAP (This prescription has been renewed) Nicotine (Eq Nicotine) 21 Mg/24 Hour Dis 1 PATCH T-DERMAL DAILY for tobacco use, #14 PATCH (This prescription has been renewed) Sodium Chloride (Sodium Chloride) 1 Gram Tab 1 GM PO BID for low sodium, #60 TAB (This prescription has been renewed) Thiamine HCl (Gnp Vitamin B-1) 100 Mg Tab 100 MG PO DAILY for Alcohol Detox, #31 TAB (This prescription has been renewed) Sohail Ny DO March 21, 2018 15:28
== END 2018-03-21 17:57 | disposition home or self-care (01) | DRG 247 ==
LOC: NEPC 18:17 → NEDA 22:40 → HCIS 23:59
PROVIDERS: ADMIT Hospitalist; ATTEND Hospitalist
PROC: 4A023N7 Measurement of Cardiac Sampling and Pressure, Left Heart, Percutaneous Approach (ICD-10-PCS; 2018-03-20)
PROC: B2111ZZ Fluoroscopy of Multiple Coronary Arteries using Low Osmolar Contrast (ICD-10-PCS; 2018-03-20)
PROC: B2151ZZ Fluoroscopy of Left Heart using Low Osmolar Contrast (ICD-10-PCS; 2018-03-20)
PROC: 027034Z Dilation of Coronary Artery, One Artery with Drug-eluting Intraluminal Device, Percutaneous Approach (ICD-10-PCS; principal; 2018-03-20 12:15)
DX: I25.110 Atherosclerotic heart disease of native coronary artery with unstable angina pectoris (principal); E87.1 Hypo-osmolality and hyponatremia; I10 Essential (primary) hypertension; J44.9 Chronic obstructive pulmonary disease, unspecified; E11.9 Type 2 diabetes mellitus without complications; D72.829 Elevated white blood cell count, unspecified; R55 Syncope and collapse; R74.8 Abnormal levels of other serum enzymes; F17.210 Nicotine dependence, cigarettes, uncomplicated; M10.9 Gout, unspecified; F20.9 Schizophrenia, unspecified; M19.90 Unspecified osteoarthritis, unspecified site; F10.10 Alcohol abuse, uncomplicated; E86.0 Dehydration; E87.6 Hypokalemia; I99.8 Other disorder of circulatory system; E78.2 Mixed hyperlipidemia
CPT/HCPCS: 70450; 71045; 78452; 80048; 80053; 80061; 81001; 82550; 82948; 83036; 83735; 84100; 84439; 84443; 84484; 85002; 85025; 85610; 92928; 93005; 93017; 93306; 93458; 94640; 94664; 99152; 99153; A9502; C1769; C1874; C1887; C1893; J1644; J1815; J2250; J2785; J3010; J3246; J7030; J7040; Q9967

== ENCOUNTER 2018-07-12 10:24 | Inpatient (IN) ==
[2018-07-12] MEDS ORDERED: MethylPREDNISolone Sod Succinate Inj 125 MG/2 ML Vial IV.PUSH ONE (10:57)
--- NOTE | 2018-07-12 11:02 | ED ---
HPI General Chief Complaint: Respiratory Symptoms Stated Complaint: SOB Time Seen by Provider: 07/12/18 10:48 Source: patient Limitations: no limitations History of Present Illness No other complaints at this time. presented with complaint of shortness of breath and chest tightness. He has run out of his albuterol inhaler he has not taking his blood pressure medication on arrival blood pressure 173/87. He reported some nausea.The patient is a 63-year-old male with COPD daily smoker. MD Complaint: shortness of breath Onset (ago): unknown Severity: moderate Consistency/Duration: constant Relieving factors: rest and upright position Exacerbating factors: lying flat and exertion Known history of: COPD and diabetes Associated symptoms: chest pain, cough and orthopnea Treatment prior to arrival: none Related Data Home oxygen amount: none Allergies Allergy/AdvReac Type Severity Reaction Status Date / Time No Known Allergies Allergy Verified 07/12/18 10:43 Review of Systems ROS: all other systems reviewed are negative PMFSH History History Provided By: Patient and Medical Record Medical History Medical History CAD (coronary artery disease) (Acute) COPD (chronic obstructive pulmonary disease) (Acute) Chest pain (Acute) Diabetes (Acute) HTN (hypertension) (Acute) High cholesterol (Acute) Lung nodules (Acute) Pneumonia (Acute) Surgical History Surgical History H/O eye surgery (Acute) H/O heart artery stent (Acute) Hx of tonsillectomy (Acute) S/P bronchoscopy (Acute) Social History Social History Substance History: No History of Abuse (has been told he had a drinking problem before (concerned by aydee, sent to [facility])) Second Hand Smoke Exposure: Yes Smoking Status: Current every day smoker Tobacco Type: Cigarettes (x 40 years) How Often Do You Have a Drink Containing Alcohol: 2 to 4 times a month (mostly beer, sometimes every day 1 beer) Hx Recent Travel: No Recent Travel in [facility] within the Last 8 Weeks: No Recent Out of Country Travel within the Last 8 Weeks: No Exam Narrative Exam Narrative: GENERAL: Alert and oriented in no distress. Unkempt SKIN: Focused skin assessment warm/dry. HEAD: Atraumatic. Normocephalic. EYES: Pupils equal and round. No scleral icterus. No injection or drainage. ENT: No nasal bleeding or discharge. Mucous membranes pink and moist. NECK: Trachea midline. No JVD. CARDIOVASCULAR: Tachycardia with regular rhythm. No murmur appreciated. RESPIRATORY: No accessory muscle use. Clear to auscultation. Breath sounds equal bilaterally. The patient is auto peeping. There is no inspiratory expiratory wheezes but there is poor airflow. GASTROINTESTINAL: Abdomen soft, morbidly obese non-tender, nondistended. Hepatic and splenic margins not palpable. MUSCULOSKELETAL: No obvious deformities. No clubbing. No cyanosis. Bilateral lower extremity pitting edema. NEUROLOGICAL: Awake and alert. No obvious cranial nerve deficits. Motor grossly within normal limits. Normal speech. PSYCHIATRIC: Appropriate mood and affect; insight and judgment normal. Course Reevaluation(s) Reevaluation #1: feels much better at this time after Breathing treatment Time: 12:14 Initial Documented Vital Signs Temperature 97.6 F 07/12/18 10:35 Pulse Rate 103 H 07/12/18 10:35 Respiratory Rate 20 07/12/18 10:35 Blood Pressure 173/87 H 07/12/18 10:35 Pulse Oximetry 98 07/12/18 10:35 Last Documented Vital Signs Temperature 98.2 F 07/12/18 18:22 Pulse Rate 88 07/12/18 18:22 Respiratory Rate 20 07/12/18 18:22 Blood Pressure 184/97 H 07/12/18 18:22 Pulse Oximetry 95 07/12/18 18:22 Medical Decision Making MDM Narrative Medical decision making narrative: COPD/CHF exacerbation on patient coronary artery disease. Improved markedly with breathing treatments. No signs of infectious process at this time. Initial cardiac enzymes and EKG are unremarkable for acute ischemia he will be admitted for further evaluation. Medical Screen Exam Complete: Yes Emergency Medical Condition: Yes Lab Data Result diagrams: 07/12/18 11:25 07/12/18 11:25 Lab Results 07/12/18 07/12/18 07/12/18 Range/Units 11:05 11:25 11:25 WBC 8.5 (4.0-11.0) th/mm3 RBC 4.28 L (4.50-5.90) mil/mm3 Hgb 14.8 (13.0-17.0) gm/dL Hct 42.9 (39.0-51.0) % MCV 100.1 H (80.0-100.0) fL MCH 34.5 H (27.0-34.0) pg MCHC 34.5 (32.0-36.0) % RDW 13.4 (11.6-17.2) % Plt Count 217 (150-450) th/mm3 MPV 6.9 L (7.0-11.0) fL Neut % (Auto) 81.6 H (16.0-70.0) % Lymph % (Auto) 8.8 L (9.0-44.0) % Whitley % (Auto) 9.3 H (0.0-8.0) % Eos % (Auto) 0.1 (0.0-4.0) % Baso % (Auto) 0.2 (0.0-2.0) % Neut # (Auto) 6.9 (1.8-7.7) th/mm3 Lymph # (Auto) 0.7 L (1.0-4.8) th/mm3 Whitley # (Auto) 0.8 (0.0-0.9) th/mm3 Eos # (Auto) 0.0 (0.0-0.4) th/mm3 Baso # (Auto) 0.0 (0.0-0.2) th/mm3 WBC Differential . Differential Comment Auto diff final PT 10.8 (9.8-11.6) sec INR 1.1 Ratio APTT 29.8 (24.3-30.1) sec Puncture Site Right radial Patient Temperature 98.6 O2 Saturation 95 (90-100) % ABG pH 7.49 H (7.380-7.420) ABG pCO2 27 L (38-42) mmHg ABG pO2 91 (61-120) mmHg ABG HCO3 20 L (22-26) mmol/L ABG O2 Content 19.8 (12.0-20.0) Vol % ABG Base Excess -2.6 L (-2-2) mmol/L ABG Methemoglobin 0.7 (0-2) % Charli Test Present Hemoglobin 14.8 (12.0-16.0) G/DL Carboxyhemoglobin 1.9 (0-4) % Inspired O2 21 % Critical Value No Sodium (136-145) meq/L Potassium (3.5-5.1) meq/L Chloride (98-107) meq/L Carbon Dioxide (21.0-32.0) meq/L Anion Gap (5-15) meq/L BUN (7-18) mg/dL Creatinine (0.60-1.30) mg/dL Estimated GFR (>89) mL/min POC Glucose (68-110) mg/dl Random Glucose (74-106) mg/dL Calcium (8.5-10.1) mg/dL Magnesium (1.5-2.5) mg/dL Total Bilirubin (0.2-1.0) mg/dL AST (15-37) U/L ALT (12-78) U/L Alkaline Phosphatase (45-117) U/L Total Creatine Kinase (39-308) U/L CK-MB (CK-2) (0.5-3.6) ng/mL Troponin I (0.02-0.05) ng/mL B-Natriuretic Peptide (0-100) pg/mL Total Protein (6.4-8.2) g/dL Albumin (3.4-5.0) g/dL 07/12/18 07/12/18 07/12/18 Range/Units 11:25 11:25 17:25 WBC (4.0-11.0) th/mm3 RBC (4.50-5.90) mil/mm3 Hgb (13.0-17.0) gm/dL Hct (39.0-51.0) % MCV (80.0-100.0) fL MCH (27.0-34.0) pg MCHC (32.0-36.0) % RDW (11.6-17.2) % Plt Count (150-450) th/mm3 MPV (7.0-11.0) fL Neut % (Auto) (16.0-70.0) % Lymph % (Auto) (9.0-44.0) % Whitley % (Auto) (0.0-8.0) % Eos % (Auto) (0.0-4.0) % Baso % (Auto) (0.0-2.0) % Neut # (Auto) (1.8-7.7) th/mm3 Lymph # (Auto) (1.0-4.8) th/mm3 [place]ley # (Auto) (0.0-0.9) th/mm3 Eos # (Auto) (0.0-0.4) th/mm3 Baso # (Auto) (0.0-0.2) th/mm3 WBC Differential Differential Comment PT (9.8-11.6) sec INR Ratio APTT (24.3-30.1) sec Puncture Site Patient Temperature O2 Saturation (90-100) % ABG pH (7.380-7.420) ABG pCO2 (38-42) mmHg ABG pO2 (61-120) mmHg ABG HCO3 (22-26) mmol/L ABG O2 Content (12.0-20.0) Vol % ABG Base Excess (-2-2) mmol/L ABG Methemoglobin (0-2) % Charli Test Hemoglobin (12.0-16.0) G/DL Carboxyhemoglobin (0-4) % Inspired O2 % Critical Value Sodium 124 L* (136-145) meq/L Potassium 3.8 (3.5-5.1) meq/L Chloride 87 L (98-107) meq/L Carbon Dioxide 21.3 (21.0-32.0) meq/L Anion Gap 16 H (5-15) meq/L BUN 7 (7-18) mg/dL Creatinine 0.75 (0.60-1.30) mg/dL Estimated GFR Greater than 89 (>89) mL/min POC Glucose (68-110) mg/dl Random Glucose 87 (74-106) mg/dL Calcium 8.7 (8.5-10.1) mg/dL Magnesium 1.8 (1.5-2.5) mg/dL Total Bilirubin 1.1 H (0.2-1.0) mg/dL AST 31 (15-37) U/L ALT 36 (12-78) U/L Alkaline Phosphatase 72 (45-117) U/L Total Creatine Kinase 223 (39-308) U/L CK-MB (CK-2) 4.8 H (0.5-3.6) ng/mL Troponin I Less than 0.02 L Less than 0.02 L (0.02-0.05) ng/mL B-Natriuretic Peptide 45 (0-100) pg/mL Total Protein 8.2 (6.4-8.2) g/dL Albumin 4.4 (3.4-5.0) g/dL 07/12/18 Range/Units 17:49 WBC (4.0-11.0) th/mm3 RBC (4.50-5.90) mil/mm3 Hgb (13.0-17.0) gm/dL Hct (39.0-51.0) % MCV (80.0-100.0) fL MCH (27.0-34.0) pg MCHC (32.0-36.0) % RDW (11.6-17.2) % Plt Count (150-450) th/mm3 MPV (7.0-11.0) fL Neut % (Auto) (16.0-70.0) % Lymph % (Auto) (9.0-44.0) % Whitley % (Auto) (0.0-8.0) % Eos % (Auto) (0.0-4.0) % Baso % (Auto) (0.0-2.0) % Neut # (Auto) (1.8-7.7) th/mm3 Lymph # (Auto) (1.0-4.8) th/mm3 [place] # (Auto) (0.0-0.9) th/mm3 Eos # (Auto) (0.0-0.4) th/mm3 Baso # (Auto) (0.0-0.2) th/mm3 WBC Differential Differential Comment PT (9.8-11.6) sec INR Ratio APTT (24.3-30.1) sec Puncture Site Patient Temperature O2 Saturation (90-100) % ABG pH (7.380-7.420) ABG pCO2 (38-42) mmHg ABG pO2 (61-120) mmHg ABG HCO3 (22-26) mmol/L ABG O2 Content (12.0-20.0) Vol % ABG Base Excess (-2-2) mmol/L ABG Methemoglobin (0-2) % Charli Test Hemoglobin (12.0-16.0) G/DL Carboxyhemoglobin (0-4) % Inspired O2 % Critical Value Sodium (136-145) meq/L Potassium (3.5-5.1) meq/L Chloride (98-107) meq/L Carbon Dioxide (21.0-32.0) meq/L Anion Gap (5-15) meq/L BUN (7-18) mg/dL Creatinine (0.60-1.30) mg/dL Estimated GFR (>89) mL/min POC Glucose 174 H (68-110) mg/dl Random Glucose (74-106) mg/dL Calcium (8.5-10.1) mg/dL Magnesium (1.5-2.5) mg/dL Total Bilirubin (0.2-1.0) mg/dL AST (15-37) U/L ALT (12-78) U/L Alkaline Phosphatase (45-117) U/L Total Creatine Kinase (39-308) U/L CK-MB (CK-2) (0.5-3.6) ng/mL Troponin I (0.02-0.05) ng/mL B-Natriuretic Peptide (0-100) pg/mL Total Protein (6.4-8.2) g/dL Albumin (3.4-5.0) g/dL Imaging Data Radiologist's impression: Chest X-Ray 07/12/18 10:57 CONCLUSION: 1. No acute cardiopulmonary disease. 2. Stable chronic compression deformities involving the thoracolumbar spine. Discharge Plan Discharge Disposition Patient Disposition: 30 Still Patient Discharge Condition Condition: Stable Discharge Details Diagnosis: Chest pain, Acute exacerbation of CHF (congestive heart failure), Acute exacerbation of chronic obstructive pulmonary disease (COPD), Pickwickian syndrome Physicians Team ED Provider: Chase Marmolejo Primary Care Provider: [facility] Attending Provider: Tootie Santo Discharge Interventions Interventions: ED Discharge Assessment Last Done: 07/12/18 18:21 Vital Signs Last Done: 07/12/18 11:35 Status ED Status: Left Department Discharge Information Discharge Date/Time: 07/12/18 17:58
[2018-07-12 11:20] LABS: ABG Base Excess -2.6 mmol/L (-2-2); ABG PCO2 27 mmHg (38-42); ABG PO2 91 mmHg (61-120)
[2018-07-12 11:59] LABS: Baso % (Auto) 0.2 % (0.0-2.0); Eos % (Auto) 0.1 % (0.0-4.0); Hematocrit 42.9 % (39.0-51.0); Hemoglobin 14.8 gm/dL (13.0-17.0); Lymph # (Auto) 0.7 th/mm3 (1.0-4.8); Lymph % (Auto) 8.8 % (9.0-44.0); Mean Corpuscular HGB Conc 34.5 % (32.0-36.0); Mean Corpuscular Hemoglobin 34.5 pg (27.0-34.0); Mean Corpuscular Volume 100.1 fL (80.0-100.0); Mean Platelet Volume 6.9 fL (7.0-11.0); Mono # (Auto) 0.8 th/mm3 (0.0-0.9); Mono % (Auto) 9.3 % (0.0-8.0); Neut # (Auto) 6.9 th/mm3 (1.8-7.7); Neut % (Auto) 81.6 % (16.0-70.0); Platelet Count 217 th/mm3 (150-450); Red Blood Count 4.28 mil/mm3 (4.50-5.90); Red Cell Distribution Width 13.4 % (11.6-17.2); White Blood Count 8.5 th/mm3 (4.0-11.0)
[2018-07-12 12:09] LABS: Activated Partial Thrombo Time 29.8 sec (24.3-30.1); INR 1.1 Ratio; Prothrombin Time 10.8 sec (9.8-11.6)
--- NOTE | 2018-07-12 12:10 | XR ---
EXAM DATE: 07/12/2018 12:06 PM EDT AGE/SEX: 63 years / Male INDICATIONS: . Shortness of breath. CLINICAL DATA: This is the patient's initial encounter. Patient reports that signs and symptoms have been present for 2 days and indicates a pain score of 0/10. MEDICAL/SURGICAL HISTORY: . Diabetes. Hypertension. Chronic obstructive pulmonary disease. Non e. COMPARISON: [facility] – [place], CHEST PA & LAT, 11/14/2017. . FINDINGS: PA and lateral views of the chest demonstrate the lungs to be symmetrically aerated without evidence of mass, infiltrate or effusion. The cardiomediastinal contours are unremarkable. There are stable ch ronic compression deformities involving the thoracolumbar spine. CONCLUSION: 1. No acute cardiopulmonary disease. 2. Stable chronic compression deformities involving the thoracolumbar spine. Electronically signed by: Ted Ely MD 07/12/2018 12:09 PM EDT
[2018-07-12 12:33] LABS: Alanine Aminotransferase 36 U/L (12-78); Albumin 4.4 g/dL (3.4-5.0); Alkaline Phosphatase 72 U/L (45-117); Anion Gap 16 meq/L (5-15); Aspartate Aminotransferase 31 U/L (15-37); Blood Urea Nitrogen 7 mg/dL (7-18); Calcium 8.7 mg/dL (8.5-10.1); Carbon Dioxide 21.3 meq/L (21.0-32.0); Chloride 87 meq/L (98-107); Creatine Kinase 223 U/L (39-308); Glomerular Filtration Rate Greater Than 89 mL/min (>89); Glucose,Random 87 mg/dL (74-106); Magnesium 1.8 mg/dL (1.5-2.5); Potassium 3.8 meq/L (3.5-5.1); Total Protein 8.2 g/dL (6.4-8.2)
[2018-07-12 12:39] LABS: Sodium 124 meq/L (136-145)
[2018-07-12 12:54] LABS: Creatine Kinase MB 4.8 ng/mL (0.5-3.6)
--- NOTE | 2018-07-12 15:28 | P.HPFP ---
History of Present Illness Primary Care Physician: [facility] History of Present Illness: 63 y/o M, hx of CAD with stent placement, DM, COPD, and alcohol abuse, comes in with SOB and dizzyness over the last few days. He states he has had trouble walking and feels like he is "bobbling". He states he has had breathing problems for 15 years (including trach in the past) and has continued to have breathing problems. He thinks it is possible he had too many drinks and thats why he was N/V. He has felt dry in the mouth with shallow breathing. Pt has even tried to go outside to get more oxygen. He used to have inhalers but hasn' t been able to find them. Pt continues to smoke 1-2 cigs/day (this is markedly decreased from prior). Pt had 5-6 beers over the 3 days this weekend and is wondering if that has contributed. He has experienced intermittent left-sided chest pain that lasts " for a little bit". Pt described them more as muscle cramps. He does not know for sure why his legs keep giving out but he states he has had difficulties walking for a long time. He has recently put on about 70lbs. Pt is a , was in the [employer]. He sees a PCP at [facility] (has an appt for 07/21, last saw him in April). Pt was supposed to go see a manager of creative services but never got a ride there. - Diagnosis (1) Chest pain (2) Shortness of breath (3) Coronary artery disease (4) Diabetes (5) Hyponatremia (6) History of alcohol use (7) COPD (chronic obstructive pulmonary disease) (8) Hx of multiple pulmonary nodules (9) Nutrition, metabolism, and development symptoms Review of Systems Constitutional: Reports chills, Reports fever(s) (hot flashes earlier today) Eyes: Denies blurry vision Ears, Nose, Mouth, and Throat: Denies nosebleed Cardiovascular: Reports generalized swelling (swollen neck), Denies fainting, Denies fast heart rate, Denies rapid, pounding, or irregular heartbeat Respiratory: Denies chest congestion, Denies cough, Denies coughing up blood Gastrointestinal: Reports abdominal pain, Denies change in bowel habits Genitourinary: Denies blood in urine, Denies urinary frequency Musculoskeletal: Reports body aches Skin/Breast: Denies itching Neurologic: Denies behavioral changes Psychiatric: Denies confusion Endocrine: Denies excessive sweating Hematologic/Lymphatic: Denies easy bruising PMFSH - History History Provided By: Patient, Medical Record - Medical History Medical History: Medical History (Last Updated 07/12/18 @ 15:25 by Rita Marrero MD, R2) CAD (coronary artery disease) COPD (chronic obstructive pulmonary disease) Chest pain Diabetes HTN (hypertension) High cholesterol Lung nodules Pneumonia - Surgical History Surgical History: Surgical History (Last Reviewed 07/12/18 @ 15:25 by Rita Marrero MD, R2) H/O eye surgery H/O heart artery stent Hx of tonsillectomy S/P bronchoscopy - Social History I have reviewed the patient's Social History: Yes - Tobacco History Second Hand Smoke Exposure: Yes Tobacco Use In Past 30 Days: Yes Smoking Status: Current every day smoker Tobacco Type: Cigarettes (x 40 years) - Alcohol History How Often Do You Have a Drink Containing Alcohol: 2 to 4 times a month (mostly beer, sometimes every day 1 beer) - Substance Use History Substance History: No History of Abuse (has been told he had a drinking problem before (concerned by [facility], sent to [facility])) - Travel History History of Recent Travel: No Recent Travel in the [place] Within the Last 8 Weeks: No Recent Travel Out of the Country Within the Last 8 Weeks: No - Immunization History Tetanus Immunization: >5 Years Hx Influenza Vaccine This Season: Yes Medications and Allergies Allergies Allergy/AdvReac Type Severity Reaction Status Date / Time No Known Allergies Allergy Verified 07/12/18 10:43 Exam Vital signs: Vital Signs 07/12/18 10:35 07/12/18 11:35 07/12/18 11:41 Temperature 97.6 F Pulse Rate 103 H 92 H Respiratory Rate 20 28 H Blood Pressure 173/87 H 152/89 H Pulse Oximetry 98 99 99 07/12/18 11:43 07/12/18 14:24 Temperature Pulse Rate 78 81 Respiratory Rate 20 22 Blood Pressure Pulse Oximetry Intake & Output 07/11/18 07/12/18 07/12/18 18:59 06:59 18:59 Weight 117.934 kg Narrative: General: Well-nourished, well-developed, in no acute distress Skin: Intact, no rash present HEENT: Neck supple, no nodules appreciated Cardio: Regular rate and rhythm, no murmurs Chest wall exam: Tenderness to palpation along left sternal border along ribs. Patient states that somewhat reproduces the pain. Respiratory: Clear to auscultation bilaterally, no wheezing, rales, crackles. Abdominal: Normal bowel sounds, soft, nondistended, no tenderness Lower extremities: 2+ edema to below knee. Sensation and motor intact. No lesions or signs of infection. Results - Labs Result diagrams: 07/12/18 11:25 07/12/18 11:25 Abnormal lab results 07/12/18 07/12/18 07/12/18 Range/Units 11:05 11:25 11:25 RBC 4.28 L (4.50-5.90) mil/mm3 MCV 100.1 H (80.0-100.0) fL MCH 34.5 H (27.0-34.0) pg MPV 6.9 L (7.0-11.0) fL Neut % (Auto) 81.6 H (16.0-70.0) % Lymph % (Auto) 8.8 L (9.0-44.0) % [facility] % (Auto) 9.3 H (0.0-8.0) % Lymph # (Auto) 0.7 L (1.0-4.8) th/mm3 ABG pH 7.49 H (7.380-7.420) ABG pCO2 27 L (38-42) mmHg ABG HCO3 20 L (22-26) mmol/L ABG Base Excess -2.6 L (-2-2) mmol/L Sodium 124 L* (136-145) meq/L Chloride 87 L (98-107) meq/L Anion Gap 16 H (5-15) meq/L Total Bilirubin 1.1 H (0.2-1.0) mg/dL CK-MB (CK-2) 4.8 H (0.5-3.6) ng/mL Troponin I Less than 0.02 L (0.02-0.05) ng/mL Short CBC 07/12/18 Range/Units 11:25 WBC 8.5 (4.0-11.0) th/mm3 Hgb 14.8 (13.0-17.0) gm/dL Hct 42.9 (39.0-51.0) % Plt Count 217 (150-450) th/mm3 BMP 07/12/18 11:25 Sodium 124 L* Potassium 3.8 Chloride 87 L Carbon Dioxide 21.3 BUN 7 Creatinine 0.75 Calcium 8.7 Cardiac Enzymes 07/12/18 Range/Units 11:25 Total Creatine Kinase 223 (39-308) U/L CK-MB (CK-2) 4.8 H (0.5-3.6) ng/mL Troponin I Less than 0.02 L (0.02-0.05) ng/mL Liver Function 07/12/18 Range/Units 11:25 Total Bilirubin 1.1 H (0.2-1.0) mg/dL AST 31 (15-37) U/L ALT 36 (12-78) U/L Alkaline Phosphatase 72 (45-117) U/L Albumin 4.4 (3.4-5.0) g/dL - Imaging Impressions Chest X-Ray 07/12/18 10:57 CONCLUSION: 1. No acute cardiopulmonary disease. 2. Stable chronic compression deformities involving the thoracolumbar spine. Caprini VTE Risk Assessment Caprini VTE Risk Assessment: No/Low Risk (score <= 1) Caprini Risk Assessment Model: Point Value = 1 Point Value = 2 Point Value = 3 Point Value = 5 Age 41-60 Minor surgery BMI > 25 kg/m2 Swollen legs Varicose veins or History of unexplained or recurrent spontaneous Oral contraceptives or hormone replacement Sepsis (< 1 month) Serious lung disease, including pneumonia (< 1 month) Abnormal pulmonary function Acute myocardial infarction Congestive heart failure (< 1 month) History of inflammatory bowel disease Medical patient at bed rest Age 61-74 Arthroscopic surgery Major open surgery (> 45 min) Laparoscopic surgery (> 45 min) Malignancy Confined to bed (> 72 hours) Immobilizing plaster cast Central venous access Age >= 75 History of VTE Family history of VTE Factor V Leiden Prothrombin [id number] Lupus anticoagulant Anticardiolipin antibodies Elevated serum homocysteine Heparin-induced thrombocytopenia Other congenital or acquired thrombophilia Stroke (< 1 month) Elective arthroplasty Hip, pelvis, or leg fracture Acute spinal cord injury (< 1 month) Prophylaxis Regimen: Total Risk Factor Score Risk Level Prophylaxis Regimen 0-1 Low Early ambulation 2 Moderate Order ONE of the following: *Sequential Compression Device (SCD) *Heparin 5000 units SQ BID 3-4 Higher Order ONE of the following medications: *Heparin 5000 units SQ TID *Enoxaparin/Lovenox 40 mg SQ daily (WT < 150 kg, CrCl > 30 mL/min) *Enoxaparin/Lovenox 30 mg SQ daily (WT < 150 kg, CrCl > 10-29 mL/min) *Enoxaparin/Lovenox 30 mg SQ BID (WT < 150 kg, CrCl > 30 mL/min) AND/OR *Sequential Compression Device (SCD) 5 or more Highest Order ONE of the following medications: *Heparin 5000 units SQ TID (Preferred with Epidurals) *Enoxaparin/Lovenox 40 mg SQ daily (WT < 150 kg, CrCl > 30 mL/min) *Enoxaparin/Lovenox 30 mg SQ daily (WT < 150 kg, CrCl > 10-29 mL/min) *Enoxaparin/Lovenox 30 mg SQ BID (WT < 150 kg, CrCl > 30 mL/min) AND *Sequential Compression Device (SCD) Assessment and Plan - Assessment (1) Chest pain Code(s): R07.9 - Chest pain, unspecified Status: Acute Plan: poor historian, history of prior AK, pain however got nitroglycerin sublingual in the ED Follow-up troponin 3 Follow-up EKGs 3 Apply Nitropaste as needed or morphine as needed for any chest pain overnight (2) Shortness of breath Code(s): R06.02 - Shortness of breath Status: Acute Plan: Poor historian, history of COPD, shortness of breath relieved by duo nebs in the ED Differential includes COPD versus CHF versus CAD associated Nebs scheduled, albuterol as needed Echocardiogram 02/2018: No abnormalities, EF 55-60% (3) Coronary artery disease Code(s): I25.10 - Atherosclerotic heart disease of [place] coronary artery without angina pectoris Status: Acute Plan: See plan above under chest pain Continue aspirin, statin, metoprolol, amlodipine per chart review Hold Plavix until ACS workup negative (4) Diabetes Code(s): E11.9 - Type 2 diabetes mellitus without complications Status: Acute Plan: Glucose 87 on admission Sliding scale coverage No diabetic medication seen on chart review (5) Hyponatremia Code(s): E87.1 - Hypo-osmolality and hyponatremia Status: Acute Plan: Dehydration/alcohol abuse No symptomsno mental status change, seizure, lethargy from what we can extrapolate Likely chronic hyponatremia Avoid rapid overcorrection, risk of CPM Water restriction of less than 800 mL per 24 hours (6) History of alcohol use Code(s): Z87.898 - Personal history of other specified conditions Status: Acute Plan: [place] protocol provided Continue home folic acid and thiamine (7) COPD (chronic obstructive pulmonary disease) Code(s): J44.9 - Chronic obstructive pulmonary disease, unspecified Status: Acute Plan: Continue duo nebs as above (8) Hx of multiple pulmonary nodules Code(s): Z87.898 - Personal history of other specified conditions Status: Acute Plan: Chest x-ray negative Lung biopsy 07/2017: Bronchial mucosa with moderate chronic inflammation (9) Nutrition, metabolism, and development symptoms Code(s): R63.8 - Other symptoms and signs concerning food and fluid intake Status: Acute Plan: Fluids: Fluid restriction to less than 800 mL per day Electrolytes: CMP and replete as needed Nutrition: Regular diet DVT proph: Lovenox 40 SQ daily
[2018-07-12] MEDS ORDERED: Zolpidem Tartrate 5 MG Tablet PO PRN (16:11)
[2018-07-12] MEDS ORDERED: Bisacodyl 10 MG Supp RECTAL PRN (16:11)
--- NOTE | 2018-07-12 16:32 | P.PNFP ---
Subjective Interval history: This patient was seen, examined and discussed with the medicine B team. This is a 63-year-old male may be who presents with some left lateral chest discomfort, shortness of breath, and difficulty walking over the last few days. This is gotten worse. Also had loose stools today. He is known diabetic, with hypertension and peripheral neuropathy. He does see a doctor at the [facility] most recently in April and thinks he has an upcoming appointment in a few weeks. He has been in this hospital before, and has a couple of stents in his artery. He is a smoker but trying to quit, and drinks beer sometimes 5-6 per day. He lives locally in a rented room. He does not use insulin. Please see H&P for this admission for additional historical details which were difficult to obtain. He does report a family history of diabetes. He is disabled from a accident relative to his left eye. Started smoking around age 21. As noted he drinks alcohol regularly but denies being an alcoholic. Review of systems was essentially positive although quite vague, difficult to get him pin down to specifics. Results - Labs Result diagrams: 07/12/18 11:25 07/12/18 11:25 Abnormal lab results 07/12/18 07/12/18 07/12/18 Range/Units 11:05 11:25 11:25 RBC 4.28 L (4.50-5.90) mil/mm3 MCV 100.1 H (80.0-100.0) fL MCH 34.5 H (27.0-34.0) pg MPV 6.9 L (7.0-11.0) fL Neut % (Auto) 81.6 H (16.0-70.0) % Lymph % (Auto) 8.8 L (9.0-44.0) % [place] % (Auto) 9.3 H (0.0-8.0) % Lymph # (Auto) 0.7 L (1.0-4.8) th/mm3 ABG pH 7.49 H (7.380-7.420) ABG pCO2 27 L (38-42) mmHg ABG HCO3 20 L (22-26) mmol/L ABG Base Excess -2.6 L (-2-2) mmol/L Sodium 124 L* (136-145) meq/L Chloride 87 L (98-107) meq/L Anion Gap 16 H (5-15) meq/L Total Bilirubin 1.1 H (0.2-1.0) mg/dL CK-MB (CK-2) 4.8 H (0.5-3.6) ng/mL Troponin I Less than 0.02 L (0.02-0.05) ng/mL Short CBC 07/12/18 Range/Units 11:25 WBC 8.5 (4.0-11.0) th/mm3 Hgb 14.8 (13.0-17.0) gm/dL Hct 42.9 (39.0-51.0) % Plt Count 217 (150-450) th/mm3 BMP 07/12/18 11:25 Sodium 124 L* Potassium 3.8 Chloride 87 L Carbon Dioxide 21.3 BUN 7 Creatinine 0.75 Calcium 8.7 Cardiac Enzymes 07/12/18 Range/Units 11:25 Total Creatine Kinase 223 (39-308) U/L CK-MB (CK-2) 4.8 H (0.5-3.6) ng/mL Troponin I Less than 0.02 L (0.02-0.05) ng/mL Liver Function 07/12/18 Range/Units 11:25 Total Bilirubin 1.1 H (0.2-1.0) mg/dL AST 31 (15-37) U/L ALT 36 (12-78) U/L Alkaline Phosphatase 72 (45-117) U/L Albumin 4.4 (3.4-5.0) g/dL - Imaging Impressions Chest X-Ray 07/12/18 10:57 CONCLUSION: 1. No acute cardiopulmonary disease. 2. Stable chronic compression deformities involving the thoracolumbar spine. Physical Exam Vital signs: Vital Signs 07/12/18 10:35 07/12/18 11:35 07/12/18 11:41 Temperature 97.6 F Pulse Rate 103 H 92 H Respiratory Rate 20 28 H Blood Pressure 173/87 H 152/89 H Pulse Oximetry 98 99 99 07/12/18 11:43 07/12/18 14:24 Temperature Pulse Rate 78 81 Respiratory Rate 20 22 Blood Pressure Pulse Oximetry Intake & Output 07/11/18 07/12/18 07/12/18 18:59 06:59 18:59 Weight 117.934 kg - Additional findings Additional findings: Patient is alert, interactive, pleasant but somewhat vague in his responses. Disheveled in appearance. Skin is warm and dry Neck is supple with a little tenderness on the right submandibular area. Scar from previous tracheostomy. Oral mucous membranes pink and moist, he is edentulous Heart is regular rhythm little tachycardic and distant Lungs clear throughout Abdomen is protuberant, bowel sounds present, nontender to palpation Chest wall slightly tender over the left lateral rib area Extremities show cool feet with palpable peripheral pulses in the dorsalis pedis and posterior tibial areas. Toenails are long and unkempt. Assessment and Plan - Assessment and Plan Patient with chest discomfort, some shortness of breath, peripheral neuropathy and hyponatremia here to rule out ACS. Discussed Condition With: Medicine B team Discharge Planning: We will ask case management to assist with discharge arrangements and a bus pass - Attending Attestation Patient was seen, examined, and discussed with the medicine B team. See orders. I agree with the plan.
[2018-07-12] MEDS ORDERED: Dextrose 50% in Water 50 ML Vial IV.PUSH PRN (16:40)
[2018-07-12] MEDS ORDERED: Haloperidol Inj 5 MG/ML Ampul IV.PUSH PRN (16:54)
[2018-07-12] MEDS ORDERED: LORazepam 1 MG Tablet PO PRN (16:54)
[2018-07-12 17:58] LABS: Bilirubin,Urine Negative (Negative); Clarity,Urine Clear (Clear); Color,Urine Yellow (Yellw/Straw); Glucose,Urine (UA) Negative (Negative); Leukocyte Esterase,Urine Negative (Negative); Nitrite,Urine Negative (Negative); Specific Gravity,Urine 1.005 (1.002-1.035); Squamous Epithelial Cell,Urine 1 /hpf (0-5)
[2018-07-12] MEDS ORDERED: Enoxaparin Inj 40 MG/0.4 ML Syringe SQ SCH (18:00)
[2018-07-12] MEDS: Gabapentin 100 MG Capsule PO SCH (18:32)
[2018-07-12] MEDS: Insulin NovoLOG Aspart Correctional Sugar Inj SQ SCH ×2 (18:33→20:47)
[2018-07-12] MEDS: Folic Acid 1 MG Tablet PO SCH (19:02)
[2018-07-12] MEDS: Metoprolol Tartrate 25 MG Tablet PO SCH (20:37)
[2018-07-12] MEDS: Budesonide-Formoterol 160/4.5 MCG 6 GM Inhaler INH SCH (22:29)
[2018-07-12] MEDS ORDERED: Acetaminophen 500 MG Tablet PO PRN (22:39)
[2018-07-12] MEDS: Insulin Detemir Inj 1,000 UNIT/10 ML Vial SQ SCH (23:01)
[2018-07-13 00:37] LABS: Anion Gap 9 meq/L (5-15); Blood Urea Nitrogen 12 mg/dL (7-18); Calcium 8.3 mg/dL (8.5-10.1); Carbon Dioxide 26.5 meq/L (21.0-32.0); Chloride 95 meq/L (98-107); Glomerular Filtration Rate 89 mL/min (>89); Glucose,Random 258 mg/dL (74-106); Potassium 4.1 meq/L (3.5-5.1); Sodium 130 meq/L (136-145)
[2018-07-13] MEDS: Insulin NovoLOG Aspart Correctional Sugar Inj SQ SCH ×3 (03:07→13:23)
[2018-07-13 04:59] LABS: Baso % (Auto) 0.2 % (0.0-2.0); Hematocrit 41.1 % (39.0-51.0); Hemoglobin 14.5 gm/dL (13.0-17.0); Lymph # (Auto) 0.5 th/mm3 (1.0-4.8); Lymph % (Auto) 6.4 % (9.0-44.0); Mean Corpuscular HGB Conc 35.3 % (32.0-36.0); Mean Corpuscular Hemoglobin 35.1 pg (27.0-34.0); Mean Corpuscular Volume 99.6 fL (80.0-100.0); Mean Platelet Volume 7.2 fL (7.0-11.0); Mono # (Auto) 0.7 th/mm3 (0.0-0.9); Mono % (Auto) 9.8 % (0.0-8.0); Neut % (Auto) 83.6 % (16.0-70.0); Platelet Count 193 th/mm3 (150-450); Red Blood Count 4.13 mil/mm3 (4.50-5.90); Red Cell Distribution Width 13.1 % (11.6-17.2); White Blood Count 7.2 th/mm3 (4.0-11.0)
[2018-07-13 05:36] LABS: Alanine Aminotransferase 32 U/L (12-78); Albumin 3.8 g/dL (3.4-5.0); Alkaline Phosphatase 64 U/L (45-117); Anion Gap 10 meq/L (5-15); Aspartate Aminotransferase 27 U/L (15-37); Blood Urea Nitrogen 11 mg/dL (7-18); Calcium 8.5 mg/dL (8.5-10.1); Carbon Dioxide 23.3 meq/L (21.0-32.0); Chloride 99 meq/L (98-107); Glomerular Filtration Rate Greater Than 89 mL/min (>89); Glucose,Random 157 mg/dL (74-106); Potassium 3.9 meq/L (3.5-5.1); Sodium 132 meq/L (136-145); Total Protein 7.7 g/dL (6.4-8.2)
[2018-07-13] MEDS ORDERED: Aspirin 325 MG Tablet PO SCH (09:00)
[2018-07-13] MEDS ORDERED: amLODIPine 5 MG Tablet PO SCH (09:00)
[2018-07-13] MEDS: Gabapentin 100 MG Capsule PO SCH ×2 (09:52→13:23)
[2018-07-13] MEDS: Metoprolol Tartrate 25 MG Tablet PO SCH (09:52)
[2018-07-13] MEDS: Folic Acid 1 MG Tablet PO SCH (09:52)
[2018-07-13] MEDS: Insulin Detemir Inj 1,000 UNIT/10 ML Vial SQ SCH (09:55)
[2018-07-13] MEDS: Budesonide-Formoterol 160/4.5 MCG 6 GM Inhaler INH SCH (09:56)
[2018-07-13 10:51] LABS: Amphetamine Screen,Urine Neg (Neg); Barbiturate Screen,Urine Neg (Neg); Cannabinoid Screen,Urine Neg (Neg); Cocaine Screen,Urine Neg (Neg)
[2018-07-13 10:52] LABS: Opiate Screen,Urine Neg (Neg)
--- NOTE | 2018-07-13 11:14 | P.PNFP ---
Subjective Interval history: Seen and examined bedside this morning. Patient denies any further chest pain. He is feeling well and feels 100% his normal self. He denies any acute events overnight. No chest pain/shortness of breath/dizziness. Eating and drinking without difficulty. He continues to complain of a nodule under his left nipple that has been there for many months. He would like us to feel it. He has not yet gone to PCP for this problem. <Rita Marrero - 07/13/18 11:27> Results - Labs Result diagrams: 07/13/18 04:26 07/13/18 04:26 <Tootie Santo - 07/13/18 12:44> Abnormal lab results 07/12/18 07/12/18 07/12/18 Range/Units 11:25 17:25 17:49 RBC (4.50-5.90) mil/mm3 MCH (27.0-34.0) pg Neut % (Auto) (16.0-70.0) % Lymph % (Auto) (9.0-44.0) % [place] % (Auto) (0.0-8.0) % Lymph # (Auto) (1.0-4.8) th/mm3 Sodium (136-145) meq/L Chloride (98-107) meq/L POC Glucose 174 H (68-110) mg/dl Random Glucose (74-106) mg/dL Calcium (8.5-10.1) mg/dL CK-MB (CK-2) 4.8 H (0.5-3.6) ng/mL Troponin I Less than 0.02 L (0.02-0.05) ng/mL B-Natriuretic Peptide (0-100) pg/mL 07/12/18 07/12/18 07/12/18 Range/Units 20:40 20:42 22:28 RBC (4.50-5.90) mil/mm3 MCH (27.0-34.0) pg Neut % (Auto) (16.0-70.0) % Lymph % (Auto) (9.0-44.0) % [place] % (Auto) (0.0-8.0) % Lymph # (Auto) (1.0-4.8) th/mm3 Sodium (136-145) meq/L Chloride (98-107) meq/L POC Glucose Greater than 600 H* 528 H* 352 H (68-110) mg/dl Random Glucose (74-106) mg/dL Calcium (8.5-10.1) mg/dL CK-MB (CK-2) (0.5-3.6) ng/mL Troponin I (0.02-0.05) ng/mL B-Natriuretic Peptide (0-100) pg/mL 07/12/18 07/13/18 07/13/18 Range/Units 23:34 03:03 04:26 RBC 4.13 L (4.50-5.90) mil/mm3 MCH 35.1 H (27.0-34.0) pg Neut % (Auto) 83.6 H (16.0-70.0) % Lymph % (Auto) 6.4 L (9.0-44.0) % [place] % (Auto) 9.8 H (0.0-8.0) % Lymph # (Auto) 0.5 L (1.0-4.8) th/mm3 Sodium 130 L (136-145) meq/L Chloride 95 L D (98-107) meq/L POC Glucose 227 H (68-110) mg/dl Random Glucose 258 H D (74-106) mg/dL Calcium 8.3 L (8.5-10.1) mg/dL CK-MB (CK-2) (0.5-3.6) ng/mL Troponin I Less than 0.02 L (0.02-0.05) ng/mL B-Natriuretic Peptide (0-100) pg/mL 07/13/18 07/13/18 07/13/18 Range/Units 04:26 04:26 07:59 RBC (4.50-5.90) mil/mm3 MCH (27.0-34.0) pg Neut % (Auto) (16.0-70.0) % Lymph % (Auto) (9.0-44.0) % [place] % (Auto) (0.0-8.0) % Lymph # (Auto) (1.0-4.8) th/mm3 Sodium 132 L (136-145) meq/L Chloride (98-107) meq/L POC Glucose 241 H (68-110) mg/dl Random Glucose 157 H D (74-106) mg/dL Calcium (8.5-10.1) mg/dL CK-MB (CK-2) (0.5-3.6) ng/mL Troponin I (0.02-0.05) ng/mL B-Natriuretic Peptide 132 H (0-100) pg/mL 07/13/18 Range/Units 11:53 RBC (4.50-5.90) mil/mm3 MCH (27.0-34.0) pg Neut % (Auto) (16.0-70.0) % Lymph % (Auto) (9.0-44.0) % [place] % (Auto) (0.0-8.0) % Lymph # (Auto) (1.0-4.8) th/mm3 Sodium (136-145) meq/L Chloride (98-107) meq/L POC Glucose 142 H (68-110) mg/dl Random Glucose (74-106) mg/dL Calcium (8.5-10.1) mg/dL CK-MB (CK-2) (0.5-3.6) ng/mL Troponin I (0.02-0.05) ng/mL B-Natriuretic Peptide (0-100) pg/mL Short CBC 07/13/18 Range/Units 04:26 WBC 7.2 (4.0-11.0) th/mm3 Hgb 14.5 (13.0-17.0) gm/dL Hct 41.1 (39.0-51.0) % Plt Count 193 (150-450) th/mm3 BMP 07/12/18 07/13/18 23:34 04:26 Sodium 130 L 132 L Potassium 4.1 3.9 Chloride 95 L D 99 Carbon Dioxide 26.5 23.3 BUN 12 11 Creatinine 0.87 0.67 Calcium 8.3 L 8.5 Cardiac Enzymes 07/12/18 07/12/18 07/12/18 Range/Units 11:25 17:25 23:34 CK-MB (CK-2) 4.8 H (0.5-3.6) ng/mL Troponin I Less than 0.02 L Less than 0.02 L (0.02-0.05) ng/mL Liver Function 07/13/18 Range/Units 04:26 Total Bilirubin 0.5 (0.2-1.0) mg/dL AST 27 (15-37) U/L ALT 32 (12-78) U/L Alkaline Phosphatase 64 (45-117) U/L Albumin 3.8 D (3.4-5.0) g/dL Urine 07/12/18 Range/Units 17:15 Urine Color Yellow (Yellw/Straw) Urine Clarity Clear (Clear) Urine pH 6.0 (5.0-8.5) Ur Specific [place] 1.005 (1.002-1.035) Urine Protein Negative (Neg-Trace) mg/dL Urine Glucose (UA) Negative (Negative) mg/dL <Tootie Santo - 07/13/18 12:44> Abnormal lab results 07/12/18 07/12/18 07/12/18 Range/Units 11:05 11:25 11:25 RBC 4.28 L (4.50-5.90) mil/mm3 MCV 100.1 H (80.0-100.0) fL MCH 34.5 H (27.0-34.0) pg MPV 6.9 L (7.0-11.0) fL Neut % (Auto) 81.6 H (16.0-70.0) % Lymph % (Auto) 8.8 L (9.0-44.0) % [place] % (Auto) 9.3 H (0.0-8.0) % Lymph # (Auto) 0.7 L (1.0-4.8) th/mm3 ABG pH 7.49 H (7.380-7.420) ABG pCO2 27 L (38-42) mmHg ABG HCO3 20 L (22-26) mmol/L ABG Base Excess -2.6 L (-2-2) mmol/L Sodium 124 L* (136-145) meq/L Chloride 87 L (98-107) meq/L Anion Gap 16 H (5-15) meq/L POC Glucose (68-110) mg/dl Random Glucose (74-106) mg/dL Calcium (8.5-10.1) mg/dL Total Bilirubin 1.1 H (0.2-1.0) mg/dL CK-MB (CK-2) 4.8 H (0.5-3.6) ng/mL Troponin I Less than 0.02 L (0.02-0.05) ng/mL B-Natriuretic Peptide (0-100) pg/mL 07/12/18 07/12/18 07/12/18 Range/Units 17:25 17:49 20:40 RBC (4.50-5.90) mil/mm3 MCV (80.0-100.0) fL MCH (27.0-34.0) pg MPV (7.0-11.0) fL Neut % (Auto) (16.0-70.0) % Lymph % (Auto) (9.0-44.0) % [place] % (Auto) (0.0-8.0) % Lymph # (Auto) (1.0-4.8) th/mm3 ABG pH (7.380-7.420) ABG pCO2 (38-42) mmHg ABG HCO3 (22-26) mmol/L ABG Base Excess (-2-2) mmol/L Sodium (136-145) meq/L Chloride (98-107) meq/L Anion Gap (5-15) meq/L POC Glucose 174 H Greater than 600 H* (68-110) mg/dl Random Glucose (74-106) mg/dL Calcium (8.5-10.1) mg/dL Total Bilirubin (0.2-1.0) mg/dL CK-MB (CK-2) (0.5-3.6) ng/mL Troponin I Less than 0.02 L (0.02-0.05) ng/mL B-Natriuretic Peptide (0-100) pg/mL 07/12/18 07/12/18 07/12/18 Range/Units 20:42 22:28 23:34 RBC (4.50-5.90) mil/mm3 MCV (80.0-100.0) fL MCH (27.0-34.0) pg MPV (7.0-11.0) fL Neut % (Auto) (16.0-70.0) % Lymph % (Auto) (9.0-44.0) % [place] % (Auto) (0.0-8.0) % Lymph # (Auto) (1.0-4.8) th/mm3 ABG pH (7.380-7.420) ABG pCO2 (38-42) mmHg ABG HCO3 (22-26) mmol/L ABG Base Excess (-2-2) mmol/L Sodium 130 L (136-145) meq/L Chloride 95 L D (98-107) meq/L Anion Gap (5-15) meq/L POC Glucose 528 H* 352 H (68-110) mg/dl Random Glucose 258 H D (74-106) mg/dL Calcium 8.3 L (8.5-10.1) mg/dL Total Bilirubin (0.2-1.0) mg/dL CK-MB (CK-2) (0.5-3.6) ng/mL Troponin I Less than 0.02 L (0.02-0.05) ng/mL B-Natriuretic Peptide (0-100) pg/mL 07/13/18 07/13/18 07/13/18 Range/Units 03:03 04:26 04:26 RBC 4.13 L (4.50-5.90) mil/mm3 MCV (80.0-100.0) fL MCH 35.1 H (27.0-34.0) pg MPV (7.0-11.0) fL Neut % (Auto) 83.6 H (16.0-70.0) % Lymph % (Auto) 6.4 L (9.0-44.0) % [place] % (Auto) 9.8 H (0.0-8.0) % Lymph # (Auto) 0.5 L (1.0-4.8) th/mm3 ABG pH (7.380-7.420) ABG pCO2 (38-42) mmHg ABG HCO3 (22-26) mmol/L ABG Base Excess (-2-2) mmol/L Sodium 132 L (136-145) meq/L Chloride (98-107) meq/L Anion Gap (5-15) meq/L POC Glucose 227 H (68-110) mg/dl Random Glucose 157 H D (74-106) mg/dL Calcium (8.5-10.1) mg/dL Total Bilirubin (0.2-1.0) mg/dL CK-MB (CK-2) (0.5-3.6) ng/mL Troponin I (0.02-0.05) ng/mL B-Natriuretic Peptide (0-100) pg/mL 07/13/18 07/13/18 Range/Units 04:26 07:59 RBC (4.50-5.90) mil/mm3 MCV (80.0-100.0) fL MCH (27.0-34.0) pg MPV (7.0-11.0) fL Neut % (Auto) (16.0-70.0) % Lymph % (Auto) (9.0-44.0) % [place] % (Auto) (0.0-8.0) % Lymph # (Auto) (1.0-4.8) th/mm3 ABG pH (7.380-7.420) ABG pCO2 (38-42) mmHg ABG HCO3 (22-26) mmol/L ABG Base Excess (-2-2) mmol/L Sodium (136-145) meq/L Chloride (98-107) meq/L Anion Gap (5-15) meq/L POC Glucose 241 H (68-110) mg/dl Random Glucose (74-106) mg/dL Calcium (8.5-10.1) mg/dL Total Bilirubin (0.2-1.0) mg/dL CK-MB (CK-2) (0.5-3.6) ng/mL Troponin I (0.02-0.05) ng/mL B-Natriuretic Peptide 132 H (0-100) pg/mL Short CBC 07/12/18 07/13/18 Range/Units 11:25 04:26 WBC 8.5 7.2 (4.0-11.0) th/mm3 Hgb 14.8 14.5 (13.0-17.0) gm/dL Hct 42.9 41.1 (39.0-51.0) % Plt Count 217 193 (150-450) th/mm3 BMP 07/12/18 07/12/18 07/13/18 11:25 23:34 04:26 Sodium 124 L* 130 L 132 L Potassium 3.8 4.1 3.9 Chloride 87 L 95 L D 99 Carbon Dioxide 21.3 26.5 23.3 BUN 7 12 11 Creatinine 0.75 0.87 0.67 Calcium 8.7 8.3 L 8.5 Cardiac Enzymes 07/12/18 07/12/18 07/12/18 Range/Units 11:25 17:25 23:34 Total Creatine Kinase 223 (39-308) U/L CK-MB (CK-2) 4.8 H (0.5-3.6) ng/mL Troponin I Less than 0.02 L Less than 0.02 L Less than 0.02 L (0.02-0.05) ng/mL Liver Function 07/12/18 07/13/18 Range/Units 11:25 04:26 Total Bilirubin 1.1 H 0.5 (0.2-1.0) mg/dL AST 31 27 (15-37) U/L ALT 36 32 (12-78) U/L Alkaline Phosphatase 72 64 (45-117) U/L Albumin 4.4 3.8 D (3.4-5.0) g/dL Urine 07/12/18 Range/Units 17:15 Urine Color Yellow (Yellw/Straw) Urine Clarity Clear (Clear) Urine pH 6.0 (5.0-8.5) Ur Specific [place] 1.005 (1.002-1.035) Urine Protein Negative (Neg-Trace) mg/dL Urine Glucose (UA) Negative (Negative) mg/dL <Rita Marrero - 07/13/18 11:14> - Imaging Impressions Chest X-Ray 07/12/18 10:57 CONCLUSION: 1. No acute cardiopulmonary disease. 2. Stable chronic compression deformities involving the thoracolumbar spine. <Rita Marrero - 07/13/18 11:14> Physical Exam Vital signs: Vital Signs 07/12/18 14:24 07/12/18 16:05 07/12/18 17:00 Temperature Pulse Rate 81 65 Respiratory Rate 22 19 Blood Pressure 161/102 H 141/73 H Pulse Oximetry 99 98 07/12/18 17:37 07/12/18 18:22 07/12/18 20:00 Temperature 98.2 F 98.1 F Pulse Rate 87 88 81 Respiratory Rate 16 20 20 Blood Pressure 168/82 H 184/97 H 162/75 H Pulse Oximetry 96 95 96 07/12/18 20:24 07/12/18 20:25 07/12/18 23:38 Temperature Pulse Rate 88 71 Respiratory Rate 20 19 Blood Pressure Pulse Oximetry 95 99 07/12/18 23:49 07/13/18 00:37 07/13/18 03:39 Temperature 97.8 F Pulse Rate 73 70 79 Respiratory Rate 18 18 Blood Pressure 150/72 H Pulse Oximetry 93 L 98 07/13/18 04:39 07/13/18 08:00 07/13/18 08:32 Temperature 97.9 F 98.0 F Pulse Rate 66 73 73 Respiratory Rate 21 17 16 Blood Pressure 134/68 118/66 Pulse Oximetry 97 94 L 07/13/18 12:00 07/13/18 12:42 Temperature 97.8 F Pulse Rate 72 72 Respiratory Rate 17 15 Blood Pressure 125/74 Pulse Oximetry 99 Intake & Output 07/12/18 07/13/18 07/13/18 18:59 06:59 18:59 Intake Total 380 / 380 Output Total 600 / 600 Balance -600 / -600 380 / 380 Weight 117.934 kg 117.9 kg Intake: Oral 380 / 380 Output: Urine 600 / 600 Other: # Voids 2 Date of Last Bowel Movement 07/12/18 <Emili Santoan - 07/13/18 12:44> Vital Signs 07/12/18 11:35 07/12/18 11:41 07/12/18 11:43 Temperature Pulse Rate 92 H 78 Respiratory Rate 28 H 20 Blood Pressure 152/89 H 152/89 H Pulse Oximetry 99 99 98 07/12/18 14:24 07/12/18 16:05 07/12/18 17:00 Temperature Pulse Rate 81 65 Respiratory Rate 22 19 Blood Pressure 161/102 H 141/73 H Pulse Oximetry 99 98 07/12/18 17:37 07/12/18 18:22 07/12/18 20:00 Temperature 98.2 F 98.1 F Pulse Rate 87 88 81 Respiratory Rate 16 20 20 Blood Pressure 168/82 H 184/97 H 162/75 H Pulse Oximetry 96 95 96 07/12/18 20:24 07/12/18 20:25 07/12/18 23:38 Temperature Pulse Rate 88 71 Respiratory Rate 20 19 Blood Pressure Pulse Oximetry 95 99 07/12/18 23:49 07/13/18 00:37 07/13/18 03:39 Temperature 97.8 F Pulse Rate 73 70 79 Respiratory Rate 18 18 Blood Pressure 150/72 H Pulse Oximetry 93 L 98 07/13/18 04:39 07/13/18 08:00 07/13/18 08:32 Temperature 97.9 F 98.0 F Pulse Rate 66 73 73 Respiratory Rate 21 17 16 Blood Pressure 134/68 118/66 Pulse Oximetry 97 94 L Intake & Output 07/12/18 07/13/18 07/13/18 18:59 06:59 18:59 Intake Total 380 / 380 Output Total 600 / 600 Balance -600 / -600 380 / 380 Weight 117.934 kg 117.9 kg Intake: Oral 380 / 380 Output: Urine 600 / 600 Other: # Voids 2 Date of Last Bowel Movement 07/12/18 <Rita Marrero - 07/13/18 11:14> Narrative: General: Well-nourished, well-developed, in no acute distress. Morbid obesity and gynecomastia apparent. Skin: Intact, no rash present HEENT: Neck supple, no nodules appreciated Cardio: Regular rate and rhythm, no murmurs Respiratory: Clear to auscultation bilaterally. Mild wheezing in middle and lower lung lobes equal bilaterally. Abdominal: Normal bowel sounds, soft, nondistended, no tenderness <Rita Marrero - 07/13/18 11:27> Assessment and Plan - Assessment (1) Chest pain Code(s): R07.9 - Chest pain, unspecified Status: Acute (2) Shortness of breath Code(s): R06.02 - Shortness of breath Status: Acute (3) Coronary artery disease Code(s): I25.10 - Atherosclerotic heart disease of [place] coronary artery without angina pectoris Status: Acute (4) Diabetes Code(s): E11.9 - Type 2 diabetes mellitus without complications Status: Acute (5) Hyponatremia Code(s): E87.1 - Hypo-osmolality and hyponatremia Status: Acute (6) History of alcohol use Code(s): Z87.898 - Personal history of other specified conditions Status: Acute (7) COPD (chronic obstructive pulmonary disease) Code(s): J44.9 - Chronic obstructive pulmonary disease, unspecified Status: Acute (8) Hx of multiple pulmonary nodules Code(s): Z87.898 - Personal history of other specified conditions Status: Acute (9) Nutrition, metabolism, and development symptoms Code(s): R63.8 - Other symptoms and signs concerning food and fluid intake Status: Acute <Tootie Santo - 07/13/18 12:44> (1) Chest pain Code(s): R07.9 - Chest pain, unspecified Status: Acute Plan: poor historian, history of prior ND, pain however got nitroglycerin sublingual in the ED ACS workup negative (2) Shortness of breath Code(s): R06.02 - Shortness of breath Status: Acute Plan: Poor historian, history of COPD, shortness of breath relieved by duo nebs Likely COPD related, possibly BELKYS component as well Duo nebs have greatly relieved his symptoms -We will check with case management to see if we can get duo nebs as outpatient , [facility]? Echocardiogram 02/2018: No abnormalities, EF 55-60% (3) Coronary artery disease Code(s): I25.10 - Atherosclerotic heart disease of [place] coronary artery without angina pectoris Status: Acute Plan: See plan above under chest pain Continue aspirin, statin, metoprolol, amlodipine per chart review Okay to continue Plavix (4) Diabetes Code(s): E11.9 - Type 2 diabetes mellitus without complications Status: Acute Plan: Glucose 87 on admission, increased to over 600 overnight, 241 this morning Levemir 10 units twice daily and insulin sliding scale administered overnight Patient likely very uncontrolled diabetic not on any medications, needs to check blood glucose at home and take diabetic medications -Plan to DC on metformin p.o. with follow-up with PCP, and BG checks (5) Hyponatremia Code(s): E87.1 - Hypo-osmolality and hyponatremia Status: Acute Plan: Resolved with fluid restriction. Dehydration/alcohol abuse No symptomsno mental status change, seizure, lethargy from what we can extrapolate Likely chronic hyponatremia Avoid rapid overcorrection, risk of CPM Water restriction of less than 800 mL per 24 hours (6) History of alcohol use Code(s): Z87.898 - Personal history of other specified conditions Status: Acute Plan: [facility] provided Continue home folic acid and thiamine (7) COPD (chronic obstructive pulmonary disease) Code(s): J44.9 - Chronic obstructive pulmonary disease, unspecified Status: Acute Plan: Continue duo nebs as above (8) Hx of multiple pulmonary nodules Code(s): Z87.898 - Personal history of other specified conditions Status: Acute Plan: Chest x-ray negative Lung biopsy 07/2017: Bronchial mucosa with moderate chronic inflammation (9) Nutrition, metabolism, and development symptoms Code(s): R63.8 - Other symptoms and signs concerning food and fluid intake Status: Acute Plan: Fluids: Fluid restriction to less than 800 mL per day Electrolytes: CMP and replete as needed Nutrition: Regular diet DVT proph: Lovenox 40 SQ daily <Rita Marrero - 07/13/18 11:32> - Assessment and Plan Patient with chest discomfort, some shortness of breath, peripheral neuropathy and hyponatremia here to rule out ACS. <Rita Marrero - 07/13/18 11:14> Discharge Planning: Discharge discussed with case management who will assist patient in getting transportation [facility], patient will be discharged on medications that are affordable and available, will write prescriptions for home medications on previous chart review <Rita Marrero - 07/13/18 11:40> - Attending Attestation This patient was seen, examined and discussed with the medicine B team. I agree with the findings and the plan. <Tootie Santo - 07/13/18 12:44> <Rita Marrero - Last Filed: 07/13/18 11:32> (1) Chest pain Qualifiers: Chest pain type: unspecified Qualified Code(s): R07.9 - Chest pain, unspecified <Tootie Santo - Last Filed: 07/13/18 12:44> (1) Chest pain Qualifiers: Chest pain type: unspecified Qualified Code(s): R07.9 - Chest pain, unspecified <RafaelrebeccaRita - Last Filed: 07/13/18 11:32> (1) Chest pain Qualifiers: Chest pain type: unspecified Qualified Code(s): R07.9 - Chest pain, unspecified <Tootie Santo - Last Filed: 07/13/18 12:44> (1) Chest pain Qualifiers: Chest pain type: unspecified Qualified Code(s): R07.9 - Chest pain, unspecified
--- NOTE | 2018-07-13 11:47 | P.DCO ---
- Home Health Nursing Order: Medical education, Signs/symptoms of disease process, Diabetic education , Medication education-adverse effect - Case Management Consult Yes - Certification I have seen patient Jc Forbes on 07/13/18. My clinical findings support the need for the requested home health care services because: Limited mobility due to disease progression, Patient has SOB, Deconditioned with increased weakness, Medication compliance is questionable, Limited ability to care for self, Need for psychosocial assistance, Impaired cognition/judgement , High risk of falls I certify that my clinical findings support that this patient is homebound because: Impaired cognitive ability/safety, Hx COPD - exertion dyspnea/weakness, Unsteady gait/balance, Unsafe to leave home unassisted, Need for psychosocial assistance
[2018-07-13 12:29] VITALS: BP 125/74; PULSE 72; TEMP 97.8; O2SAT 99
[2018-07-13 12:43] VITALS: RESP 15
[2018-07-13 14:40] LABS: Hemoglobin A1c 5.1 % (4.3-6.0)
--- NOTE | 2018-07-14 13:26 | ECG ---
Date Performed: 07/12/2018 Time Performed: 17:34:58 PTAGE: 63 years EKG: Sinus rhythm NORMAL ECG PREVIOUS TRACING : 07/12/2018 11.23 Since the previous tracing, no significant change noted DOCTOR: Inocente Lima Interpretating Date/Time 07/14/2018 13:25:17
--- NOTE | 2018-07-14 13:40 | ECG ---
Date Performed: 07/12/2018 Time Performed: 11:23:34 PTAGE: 63 years EKG: Sinus rhythm NORMAL ECG PREVIOUS TRACING : 03/18/2018 09.00 Since the previous tracing, no significant change noted DOCTOR: Inocente Lima Interpretating Date/Time 07/14/2018 13:39:15
== END 2018-07-13 13:57 | disposition home or self-care (01) ==
LOC: NEPC 10:24 → NEDA 16:30 → N07 17:58
PROVIDERS: ADMIT Family Medicine; ATTEND Family Medicine